=== PATIENT | female | born 1950 | race Caucasian/White ===

== ENCOUNTER → 2016-07-30 | Outpatient (CLI) | payer MEDICARE ==
--- NOTE | 2016-07-30 12:13 | US ---
EXAMINATION TYPE: US pelvis complete transvag DATE OF EXAM: 07/30/2016 11:58 AM COMPARISON: CT scan abdomen pelvis 2012 CLINICAL HISTORY: Menorrhagia N92.4. PMB, hx of tubal ligation TECHNIQUE: Transvaginal (TV) and Transabdominal (TA) Date of LMP: unknown, EXAM MEASUREMENTS: Uterus: 9.9 x 6.2 x 4.5 cm Endometrial Stripe: 2.9 cm Left Ovary: 2.7 x 1.6 x 1.0 cm 1. Uterus: Anteverted 2. Endometrium: thickened, heterogenous, vascular 3. Right Ovary: Obscured by overlying bowel gas 4. Left Ovary: wnl as visualized Spectral, color and waveform doppler imaging shows good arterial and venous flow within the ovaries ; there is no evidence for ovarian torsion. 5. Bilateral Adnexa: wnl 6. Posterior cul-de-sac: no free fluid. Prominent non peristalsing loop of bowel vs mass off MEHDI = 5.9 x 4.3 x 3.5 cm IMPRESSION: 1. Endometrium is thickened measuring 2.9 cm and heterogeneous. Endometrial pathology including hyper plasia or carcinoma in the differential diagnosis. 2. There is fullness in the lower uterine segment. Difficult to determine by ultrasound whether this is related to bowel loops versus mass measuring 5.[address] of the pelvis for further evalua tion.
== END | disposition home or self-care (01) ==
LOC: RADUSWWP 10:22
PROVIDERS: ATTEND Internal Medicine
DX: R93.8 Abnormal findings on diagnostic imaging of other specified body structures (principal); N85.9 Noninflammatory disorder of uterus, unspecified; N92.0 Excessive and frequent menstruation with regular cycle
CPT/HCPCS: 76830; 76856

== ENCOUNTER → 2016-08-01 | Outpatient (CLI) | payer MEDICARE ==
--- NOTE | 2016-08-01 15:14 | CT ---
EXAMINATION TYPE: CT pelvis w con DATE OF EXAM: 08/01/2016 2:50 PM REFERENCE: Previous study dated 03/02/2013 HISTORY: R19.09 pelvic mass HISTORY: Vaginal bleeding/spotting. CT DLP: 1297 mGy Automated exposure control for dose reduction was used. TECHNIQUE: Helical acquisition through the abdomen and pelvis was obtained following the oral ingesti on of with Oral Contrast and following intravenous administration of 100 mL of Omnipaque 300. The ronan a was reformatted in axial, coronal and sagittal projections. FINDINGS: There are multiple gallstones within the gallbladder. The uterus is mildly prominent and anteverted. Endometrial stripe measures 2.1 cm. Both ovaries appea r normal. The bladder is normal. There is no significant diverticular change and there is no radiographic evidence of diverticulitis. The appendix is not visualized. Visualized loops of small bowel appear normal. There is no free fluid and no free air. There is facet arthropathy in the lower lumbar facets. There is disc space loss and a vacuum phenomen a present at L2-3. IMPRESSION: 1. UTERUS IS SLIGHTLY PROMINENT WITH A THICKENED ENDOMETRIAL STRIPE. 2. CHOLELITHIASIS. 3. DEGENERATIVE CHANGES WITHIN THE SPINE. RECOMMENDATION: MRI OF THE PELVIS.
== END | disposition home or self-care (01) ==
LOC: RADCTMAIN 12:11
PROVIDERS: ATTEND Internal Medicine
DX: R93.8 Abnormal findings on diagnostic imaging of other specified body structures (principal); N92.1 Excessive and frequent menstruation with irregular cycle
CPT/HCPCS: 72193; Q9967

== ENCOUNTER → 2016-08-08 | Outpatient (CLI) | payer MEDICARE ==
--- NOTE | 2016-08-09 13:56 | MM ---
Reason for exam: screening (asymptomatic). Last mammogram was performed 5 years and 2 months ago. History: Patient is postmenopausal. Took hormonal contraceptives for 2 years. Took other hormone for 50 years. Physical Findings: A clinical breast exam by your physician is recommended on an annual basis and results should be correlated with mammographic findings. MG 3D Screening Mammo W/Cad Bilateral CC and MLO view(s) were taken. Prior study comparison: June 05, 2011, bilateral digital screening mammo w/CAD. June 28, 2009, mammogram, performed at [facility]. There are scattered fibroglandular densities. No suspicious calcifications. Enlarged right axillary lynph node. ASSESSMENT: Incomplete: need additional imaging evaluation, BI-RAD 0 RECOMMENDATION: Ultrasound of the right breast. [facility] will attempt to contact patient to return for ultrasound. Manage patient on a clinical basis.
== END | disposition home or self-care (01) ==
LOC: RADMAMWWP 13:19
PROVIDERS: ATTEND Internal Medicine
DX: Z12.31 Encounter for screening mammogram for malignant neoplasm of breast (principal); R92.2 Inconclusive mammogram
CPT/HCPCS: 77063; G0202

== ENCOUNTER → 2016-08-15 | Outpatient (CLI) | payer MEDICARE ==
--- NOTE | 2016-08-15 08:56 | USB ---
Reason for exam: additional evaluation requested from abnormal screening. History: Patient is postmenopausal. Took hormonal contraceptives for 2 years. Took other hormone for 50 years. Physical Findings: Nurse did not find any significant physical abnormalities on exam. US Breast Workup RT Right breast ultrasound includes all four quadrants, the retroareolar region and axilla. Finding demonstrate a 6 x 4 x 7mm oval, solid, hypoechoic, vascular lesion at 1 o'clock, multiple lymph nodes, largest 7mm at axilla tail and a 22 x 7 x 20mm irregular, solid, hypoechoic, vascular at boil in the axilla. These results were verbally communicated with the patient and result sheet given to the patient on 08/15/16 ASSESSMENT: Probably benign, BI-RAD 3 RECOMMENDATION: Ultrasound of the right breast in 6 months. 1 o'clock Manage patient on a clinical basis with regard to boil.
== END | disposition home or self-care (01) ==
LOC: RADUSWWP 07:30
PROVIDERS: ATTEND Internal Medicine
DX: R92.8 Other abnormal and inconclusive findings on diagnostic imaging of breast (principal)

== ENCOUNTER 2016-12-09 17:16 | Emergency (ER) | payer MEDICARE, OTHER ==
--- NOTE | 2016-12-09 18:04 | ED ---
General Adult HPI - General Chief complaint: Recheck/Abnormal Lab/Rx Stated complaint: female gu Time Seen by Provider: 12/09/16 17:24 Source: patient, RN notes reviewed Mode of arrival: ambulatory Limitations: no limitations - History of Present Illness Initial comments: 66-year-old female presents to the emergency department with a chief complaint of concern for fistula. Patient has stage III endometrial cancer. She states that for the past 10 days she's been passing some gas through her vaginal area so she is concerned that she may have a fistula. Patient states that she called her cancer doctor and he told her that she needed to see her [employer] oncologist. She states that she is here because she just wants the diagnostic test that when she follows up with her [employer] oncologist. He now what to do admit him start the next step. Patient denies pain with this she states she is not passing stool through the vagina. Patient denies any other symptoms at this time. Patient denies any recent fever, chills, shortness of breath, chest pain, back pain, abdominal pain, nausea vomiting, numbness or tingling, dysuria or hematuria, constipation or diarrhea, headaches or visual changes, or any other current symptoms. - Related Data Home Medications Medication Instructions Recorded Confirmed Diltiazem Oral [Cardizem*] 180 mg PO DAILY 08/19/13 12/09/16 Levothyroxine Sodium [Synthroid] 150 mcg PO DAILY 11/26/14 12/09/16 Citalopram Hydrobromide [CeleXA] 40 mg PO DAILY 12/09/16 12/09/16 Folic Acid 0.4 mg PO DAILY 12/09/16 12/09/16 Hydrocodone/Acetaminophen [[place] 1 tab PO Q6HR PRN 12/09/16 12/09/16 7.5-325] Methocarbamol [Robaxin-750] 750 mg PO Q6HR PRN 12/09/16 12/09/16 Multivitamins, Thera [Multivitamin 1 tab PO DAILY 12/09/16 12/09/16 (formulary)] Allergies Allergy/AdvReac Type Severity Reaction Status Date / Time No Known Allergies Allergy Verified 12/09/16 18:02 Review of Systems ROS Statement: Those systems with pertinent positive or pertinent negative responses have been documented in the HPI. ROS Other: All systems not noted in ROS Statement are negative. 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 Occassional left shoulder pain. Knee Problems progressing, beginning off issues of urinary incontinence. Deteriorating vision due to cataracts and subjective loss of hearing increasing with age. chronic back pain, used to use cpap machine before bariatric sx-no longer needed endometrial ca with mets to bladder and colon History of Any Multi-Drug Resistant Organisms: None Reported Past Surgical History: Bariatric Surgery, Tonsillectomy, Tubal Ligation Additional Past Surgical History / Comment(s): Gastric Stapling 1978, pilonidal cyst removed pain associated with knees. D&C, URSZULA-EN-Y,SUBTOTAL GASTRECTOMY, EGD. Past Anesthesia/Blood Transfusion Reactions: Motion Sickness Past Psychological History: Anxiety, Depression Smoking Status: Never smoker Past Alcohol Use History: None Reported Past Drug Use History: None Reported - Past Family History Mother Family Medical History: Neurologic Disorder Additional Family Medical History / Comment(s): PACEMAKER, PARKINSONS Father Family Medical History: Myocardial Infarction ([place]) Additional Family Medical History / Comment(s): AFTER HAVING HIS 3RD [place] General Exam Limitations: no limitations General appearance: alert, in no apparent distress ENT exam: Present: normal exam, mucous membranes moist Neck exam: Present: normal inspection. Absent: tenderness, meningismus, lymphadenopathy Respiratory exam: Present: normal lung sounds bilaterally. Absent: respiratory distress, wheezes, rales, rhonchi, stridor Cardiovascular Exam: Present: regular rate, normal rhythm, normal heart sounds. Absent: systolic murmur, diastolic murmur, rubs, gallop, clicks GI/Abdominal exam: Present: soft, normal bowel sounds. Absent: distended, tenderness, guarding, rebound, rigid Neurological exam: Present: alert, oriented X3 Psychiatric exam: Present: normal affect, normal mood Skin exam: Present: warm, dry, intact, normal color. Absent: rash Course Vital Signs 12/09/16 12/09/16 17:19 19:13 Temperature 97.7 F Pulse Rate 86 80 Respiratory 16 18 Rate Blood Pressure 113/59 116/57 O2 Sat by Pulse 100 100 Oximetry Medical Decision Making - Medical Decision Making 66-year-old female presents to the emergency department with a chief complaint of passing gas through vagina. At this time patient's CAT scan is been reviewed. We did thoroughly discuss the results and gave her copy of her results as well as a CT. She states she will follow-up with her doctor for this. She understand our hospital. This time we will discharge the patient. We discussed return parameters patient stated that she understood. Disposition Clinical Impression: Endometrial cancer, Fistula Disposition: HOME SELF-CARE Condition: Stable Instructions: Rectal Pain (ED) Additional Instructions: Please use medication as discussed. Please follow up with family doctor if symptoms have not improved over the next two days. Please return to the emergency room if your symptoms increase or worsen or for any other concerns. Referrals: Tereso Brown MD [Primary Care Provider] - 1-2 days Time of Disposition: 19:41
[2016-12-09 19:14] VITALS: BP 116/57; PULSE 80; RESP 18
--- NOTE | 2016-12-09 19:32 | CT ---
EXAMINATION TYPE: CT pelvis wo con DATE OF EXAM: 12/09/2016 COMPARISON: NONE HISTORY: Patient complains of passing gas through vagina. CT DLP: 958 mGycm Automated exposure control for dose reduction was used. FINDINGS: Although no direct fistulous communication is seen through the rectum to the uterus, vagina, or endom etrium, there is concern for fistula versus dehiscence of the known endometrial carcinoma and myometr ium as there is periuterine foci of free air. Small amount of adjacent free fluid is seen as well as diffuse rectal/distal sigmoid colonic eccentric anterior lobulated thickening with concern for invasi on such as on series 7 image 74. Within the remainder the visualized abdomen there are numerous calcified gallstones. Visualized porti on of the liver is grossly unremarkable. Air is noted within the left renal collecting system, howeve r a left ureteral stent is in place. No evidence of hydronephrosis. Small fat filled periumbilical he rnia is noted. Moderate amount of stool is seen within the colon. No evidence of bowel obstruction. P ancreas is atrophied and its visualized portions. Numerous prominent periaortic lymph nodes are seen. Mild degenerative changes of the visualized lumbosacral spine. IMPRESSION: NO DISCRETE FISTULOUS COMMUNICATION WITH THE RECTUM TO UTERUS, VAGINA OR ENDOMETRIUM. NUMEROUS FOCI O F PERIUTERINE FREE AIR INDICATIVE EITHER SMALL NONVISUALIZED RECTAL FISTULA OR DEHISCENCE OF THE KNOW N ENDOMETRIAL CARCINOMA/MYOMETRIUM. ADDITIONALLY ECCENTRIC THICKENING OF THE RECTUM AND DISTAL SIGMOI D COLON IS HIGHLY CONCERNING FOR INVASION OF NEOPLASM VERSUS LESS LIKELY REACTIVE INFLAMMATORY CHANGE .
[2016-12-09 19:49] VITALS: TEMP 98
== END 2016-12-09 19:49 | disposition home or self-care (01) ==
LOC: EC 17:16
DX: C54.1 Malignant neoplasm of endometrium (principal); N82.8 Other female genital tract fistulae; E07.9 Disorder of thyroid, unspecified; I11.0 Hypertensive heart disease with heart failure; I50.9 Heart failure, unspecified; M19.90 Unspecified osteoarthritis, unspecified site; F41.9 Anxiety disorder, unspecified; F32.9 Major depressive disorder, single episode, unspecified; G47.30 Sleep apnea, unspecified; Z99.89 Dependence on other enabling machines and devices; Z79.899 Other long term (current) drug therapy
CPT/HCPCS: 72192; 99283

== ENCOUNTER → 2017-03-02 | Outpatient (CLI) | payer MEDICARE, OTHER ==
--- NOTE | 2017-03-05 11:26 | PE ---
Nuclear medicine PET/CT HISTORY: C 54.1, subsequent Patient received 15.1 mCi F-18 FDG intravenously in delayed scanning was performed from the skull bas e to the mid thighs. Localization and attenuation correction CT scan was performed. Correlation to prior nuclear medicine PET/CT 10/31/2016, prior CT pelvis 12/09/2014 Neck and chest: No suspicious hypermetabolic uptake. No evident adenopathy. There is a port in the le ft pectoral region coursing via the subclavian approach into the superior vena cava. Pulmonary artery appears prominently on the right, correlate to exclude pulmonary artery hypertension. Coronary arter y calcifications are present. No pleural or pericardial effusion. Small prevascular nodes are present . No evident lung mass. Abdomen pelvis: There is postop change to the stomach and bowel in the upper abdomen. Metallic densit ies in the left upper quadrant cause streak artifact which could limit the exam. Gallstones are noted . Liver shows no definite mass on this noncontrast exam, no suspicious hypermetabolic uptake. Ostomy site present in the left lower quadrant. Retroperitoneal adenopathy is present as on prior between the inferior vena cava and aorta, axial monet ge 152 nonfused image showing associated hypermetabolic uptake, SUV is 10.5. Bilateral double-J ureteral stents are in place. Within the right iliac distribution at the level of the proximal external iliac vasculature there is an enlarged node which is more conspicuous than prior exam, axial image 205, there is associated hype rmetabolic uptake, SUV is 11.6. At the level of the rectosigmoid junction there is postop change pres ent, focal abnormal thickening of the bowel with associated tethering is present at this level, SUV i s 6.1. Uterus is not present. MUSCULOSKELETAL: Muscle uptake is thought to be physiologic. Bone show a stable appearance. IMPRESSION: Retroperitoneal, right pelvic adenopathy as on prior nuclear medicine PET/CT. Difficult t o exclude local recurrence of the anastomotic site at the rectosigmoid junction, consider endoscopy a lthough findings may be postoperative. Additional findings above.
== END | disposition home or self-care (01) ==
LOC: RADPETMAIN 07:51
PROVIDERS: ATTEND Internal Medicine
DX: C54.1 Malignant neoplasm of endometrium (principal); R59.0 Localized enlarged lymph nodes
CPT/HCPCS: 78815; A9552

== ENCOUNTER 2017-08-18 18:06 | Emergency (ER) | payer MEDICARE, OTHER ==
[2017-08-18 18:15] VITALS: TEMP 98.7
[2017-08-18] MEDS ORDERED: SODIUM CHLORIDE 0.9% 1,000 ML IV STA (18:43)
[2017-08-18] MEDS ORDERED: SODIUM CHLORIDE 0.9% 500 ML IV STA (18:43)
[2017-08-18 19:09] LABS: Basophils % (A) 0 %; Eosinophils # (A) 0.2 k/uL (0-0.7); Eosinophils % (A) 2 %; HCT 41.7 % (34.0-46.0); Lymphocytes # (A) 1.2 k/uL (1.0-4.8); Lymphocytes % (A) 15 %; MCH 32.5 pg (25.0-35.0); MCHC 33.5 g/dL (31.0-37.0); Mean Platelet Volume 6.3; Monocytes # (A) 0.5 k/uL (0-1.0); Monocytes % (A) 6 %; Neutrophils # (A) 5.8 k/uL (1.3-7.7); Neutrophils % (A) 73 %; Platelet Count 300 k/uL (150-450); RDW 12.9 % (11.5-15.5)
[2017-08-18 19:16] LABS: Albumin 4.1 g/dL (3.5-5.0); Calcium 9.4 mg/dL (8.4-10.2); Total Bilirubin 0.4 mg/dL (0.2-1.3)
[2017-08-18 19:18] LABS: Appearance,Urine Cloudy (Clear); Bacteria,Urine Few /hpf; Bilirubin,Urine Negative (Negative); Blood,Urine Moderate (Negative); Budding Yeast,Urine Rare /hpf; Color,Urine Yellow; Glucose,Urine (UA) Negative (Negative); Ketones,Urine Negative (Negative); Leukocyte Esterase,Urine Large (Negative); Mucus,Urine Rare /hpf; Nitrite,Urine Negative (Negative); PH, Urine 6.5 (5.0-8.0); Protein,Urine 1+ (Negative); RBC,Urine 86 /hpf (0-5); Squamous Epithelial Cell,Urine 2 /hpf (0-4); Urobilinogen,Urine <2.0 mg/dL (<2.0); WBC,Urine >182 /hpf (0-5)
--- NOTE | 2017-08-18 19:20 | ED ---
Abdominal Pain HPI - General Chief Complaint: Abdominal Pain Stated Complaint: Abd Pain, Hernia Time Seen by Provider: 08/18/17 18:28 Source: patient Mode of arrival: ambulatory Limitations: no limitations - History of Present Illness Initial Comments: 66 years O female presents with the abdominal pain and now she feels there is some hardening or there is a rounded lump around her colostomy area also suspect that colostomy maybe is not working adequately. Unfortunately she has a quite complex past surgical history he was diagnosed about 8 months ago with endometrial cancer with metastases to the bowels ureter and bladder, she is not on any chemo or radiation at this point. Denies any fever no chills no nausea no vomiting colostomy is working she had some stool this morning and she denies any nausea vomiting and review of system is unremarkable - Related Data Home Medications Medication Instructions Recorded Confirmed Diltiazem Oral [Cardizem*] 120 mg PO DAILY 08/19/13 05/03/17 Levothyroxine Sodium [Synthroid] 150 mcg PO DAILY 11/26/14 05/03/17 Citalopram Hydrobromide [CeleXA] 40 mg PO DAILY 12/09/16 05/03/17 Folic Acid 0.4 mg PO DAILY 12/09/16 05/03/17 Hydrocodone/Acetaminophen [[place] 1 tab PO Q6HR PRN 12/09/16 05/03/17 7.5-325] Multivitamins, Thera [Multivitamin 1 tab PO DAILY 12/09/16 05/03/17 (formulary)] Nitrofurantoin Monohyd/M-Cryst 100 mg PO BID 04/24/17 05/03/17 [Macrobid] fentaNYL [Duragesic 12MCG/HR] 12 mcg TRANSDERM Q72H 04/24/17 05/03/17 Allergies Allergy/AdvReac Type Severity Reaction Status Date / Time No Known Allergies Allergy Verified 08/18/17 18:10 Review of Systems ROS Statement: Those systems with pertinent positive or pertinent negative responses have been documented in the HPI. ROS Other: All systems not noted in ROS Statement are negative. 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 ENDOMETRIAL AND COLON CANCER. History of Any Multi-Drug Resistant Organisms: None Reported Past Surgical History: Bariatric Surgery, Bladder Surgery, Bowel Resection, Hysterectomy, Tonsillectomy, Tubal Ligation Additional Past Surgical History / Comment(s): Gastric Stapling 1978, pilonidal cyst removed pain associated with knees. D&C, URSZULA-EN-Y,SUBTOTAL GASTRECTOMY, EGD. 2 URINARY STENTS. COLOSTOMY. Past Anesthesia/Blood Transfusion Reactions: Motion Sickness Past Psychological History: Anxiety, Depression Smoking Status: Never smoker Past Alcohol Use History: None Reported Past Drug Use History: None Reported - Past Family History Mother Family Medical History: Neurologic Disorder Additional Family Medical History / Comment(s): PACEMAKER, PARKINSONS Father Family Medical History: Myocardial Infarction ([place]) Additional Family Medical History / Comment(s): AFTER HAVING HIS 3RD [place] General Exam - General Exam Comments Initial Comments: General: The patient is awake and alert, in no distress, and does not appear acutely ill. Skin: Skin is warm and dry and no rashes or lesions are noted. Eye: Pupils are equal, round and reactive to light, extra-ocular movements are intact; there is normal conjunctiva bilaterally. Ears, nose, mouth and throat: There are moist mucous membranes and no oral lesions. Neck: The neck is supple, there is no tenderness or JVD. Cardiovascular: There is a regular rate and rhythm. No murmur, rub or gallop is appreciated. Respiratory: To auscultation bilateral, no wheezing no rhonchi no distress respiratory ellison noticed Gastrointestinal: Noticed a area about 5 cm in width surrounding the colostomy is indurated not tender obvious infection noticed on the scan positive bowel sounds no signs of any peritonitis no guarding no rebounds noticed slight tenderness around the stoma. Back: There is no tenderness to palpation in the midline. There is no obvious deformity. Musculoskeletal: Normal ROM, no tenderness, There is no pedal edema. There is no calf tenderness or swelling. No cords were appreciated. Neurological: CN II-XII intact, Cranial nerves III through XII are intact. There are no obvious motor or sensory deficits. Coordination appears grossly intact. Speech is normal. Psychiatric: Cooperative, appropriate mood & affect, normal judgment. Limitations: no limitations Course Vital Signs 08/18/17 08/18/17 18:10 19:54 Temperature 98.7 F Pulse Rate 86 83 Respiratory 18 16 Rate Blood Pressure 116/72 135/63 O2 Sat by Pulse 97 97 Oximetry Upon reassessment noticed CBC is normal His metabolic panel is unremarkable urinalysis is significantly positive CT of the abdomen showed down stoma herniation of at least 2 separate zhao of small bowel activity left midline ostomy 1 with adepressed and another one is markedly dilated concerning for, his peristomal small bowel obstruction, surgery was done at [facility], I am in touch with him [facility] and trying to reach her surgical team so she could be transferred down there, this was discussed with the patient she is agreeable to go to [facility]. [id number] Arteaga him a she agreed to resume the care, she advised us to transfer the patient to the [facility] ER area as soon as EMS arrangements are made she would part for [facility], patient is agreeable with that Medical Decision Making - Lab Data Result diagrams: 08/18/17 18:55 08/18/17 18:55 Lab Results 08/18/17 08/18/17 08/18/17 Range/Units 18:55 18:55 19:00 WBC 8.0 (3.8-10.6) k/uL RBC 4.30 (3.80-5.40) m/uL Hgb 14.0 (11.4-16.0) gm/dL Hct 41.7 (34.0-46.0) % MCV 97.0 (80.0-100.0) fL MCH 32.5 (25.0-35.0) pg MCHC 33.5 (31.0-37.0) g/dL RDW 12.9 (11.5-15.5) % Plt Count 300 (150-450) k/uL Neutrophils % 73 % Lymphocytes % 15 % Monocytes % 6 % Eosinophils % 2 % Basophils % 0 % Neutrophils # 5.8 (1.3-7.7) k/uL Lymphocytes # 1.2 (1.0-4.8) k/uL Monocytes # 0.5 (0-1.0) k/uL Eosinophils # 0.2 (0-0.7) k/uL Basophils # 0.0 (0-0.2) k/uL Sodium 137 (137-145) mmol/L Potassium 5.0 (3.5-5.1) mmol/L Chloride 101 (98-107) mmol/L Carbon Dioxide 25 (22-30) mmol/L Anion Gap 11 mmol/L BUN 22 H (7-17) mg/dL Creatinine 1.04 (0.52-1.04) mg/dL Est GFR (CKD-EPI)AfAm 65 (>60 ml/min/1.73 sqM) Est GFR (CKD-EPI)NonAf 57 (>60 ml/min/1.73 sqM) Glucose 128 H (74-99) mg/dL Calcium 9.4 (8.4-10.2) mg/dL Total Bilirubin 0.4 (0.2-1.3) mg/dL AST 26 (14-36) U/L ALT 29 (9-52) U/L Alkaline Phosphatase 112 (38-126) U/L Total Protein 7.0 (6.3-8.2) g/dL Albumin 4.1 (3.5-5.0) g/dL Amylase 48 (30-110) U/L Lipase 49 (23-300) U/L Urine Color Yellow Urine Appearance Cloudy H (Clear) Urine pH 6.5 (5.0-8.0) Ur Specific [place] 1.010 (1.001-1.035) Urine Protein 1+ H (Negative) Urine Glucose (UA) Negative (Negative) Urine Ketones Negative (Negative) Urine Blood Moderate H (Negative) Urine Nitrite Negative (Negative) Urine Bilirubin Negative (Negative) Urine Urobilinogen <2.0 (<2.0) mg/dL Ur Leukocyte Esterase Large H (Negative) Urine RBC 86 H (0-5) /hpf Urine WBC >182 H (0-5) /hpf Urine WBC Clumps Moderate H (None) /hpf Ur Squamous Epith Cells 2 (0-4) /hpf Urine Bacteria Few H (None) /hpf Urine Mucus Rare H (None) /hpf Urine Yeast (Budding) Rare H (None) /hpf Disposition Clinical Impression: Abdominal pain, Small bowel obstruction Disposition: OTHER INSTITUTION NOT DEFINED Referrals: Tereso Brown MD [Primary Care Provider] - 1-2 days - Out of Hospital Transfer - Req. Specs Out of Hospital Transfer - Requested Specifics: Other Emergency Center (She will be transferred to [facility], Dr. Arteaga advised that we send the patient to the [facility])
[2017-08-18] MEDS ORDERED: cefTRIAXone 2,000 MG in SODIUM CHLORIDE 0.9% 100 ML IVPB STA (19:23)
[2017-08-18] MEDS ORDERED: cefTRIAXone IN SWFI 2,000 MG/20 ML SYRINGE IVP STA (19:24)
--- NOTE | 2017-08-18 19:28 | XR ---
EXAMINATION TYPE: XR KUB DATE OF EXAM: 08/18/2017 7:23 PM CLINICAL HISTORY: Palpable abnormality of the left lower quadrant. TECHNIQUE: Single upright image of the abdomen is obtained. COMPARISON: 03/15/2013. FINDINGS: Bilateral ureteral stents are noted. Numerous choleliths are seen. Surgical changes are not ed of the left upper quadrant. Moderate amount retained colonic stool is seen. Scattered gas is seen in non-distended small bowel loops. Gas and fecal material is seen in non-distended colon. There is n o visceromegaly, pneumoperitoneum, or abnormal calcification appreciated. The lung bases are clear an d the osseous structures are intact. IMPRESSION: 1. Moderate amount retained colonic stool in an overall nonobstructive bowel gas pattern. 2. Cholelithiasis. 3. Bilateral ureteral stents.
[2017-08-18 19:56] VITALS: RESP 16
--- NOTE | 2017-08-18 21:12 | CT ---
EXAMINATION TYPE: CT abdomen pelvis w con DATE OF EXAM: 08/18/2017 HISTORY: Patient complains of bulge around colostomy. CT DLP: 1624.6mGycm Automated Exposure Control for Dose Reduction was Utilized. CONTRAST: CT scan of the abdomen and pelvis is performed with IV Contrast, patient injected with 100 mL of Isov ue 300. COMPARISON: PET/CT dated 03/02/2017. FINDINGS: LUNG BASES: No significant abnormality is appreciated. LIVER/GB: Multiple lamellated gallstones layer within the gallbladder body and fundus dependently. Un enhanced liver is grossly unremarkable. PANCREAS: Atrophic and partially obscured. SPLEEN: No significant abnormality is seen. ADRENALS: Bilateral adrenal glands are enlarged but maintain adreniform shape suspected to represent underlying adrenal gland hyperplasia. KIDNEYS: Bilateral ureteral stents are identified with residual mild bilateral hydroureter ureteral n ephrosis and periureteral fat stranding in addition to uroepithelial thickening. Distal aspects are w ithin the urinary bladder and proximal aspects are appropriately placed within the renal pelvic colle cting system. BOWEL: In addition to the loop of decompressed presumably transverse colon for which the ostomy was c reated there are least 2 different segments of entering small bowel the more left lateral demonstrate small bowel wall thickening and decompression and entering and exiting loops in the more medial cont aining an anastomotic site and markedly dilated containing small bowel feces sign and just before ent ering measuring up to 6.7 cm, proximally dilated. There is also proximal dilatation and small bowel f eces sign of multiple loops of small bowel in the midline abdomen and low pelvis. Mesenteric congesti on is seen in central surrounding mesenteric haziness. Surgical clips in the left upper cord and crea te extensive spray artifact limiting visualization. Partial gastrectomy appears to have been performe d in addition to the diverting ostomy. Moderate amount retained colonic stool is seen. Colon does not appear dilated. Fat stranding from prior incision site is seen within the ventral abdomen. UTERUS/ADNEXA: Surgically absent. LYMPH NODES: Evaluation for adenopathy is limited given the numerous dilated loops is small bowel. Ho wever there appear to be multiple prominent periaortic and left perirenal lymph nodes such as on seri es 3 image 26 measuring up to 1.1 cm in short axis left paracentrally. Right external chain inguinal adenopathy is also seen measuring up to 1.4 cm in short axis on series 3 image 58 to prominent but no nenlarged superficial inguinal lymph nodes are also noted. OSSEOUS STRUCTURES: Multilevel degenerative change with no suspicious osseous lesion. IMPRESSION: 1. Stomal herniation of at least 2 separate loops of small bowel activity left midline ostomy. One of the loops is decompressed and the other is markedly dilated concerning for stomal/parastomal small b owel obstruction. Correlate with reducibility. 2. Redemonstration of retroperitoneal adenopathy is seen on the prior exam of 03/02/2017 and adenopat hy within the right external iliac chain.
[2017-08-18 23:38] VITALS: BP 119/67; PULSE 79
== END 2017-08-19 00:06 | disposition other institution (70) ==
LOC: EC 18:06
DX: K56.609 Unspecified intestinal obstruction, unspecified as to partial versus complete obstruction (principal); I11.0 Hypertensive heart disease with heart failure; I50.9 Heart failure, unspecified; H91.90 Unspecified hearing loss, unspecified ear; M19.90 Unspecified osteoarthritis, unspecified site; E07.9 Disorder of thyroid, unspecified; G47.30 Sleep apnea, unspecified; F32.9 Major depressive disorder, single episode, unspecified; F41.9 Anxiety disorder, unspecified; Z87.19 Personal history of other diseases of the digestive system; Z99.89 Dependence on other enabling machines and devices; Z98.84 Bariatric surgery status; Z90.710 Acquired absence of both cervix and uterus; Z98.51 Tubal ligation status; Z93.3 Colostomy status; Z96.0 Presence of urogenital implants; Z85.038 Personal history of other malignant neoplasm of large intestine; Z85.51 Personal history of malignant neoplasm of bladder; Z85.54 Personal history of malignant neoplasm of ureter; Z85.42 Personal history of malignant neoplasm of other parts of uterus; Z79.899 Other long term (current) drug therapy
CPT/HCPCS: 36415; 80053; 82150; 83690; 85025; 81001; 87086; 74018; 74177; 99285; 96374; 96361 ×5; J0696; Q9967

== ENCOUNTER 2017-08-28 18:30 | Emergency (ER) | payer MEDICARE, OTHER ==
[2017-08-28 19:07] VITALS: TEMP 98.2
[2017-08-28] MEDS ORDERED: SODIUM CHLORIDE 0.9% 500 ML IV ONE (20:47)
--- NOTE | 2017-08-28 20:51 | ED ---
Abdominal Pain HPI - General Chief Complaint: Abdominal Pain Stated Complaint: Colostomy Problems Time Seen by Provider: 08/28/17 20:30 Source: patient Mode of arrival: ambulatory Limitations: no limitations - History of Present Illness Initial Comments: 67-year-old female patient presents to the emergency department today for evaluation of left lower quadrant abdominal pain and decreased output from her colostomy. Patient states that she has history of colon cancer with subsequent bowel resection and colostomy placement. Patient states that approximately 10 days ago she had similar symptoms with increased pain and decreased output and was transferred to [place] where her surgeon is located. States that she had a hernia repair through the colostomy site 1 week ago. States that over the last 2 days she has had decreased output from the colostomy. Patient states that she has increased pain surrounding the colostomy site with firmness. Patient states she is eating and drinking without difficulty. Denies any nausea or vomiting. Denies any fevers or chills. Denies any hematochezia or melena. States that she does have frequency of urination and dysuria and is concerned she may also have a urinary tract infection. Patient denies any recent rash, shortness breath, chest pain, back pain, numbness, tingling, dizziness, weakness , headache, visual changes, or any other complaints. - Related Data Home Medications Medication Instructions Recorded Confirmed Diltiazem Oral [Cardizem*] 120 mg PO DAILY 08/19/13 05/03/17 Levothyroxine Sodium [Synthroid] 150 mcg PO DAILY 11/26/14 05/03/17 Citalopram Hydrobromide [CeleXA] 40 mg PO DAILY 12/09/16 05/03/17 Folic Acid 0.4 mg PO DAILY 12/09/16 05/03/17 Hydrocodone/Acetaminophen [[place] 1 tab PO Q6HR PRN 12/09/16 05/03/17 7.5-325] Multivitamins, Thera [Multivitamin 1 tab PO DAILY 12/09/16 05/03/17 (formulary)] Nitrofurantoin Monohyd/M-Cryst 100 mg PO BID 04/24/17 05/03/17 [Macrobid] fentaNYL [Duragesic 12MCG/HR] 12 mcg TRANSDERM Q72H 04/24/17 05/03/17 Previous Rx's Medication Instructions Recorded Ciprofloxacin HCl [Cipro] 500 mg PO Q12HR #14 tablet 08/28/17 Allergies Allergy/AdvReac Type Severity Reaction Status Date / Time No Known Allergies Allergy Verified 08/28/17 19:07 Review of Systems ROS Statement: Those systems with pertinent positive or pertinent negative responses have been documented in the HPI. ROS Other: All systems not noted in ROS Statement are negative. 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 ENDOMETRIAL AND COLON CANCER. History of Any Multi-Drug Resistant Organisms: None Reported Past Surgical History: Bariatric Surgery, Bladder Surgery, Bowel Resection, Hysterectomy, Tonsillectomy, Tubal Ligation Additional Past Surgical History / Comment(s): Gastric Stapling 1978, pilonidal cyst removed pain associated with knees. D&C, URSZULA-EN-Y,SUBTOTAL GASTRECTOMY, EGD. 2 URINARY STENTS. COLOSTOMY. Past Anesthesia/Blood Transfusion Reactions: Motion Sickness Past Psychological History: Anxiety, Depression Smoking Status: Never smoker Past Alcohol Use History: None Reported Past Drug Use History: None Reported - Past Family History Mother Family Medical History: Neurologic Disorder Additional Family Medical History / Comment(s): PACEMAKER, PARKINSONS Father Family Medical History: Myocardial Infarction ([place]) Additional Family Medical History / Comment(s): AFTER HAVING HIS 3RD [place] General Exam Limitations: no limitations General appearance: alert, in no apparent distress, other (This is a well- developed, obese adult female patient in no acute distress. Vital signs upon presentation are temperature 98.2F, pulse 77, respirations 16, blood pressure 125/85, pulse ox 97% on room air.) Eye exam: Present: normal appearance, PERRL, EOMI. Absent: scleral icterus, conjunctival injection, periorbital swelling ENT exam: Present: normal exam, normal oropharynx, mucous membranes moist Respiratory exam: Present: normal lung sounds bilaterally. Absent: respiratory distress, wheezes, rales, rhonchi, stridor Cardiovascular Exam: Present: regular rate, normal rhythm, normal heart sounds. Absent: systolic murmur, diastolic murmur, rubs, gallop, clicks GI/Abdominal exam: Present: soft, tenderness (Tenderness surrounding colostomy site), normal bowel sounds, other (firmness just superior to the colostomy. ). Absent: distended, guarding, rebound, rigid Neurological exam: Present: alert, oriented X3, CN II-XII intact Psychiatric exam: Present: normal affect, normal mood Skin exam: Present: warm, dry, intact, normal color. Absent: rash Course Vital Signs 08/28/17 08/28/17 19:05 23:25 Temperature 98.2 F 98.2 F Pulse Rate 77 60 Respiratory 16 18 Rate Blood Pressure 125/85 131/60 O2 Sat by Pulse 97 99 Oximetry Medical Decision Making - Medical Decision Making 67-year-old female patient presents to emergency department today for evaluation of decreased output from her ostomy and is surrounding abdominal pain. Physical examination does reveal some mild tenderness superior to the ostomy site. Labs reviewed and did show evidence of urinary tract infection but no other abnormalities. We did obtain CT of the abdomen and pelvis as patient did have recent procedure for hernia repair. There is no evidence of bowel obstruction at this time and no evidence for acute abdomen and pelvis. I did discuss findings and results with the patient. She is will be given a prescription for urinary tract infection treatment. She is instructed to follow -up with her abdominal surgeon as soon as possible for recheck. Return parameters discussed in detail. She verbalizes understanding and agrees with this plan. - Lab Data Result diagrams: 08/28/17 21:11 08/28/17 21:11 Lab Results 08/28/17 08/28/17 08/28/17 Range/Units 21:11 21:11 21:11 WBC 8.3 (3.8-10.6) k/uL RBC 3.97 (3.80-5.40) m/uL Hgb 12.5 (11.4-16.0) gm/dL Hct 37.7 (34.0-46.0) % MCV 95.0 (80.0-100.0) fL MCH 31.4 (25.0-35.0) pg MCHC 33.0 (31.0-37.0) g/dL RDW 12.6 (11.5-15.5) % Plt Count 349 (150-450) k/uL Neutrophils % 51 % Lymphocytes % 32 % Monocytes % 7 % Eosinophils % 7 % Basophils % 0 % Neutrophils # 4.3 (1.3-7.7) k/uL Lymphocytes # 2.7 (1.0-4.8) k/uL Monocytes # 0.6 (0-1.0) k/uL Eosinophils # 0.6 (0-0.7) k/uL Basophils # 0.0 (0-0.2) k/uL Sodium 137 (137-145) mmol/L Potassium 4.4 (3.5-5.1) mmol/L Chloride 102 (98-107) mmol/L Carbon Dioxide 26 (22-30) mmol/L Anion Gap 9 mmol/L BUN 15 (7-17) mg/dL Creatinine 0.60 (0.52-1.04) mg/dL Est GFR (CKD-EPI)AfAm >90 (>60 ml/min/1.73 sqM) Est GFR (CKD-EPI)NonAf >90 (>60 ml/min/1.73 sqM) Glucose 87 (74-99) mg/dL Calcium 8.7 (8.4-10.2) mg/dL Total Bilirubin 0.2 (0.2-1.3) mg/dL AST 38 H (14-36) U/L ALT 23 (9-52) U/L Alkaline Phosphatase 98 (38-126) U/L Total Protein 6.3 (6.3-8.2) g/dL Albumin 3.4 L (3.5-5.0) g/dL Amylase 45 (30-110) U/L Lipase 109 (23-300) U/L Urine Color Yellow Urine Appearance Turbid H (Clear) Urine pH 7.0 (5.0-8.0) Ur Specific [place] 1.012 (1.001-1.035) Urine Protein Trace H (Negative) Urine Glucose (UA) Negative (Negative) Urine Ketones Negative (Negative) Urine Blood Moderate H (Negative) Urine Nitrite Negative (Negative) Urine Bilirubin Negative (Negative) Urine Urobilinogen <2.0 (<2.0) mg/dL Ur Leukocyte Esterase Large H (Negative) Urine RBC 48 H (0-5) /hpf Urine WBC >182 H (0-5) /hpf Urine WBC Clumps Many H (None) /hpf Ur Squamous Epith Cells 4 (0-4) /hpf Urine Mucus Rare H (None) /hpf - Radiology Data Radiology results: report reviewed, image reviewed CT of the abdomen and pelvis with contrast was obtained. Report was reviewed in its entirety. Impression by Dr. Zaidi shows clearing of mild right- sided hydronephrosis compared to old exam. There is minimal left-sided hydronephrosis that is unchanged. Ureteral stents appear to be in fairly good position. There is less large bowel distention compared to last exam. Disposition Clinical Impression: Abdominal pain, Urinary tract infection Disposition: HOME SELF-CARE Condition: Good Instructions: Abdominal Pain (ED) Additional Instructions: Increase fluids. Follow-up with your abdominal surgeon tomorrow. Complete antibiotic prescription in full. Return here immediately for any new, worsening , or concerning symptoms. Prescriptions: Ciprofloxacin HCl [Cipro] 500 mg PO Q12HR #14 tablet Is patient prescribed a controlled substance at d/c from ED?: No Referrals: Tereso Brown MD [Primary Care Provider] - 1-2 days Time of Disposition: 22:58
[2017-08-28 21:18] LABS: Basophils % (A) 0 %; Eosinophils # (A) 0.6 k/uL (0-0.7); Eosinophils % (A) 7 %; HCT 37.7 % (34.0-46.0); HGB 12.5 gm/dL (11.4-16.0); Lymphocytes # (A) 2.7 k/uL (1.0-4.8); Lymphocytes % (A) 32 %; MCH 31.4 pg (25.0-35.0); Mean Platelet Volume 6.9; Monocytes # (A) 0.6 k/uL (0-1.0); Monocytes % (A) 7 %; Neutrophils # (A) 4.3 k/uL (1.3-7.7); Neutrophils % (A) 51 %; Platelet Count 349 k/uL (150-450); RBC 3.97 m/uL (3.80-5.40); RDW 12.6 % (11.5-15.5); WBC 8.3 k/uL (3.8-10.6)
[2017-08-28 21:35] LABS: ALT 23 U/L (9-52); AST 38 U/L (14-36); Albumin 3.4 g/dL (3.5-5.0); Alkaline Phosphatase 98 U/L (38-126); Amylase 45 U/L (30-110); Anion Gap 9 mmol/L; Blood Urea Nitrogen 15 mg/dL (7-17); Calcium 8.7 mg/dL (8.4-10.2); Carbon Dioxide 26 mmol/L (22-30); Chloride 102 mmol/L (98-107); Glucose 87 mg/dL (74-99); Lipase 109 U/L (23-300); Potassium 4.4 mmol/L (3.5-5.1); Sodium 137 mmol/L (137-145); Total Bilirubin 0.2 mg/dL (0.2-1.3); Total Protein 6.3 g/dL (6.3-8.2)
[2017-08-28 21:45] LABS: Appearance,Urine Turbid (Clear); Bilirubin,Urine Negative (Negative); Blood,Urine Moderate (Negative); Color,Urine Yellow; Glucose,Urine (UA) Negative (Negative); Ketones,Urine Negative (Negative); Leukocyte Esterase,Urine Large (Negative); Mucus,Urine Rare /hpf; Nitrite,Urine Negative (Negative); Protein,Urine Trace (Negative); RBC,Urine 48 /hpf (0-5); Specific Gravity,Urine 1.012 (1.001-1.035); Squamous Epithelial Cell,Urine 4 /hpf (0-4); Urobilinogen,Urine <2.0 mg/dL (<2.0); WBC,Urine >182 /hpf (0-5)
--- NOTE | 2017-08-28 22:24 | CT ---
EXAMINATION TYPE: CT abdomen pelvis w con DATE OF EXAM: 08/28/2017 COMPARISON: 08/18/2017 HISTORY: abdominal pain following hernia repair, recent bowel resection for colon ca CT DLP: 1563.6 mGycm Automated exposure control for dose reduction was used. TECHNIQUE: Helical acquisition of images was performed from the lung bases through the pelvis. CONTRAST: Performed without Oral Contrast and with IV Contrast, patient injected with 100 mL of Isovue 300. FINDINGS: The lung bases are clear of infiltrate. There is no pleural effusion. There is no pericardial effusio n. Liver spleen pancreas appear normal. Bile ducts are not dilated. There are numerous calcified gall stones. There is no adrenal mass. There is mild left-sided hydronephrosis. There are bilateral double-J urete ral stents. These appear in fairly good position. There is anterior abdominal wall surgery. There is a left-sided colostomy. There is some air anterior ly that is probably in loops of bowel. A small pneumoperitoneum cannot be entirely excluded. I see no intestinal wall thickening. There are no dilated loops. Bladder distends smoothly. I see no pelvic m ass. There is no ascites. I see no bony destructive process. IMPRESSION: THERE IS CLEARING OF MILD RIGHT-SIDED HYDRONEPHROSIS COMPARED TO OLD EXAM. THERE IS A MINIMAL LEFT-SI DED HYDRONEPHROSIS THAT IS UNCHANGED. URETERAL STENTS APPEAR TO BE IN FAIRLY GOOD POSITION. THERE IS LESS LARGE BOWEL DISTENTION COMPARED TO LAST EXAM.
[2017-08-28] MEDS ORDERED: cefTRIAXone IN SWFI 1,000 MG/10 ML SYRINGE IVP STA (22:56)
[2017-08-28 23:26] VITALS: BP 131/60; PULSE 60; RESP 18
== END 2017-08-28 23:25 | disposition home or self-care (01) ==
LOC: EC 18:30
DX: N39.0 Urinary tract infection, site not specified (principal); I11.0 Hypertensive heart disease with heart failure; I50.9 Heart failure, unspecified; M19.90 Unspecified osteoarthritis, unspecified site; E07.9 Disorder of thyroid, unspecified; F41.9 Anxiety disorder, unspecified; F32.9 Major depressive disorder, single episode, unspecified; G47.30 Sleep apnea, unspecified; Z99.89 Dependence on other enabling machines and devices; Z85.42 Personal history of malignant neoplasm of other parts of uterus; Z85.038 Personal history of other malignant neoplasm of large intestine; Z98.84 Bariatric surgery status; Z90.710 Acquired absence of both cervix and uterus; Z98.890 Other specified postprocedural states; Z98.51 Tubal ligation status; Z93.3 Colostomy status; Z79.891 Long term (current) use of opiate analgesic; Z79.899 Other long term (current) drug therapy
CPT/HCPCS: 36415; 80053; 82150; 83690; 85025; 81001; 74177; 99284; 96374; 96361; J0696; Q9967

== ENCOUNTER 2018-01-13 22:10 | Emergency (ER) | payer MEDICARE, OTHER ==
[2018-01-13 22:21] VITALS: RESP 18
--- NOTE | 2018-01-13 23:07 | ED ---
General Adult HPI - General Chief complaint: GI Bleed Stated complaint: rectal bleeding;pain from Stage 4 cancer Time Seen by Provider: 01/13/18 22:24 Source: patient, RN notes reviewed Mode of arrival: ambulatory Limitations: no limitations - History of Present Illness Initial comments: This is a 67-year-old female with a history of uterine as well as colorectal cancer status post hysterectomy status post colostomy who states she's been having blood per rectum and blood in her urine for quite a few weeks also states she's been having chronic pain in his been using one half of her fentanyl patches and has since run out also run out of her OxyContin code own is due to be replaced on 2 days now who is here today because of pain also because of bleeding. She is a palliative care. Denies any fevers chills sweats per her friend was whether she does look more pale than usual. She has no other complaints this time. - Related Data Home Medications Medication Instructions Recorded Confirmed Levothyroxine Sodium [Synthroid] 150 mcg PO DAILY 11/26/14 01/13/18 Citalopram Hydrobromide [CeleXA] 40 mg PO DAILY 12/09/16 01/13/18 Multivitamins, Thera [Multivitamin 1 tab PO DAILY 12/09/16 01/13/18 (formulary)] Acetaminophen [Tylenol Arthritis] 650 mg PO BID 01/13/18 01/13/18 Decadron (Unknown) 1 tab PO DAILY 01/13/18 Diltiazem Cd [Cardizem CD] 120 mg PO DAILY 01/13/18 01/13/18 Ergocalciferol (Vitamin D2) 50,000 unit PO Q7D 01/13/18 01/13/18 [Drisdol] Ibuprofen [Motrin] 800 mg PO TID 01/13/18 01/13/18 K-Dur (Unknown) 1 tab PO DAILY 01/13/18 L.acidoph,Paracasei, B.lactis 1 cap PO DAILY 01/13/18 01/13/18 [Probiotic] Lasix (Unknown) 1 tab PO DAILY 01/13/18 Omeprazole 20 mg PO DAILY 01/13/18 01/13/18 SILVER sulfADIAZINE Cream 1 applic TOPICAL DAILY 01/13/18 01/13/18 [Silvadene 1% Cream] Sulfamethoxazole/Trimethoprim 1 tab PO BID 01/13/18 01/13/18 [Bactrim DS 800-160 mg] oxyCODONE-APAP 5-325MG [Percocet 1 tab PO QID 01/13/18 01/13/18 5-325 mg] Previous Rx's Medication Instructions Recorded Hydrocodone/Acetaminophen [Freeburn 1 tab PO Q4HR PRN 3 Days #18 tab 01/14/18 7.5-325] Allergies Allergy/AdvReac Type Severity Reaction Status Date / Time No Known Allergies Allergy Verified 01/13/18 23:18 Review of Systems ROS Statement: Those systems with pertinent positive or pertinent negative responses have been documented in the HPI. ROS Other: All systems not noted in ROS Statement are negative. 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 ENDOMETRIAL AND COLON CANCER. History of Any Multi-Drug Resistant Organisms: None Reported Past Surgical History: Bariatric Surgery, Bladder Surgery, Bowel Resection, Hysterectomy, Tonsillectomy, Tubal Ligation Additional Past Surgical History / Comment(s): Gastric Stapling 1978, pilonidal cyst removed pain associated with knees. D&C, URSZULA-EN-Y,SUBTOTAL GASTRECTOMY, EGD. 2 URINARY STENTS. COLOSTOMY. Past Anesthesia/Blood Transfusion Reactions: Motion Sickness Past Psychological History: Anxiety, Depression Smoking Status: Never smoker Past Alcohol Use History: None Reported Past Drug Use History: None Reported - Past Family History Mother Family Medical History: Neurologic Disorder Additional Family Medical History / Comment(s): PACEMAKER, PARKINSONS Father Family Medical History: Myocardial Infarction ([place]) Additional Family Medical History / Comment(s): AFTER HAVING HIS 3RD CT General Exam - General Exam Comments Initial Comments: Is a well-developed well-nourished awake alert but pale appearing female Limitations: no limitations General appearance: alert, in no apparent distress Head exam: Present: atraumatic, normocephalic, normal inspection Eye exam: Present: other (Pale conjunctiva) Pupils: Present: normal accommodation ENT exam: Present: normal exam, mucous membranes moist Neck exam: Present: normal inspection. Absent: tenderness, meningismus, lymphadenopathy Respiratory exam: Present: normal lung sounds bilaterally. Absent: respiratory distress, wheezes, rales, rhonchi, stridor Cardiovascular Exam: Present: regular rate, normal rhythm, normal heart sounds. Absent: systolic murmur, diastolic murmur, rubs, gallop, clicks GI/Abdominal exam: Present: soft, normal bowel sounds. Absent: distended, tenderness, guarding, rebound, rigid Extremities exam: Present: normal inspection, full ROM, normal capillary refill. Absent: tenderness, pedal edema, joint swelling, calf tenderness Back exam: Present: normal inspection Neurological exam: Present: alert, oriented X3, CN II-XII intact Psychiatric exam: Present: normal affect, normal mood Skin exam: Present: warm, dry, intact, pallor. Absent: normal color, rash Course Vital Signs 01/13/18 22:15 Temperature 99.3 F Pulse Rate 89 Respiratory 18 Rate Blood Pressure 165/82 O2 Sat by Pulse 98 Oximetry Medical Decision Making - Medical Decision Making I did discuss findings with the patient. Hemoglobin is within normal limits the history further workup at this time. She'll be discharged she did receive fentanyl patch and will get a short course of replacement Freeburn until she get her prescription filled 2 days.( - Lab Data Result diagrams: 01/13/18 23:20 01/13/18 23:20 Lab Results 01/13/18 01/13/18 01/13/18 Range/Units 23:20 23:20 23:20 WBC 7.1 (3.8-10.6) k/uL RBC 3.80 (3.80-5.40) m/uL Hgb 12.2 (11.4-16.0) gm/dL Hct 36.8 (34.0-46.0) % MCV 96.9 (80.0-100.0) fL MCH 32.0 (25.0-35.0) pg MCHC 33.0 (31.0-37.0) g/dL RDW 14.4 (11.5-15.5) % Plt Count 210 (150-450) k/uL Neutrophils % 88 % Lymphocytes % 6 % Monocytes % 5 % Eosinophils % 1 % Basophils % 0 % Neutrophils # 6.2 (1.3-7.7) k/uL Lymphocytes # 0.4 L (1.0-4.8) k/uL Monocytes # 0.3 (0-1.0) k/uL Eosinophils # 0.1 (0-0.7) k/uL Basophils # 0.0 (0-0.2) k/uL Sodium 136 L (137-145) mmol/L Potassium 4.1 (3.5-5.1) mmol/L Chloride 108 H (98-107) mmol/L Carbon Dioxide 22 (22-30) mmol/L Anion Gap 6 mmol/L BUN 37 H (7-17) mg/dL Creatinine 0.63 (0.52-1.04) mg/dL Est GFR (CKD-EPI)AfAm >90 (>60 ml/min/1.73 sqM) Est GFR (CKD-EPI)NonAf >90 (>60 ml/min/1.73 sqM) Glucose 132 H (74-99) mg/dL Calcium 8.2 L (8.4-10.2) mg/dL Magnesium 2.3 (1.6-2.3) mg/dL Total Bilirubin 0.4 (0.2-1.3) mg/dL AST 19 (14-36) U/L ALT 22 (9-52) U/L Alkaline Phosphatase 54 (38-126) U/L Total Protein 5.4 L (6.3-8.2) g/dL Albumin 2.9 L (3.5-5.0) g/dL Urine Color Red Urine Appearance Turbid H (Clear) Urine pH 6.0 (5.0-8.0) Ur Specific [place] 1.020 (1.001-1.035) Urine Protein 2+ H (Negative) Urine Glucose (UA) Negative (Negative) Urine Ketones Negative (Negative) Urine Blood Large H (Negative) Urine Nitrite Negative (Negative) Urine Bilirubin Negative (Negative) Urine Urobilinogen <2.0 (<2.0) mg/dL Ur Leukocyte Esterase Large H (Negative) Urine RBC >182 H (0-5) /hpf Urine WBC >182 H (0-5) /hpf Urine WBC Clumps Moderate H (None) /hpf Ur Squamous Epith Cells 4 (0-4) /hpf Urine Bacteria Rare H (None) /hpf Urine Mucus Rare H (None) /hpf Urine Yeast (Budding) Few H (None) /hpf Disposition Clinical Impression: Intractable pain, Metastatic colon cancer in female, Hematuria Disposition: HOME SELF-CARE Condition: Stable Prescriptions: Hydrocodone/Acetaminophen [Freeburn 7.5-325] 1 tab PO Q4HR PRN 3 Days #18 tab PRN Reason: Pain Is patient prescribed a controlled substance at d/c from ED?: Yes If prescribed controlled substance>3 days was MAPS reviewed?: Yes Referrals: Tereso Brown MD [Primary Care Provider] - 1-2 days
[2018-01-13 23:34] LABS: Basophils % (A) 0 %; Eosinophils # (A) 0.1 k/uL (0-0.7); Eosinophils % (A) 1 %; HCT 36.8 % (34.0-46.0); HGB 12.2 gm/dL (11.4-16.0); Lymphocytes # (A) 0.4 k/uL (1.0-4.8); Lymphocytes % (A) 6 %; MCV 96.9 fL (80.0-100.0); Mean Platelet Volume 6.7; Monocytes # (A) 0.3 k/uL (0-1.0); Monocytes % (A) 5 %; Neutrophils # (A) 6.2 k/uL (1.3-7.7); Neutrophils % (A) 88 %; Platelet Count 210 k/uL (150-450); RDW 14.4 % (11.5-15.5); WBC 7.1 k/uL (3.8-10.6)
[2018-01-13 23:43] LABS: ALT 22 U/L (9-52); AST 19 U/L (14-36); Albumin 2.9 g/dL (3.5-5.0); Alkaline Phosphatase 54 U/L (38-126); Anion Gap 6 mmol/L; Blood Urea Nitrogen 37 mg/dL (7-17); Calcium 8.2 mg/dL (8.4-10.2); Carbon Dioxide 22 mmol/L (22-30); Chloride 108 mmol/L (98-107); Glucose 132 mg/dL (74-99); Magnesium 2.3 mg/dL (1.6-2.3); Potassium 4.1 mmol/L (3.5-5.1); Sodium 136 mmol/L (137-145); Total Bilirubin 0.4 mg/dL (0.2-1.3); Total Protein 5.4 g/dL (6.3-8.2)
[2018-01-13 23:53] LABS: Appearance,Urine Turbid (Clear); Bacteria,Urine Rare /hpf; Bilirubin,Urine Negative (Negative); Blood,Urine Large (Negative); Budding Yeast,Urine Few /hpf; Color,Urine Red; Glucose,Urine (UA) Negative (Negative); Ketones,Urine Negative (Negative); Leukocyte Esterase,Urine Large (Negative); Mucus,Urine Rare /hpf; Nitrite,Urine Negative (Negative); Protein,Urine 2+ (Negative); RBC,Urine >182 /hpf (0-5); Squamous Epithelial Cell,Urine 4 /hpf (0-4); Urobilinogen,Urine <2.0 mg/dL (<2.0); WBC,Urine >182 /hpf (0-5)
[2018-01-14] MEDS ORDERED: fentaNYL (PF) 50 MCG/ML 2 ML AMP IV STA (00:53)
[2018-01-14 01:08] VITALS: BP 141/82; PULSE 77
[2018-01-14 01:32] VITALS: TEMP 98.7
== END 2018-01-14 01:32 | disposition home or self-care (01) ==
LOC: EC 22:10
DX: C18.9 Malignant neoplasm of colon, unspecified (principal); R31.9 Hematuria, unspecified; H11.89 Other specified disorders of conjunctiva; R23.1 Pallor; K62.5 Hemorrhage of anus and rectum; I11.0 Hypertensive heart disease with heart failure; I50.9 Heart failure, unspecified; H91.90 Unspecified hearing loss, unspecified ear; G47.30 Sleep apnea, unspecified; M19.90 Unspecified osteoarthritis, unspecified site; E07.9 Disorder of thyroid, unspecified; F32.9 Major depressive disorder, single episode, unspecified; F41.9 Anxiety disorder, unspecified; Z79.1 Long term (current) use of non-steroidal anti-inflammatories (NSAID); Z79.52 Long term (current) use of systemic steroids; Z79.891 Long term (current) use of opiate analgesic; Z79.899 Other long term (current) drug therapy; Z90.710 Acquired absence of both cervix and uterus; Z85.42 Personal history of malignant neoplasm of other parts of uterus; Z93.3 Colostomy status; Z99.89 Dependence on other enabling machines and devices; Z98.84 Bariatric surgery status; Z98.890 Other specified postprocedural states; Z98.51 Tubal ligation status; Z96.0 Presence of urogenital implants; Z90.49 Acquired absence of other specified parts of digestive tract
CPT/HCPCS: 36415; 80053; 83735; 85025; 81001; 99283; 96374; J3010

== ENCOUNTER 2018-01-19 10:14 | Inpatient (IN) | payer MEDICARE, OTHER ==
[2018-01-19] MEDS ORDERED: SODIUM CHLORIDE 0.9% 1,000 ML IV STA ×2 (10:25)
[2018-01-19] MEDS ORDERED: HYDROmorphone 1 MG/ML 1 ML SYRINGE IVP STA ×3 (11:13→15:33)
--- NOTE | 2018-01-19 11:15 | ED ---
Abdominal Pain HPI - General Chief Complaint: Abdominal Pain Stated Complaint: POSS COLOSTOMY BLOCKAGE, Ca PATIENT Time Seen by Provider: 01/19/18 10:24 Source: patient, RN notes reviewed, old records reviewed Mode of arrival: wheelchair - History of Present Illness Initial Comments: This is a 67-year-old female the ER for evaluation of bowel pain severe bowel pain with nausea vomiting decreased appetite no recent bowel movements decreased urinary output. Patient stage IV terminal CA, she is on palliative care with pain management, denies any recent fevers, she states she does have a chronic urinary tract infection she does not believe this is the issue. She is not keeping down some medications at home very nauseous. She has had blockage in her bowels before feels this may be similar to shows is pretty severe abdominal pain MD Complaint: abdominal pain -: days(s), week(s) Location: diffuse, periumbilical, epigastric, bilateral flank Radiation: epigastric, back Migration to: epigastric Severity: severe Severity scale (1-10): 10 Quality: cramping, stabbing, aching Consistency: constant, intermittent Improves With: medication Worsens With: eating, vomiting Associated Symptoms: nausea, vomiting Treatments Prior to Arrival: prescription analgesics - Related Data Home Medications Medication Instructions Recorded Confirmed Levothyroxine Sodium [Synthroid] 150 mcg PO DAILY 11/26/14 01/19/18 Citalopram Hydrobromide [CeleXA] 40 mg PO DAILY 12/09/16 01/19/18 Multivitamins, Thera [Multivitamin 1 tab PO DAILY 12/09/16 01/19/18 (formulary)] Acetaminophen [Tylenol Arthritis] 650 mg PO BID 01/13/18 01/19/18 Diltiazem Cd [Cardizem CD] 120 mg PO DAILY PRN MDD OVER 120 01/13/18 01/19/18 Ergocalciferol (Vitamin D2) 50,000 unit PO MO 01/13/18 01/19/18 [Drisdol] Ibuprofen [Motrin] 800 mg PO TID PRN 01/13/18 01/19/18 L.acidoph,Paracasei, B.lactis 1 cap PO DAILY 01/13/18 01/19/18 [Probiotic] Omeprazole 20 mg PO DAILY 01/13/18 01/19/18 SILVER sulfADIAZINE Cream 1 applic TOPICAL DAILY PRN 01/13/18 01/19/18 [Silvadene 1% Cream] Sulfamethoxazole/Trimethoprim 1 tab PO BID 01/13/18 01/19/18 [Bactrim DS 800-160 mg] Cyanocobalamin [Vitamin B-12 1,000 mcg SQ QMONTH 01/19/18 01/19/18 Injection] Dexamethasone [Decadron] 2 mg PO BID 01/19/18 01/19/18 Furosemide [Lasix] 20 mg PO DAILY PRN 01/19/18 01/19/18 Methocarbamol [Robaxin] 750 mg PO BID PRN 01/19/18 01/19/18 Potassium Chloride ER [K-Dur 10] 10 meq PO DAILY PRN 01/19/18 01/19/18 fentaNYL 100MCG/HR PATCH 1 patch TRANSDERM Q72H 01/19/18 01/19/18 [Duragesic 100MCG/HR] fentaNYL 50MCG/HR PATCH [Duragesic 1 patch TRANSDERM Q72H 01/19/18 01/19/18 50MCG/HR] oxyCODONE HCL 15 mg PO Q4H PRN 01/19/18 01/19/18 Allergies Allergy/AdvReac Type Severity Reaction Status Date / Time No Known Allergies Allergy Verified 01/19/18 15:08 Review of Systems ROS Statement: Those systems with pertinent positive or pertinent negative responses have been documented in the HPI. ROS Other: All systems not noted in ROS Statement are negative. Past Medical History Past Medical History: Blood Disorder, Cancer, Heart Failure, Hearing Disorder / Deafness, Hypertension, Osteoarthritis (OA), Sleep Apnea/CPAP/BIPAP, Thyroid Disorder Additional Past Medical History / Comment(s): Pt stated that she has enlarged heart and two leaky valves. ENDOMETRIAL AND COLON CANCER. History of Any Multi-Drug Resistant Organisms: None Reported Past Surgical History: Bariatric Surgery, Bladder Surgery, Bowel Resection, Hernia Repair, Hysterectomy, Tonsillectomy, Tubal Ligation Additional Past Surgical History / Comment(s): Gastric Stapling 1978, pilonidal cyst removed pain associated with knees. D&C, URSZULA-EN-Y,SUBTOTAL GASTRECTOMY, EGD. 2 URINARY STENTS. COLOSTOMY. Past Anesthesia/Blood Transfusion Reactions: Motion Sickness Past Psychological History: Anxiety, Depression Smoking Status: Never smoker Past Alcohol Use History: None Reported Past Drug Use History: None Reported - Past Family History Mother Family Medical History: Neurologic Disorder Additional Family Medical History / Comment(s): PACEMAKER, PARKINSONS Father Family Medical History: Myocardial Infarction ([place]) Additional Family Medical History / Comment(s): AFTER HAVING HIS 3RD [place] General Exam General appearance: alert, in no apparent distress Head exam: Present: atraumatic, normocephalic, normal inspection Eye exam: Present: normal appearance, PERRL, EOMI. Absent: scleral icterus, conjunctival injection, periorbital swelling ENT exam: Present: normal exam, mucous membranes moist Neck exam: Present: normal inspection. Absent: tenderness, meningismus, lymphadenopathy Respiratory exam: Present: normal lung sounds bilaterally. Absent: respiratory distress, wheezes, rales, rhonchi, stridor Cardiovascular Exam: Present: regular rate, normal rhythm, normal heart sounds. Absent: systolic murmur, diastolic murmur, rubs, gallop, clicks GI/Abdominal exam: Present: soft, normal bowel sounds. Absent: distended, tenderness, guarding, rebound, rigid Extremities exam: Present: normal inspection, full ROM, normal capillary refill. Absent: tenderness, pedal edema, joint swelling, calf tenderness Back exam: Present: normal inspection Neurological exam: Present: alert, oriented X3, CN II-XII intact Psychiatric exam: Present: normal affect, normal mood Skin exam: Present: warm, dry, intact, normal color. Absent: rash Course Vital Signs 01/19/18 01/19/18 01/19/18 10:18 14:20 15:30 Temperature 98.1 F Pulse Rate 92 74 76 Respiratory 18 18 17 Rate Blood Pressure 132/83 144/87 131/95 O2 Sat by Pulse 96 99 98 Oximetry 01/19/18 15:34 Temperature 98.6 F Pulse Rate Respiratory 20 Rate Blood Pressure O2 Sat by Pulse 98 Oximetry - Reevaluation(s) Reevaluation #1: 01/19/18 11:14 Medical record is reviewed Reevaluation #2: 01/19/18 11:14 Patient has adequate pain control Medical Decision Making - Medical Decision Making 67 female the ER for evaluation of severe abdominal pain, they for CVA patient, patient here with pain control, she does have acute on chronic cholecystitis which with surgery evaluate. - Lab Data Result diagrams: 01/20/18 08:03 01/20/18 08:03 Lab Results 01/19/18 01/19/18 01/19/18 Range/Units 10:51 11:31 11:31 WBC 4.1 (3.8-10.6) k/uL RBC 3.88 (3.80-5.40) m/uL Hgb 12.4 (11.4-16.0) gm/dL Hct 39.0 (34.0-46.0) % MCV 100.4 H (80.0-100.0) fL MCH 32.0 (25.0-35.0) pg MCHC 31.9 (31.0-37.0) g/dL RDW 14.4 (11.5-15.5) % Plt Count 277 (150-450) k/uL Neutrophils % 84 % Lymphocytes % 8 % Monocytes % 7 % Eosinophils % 1 % Basophils % 0 % Neutrophils # 3.4 (1.3-7.7) k/uL Lymphocytes # 0.3 L (1.0-4.8) k/uL Monocytes # 0.3 (0-1.0) k/uL Eosinophils # 0.0 (0-0.7) k/uL Basophils # 0.0 (0-0.2) k/uL Macrocytosis Slight Sodium 135 L (137-145) mmol/L Potassium 4.6 (3.5-5.1) mmol/L Chloride 106 (98-107) mmol/L Carbon Dioxide 23 (22-30) mmol/L Anion Gap 6 mmol/L BUN 29 H (7-17) mg/dL Creatinine 1.02 (0.52-1.04) mg/dL Est GFR (CKD-EPI)AfAm 67 (>60 ml/min/1.73 sqM) Est GFR (CKD-EPI)NonAf 58 (>60 ml/min/1.73 sqM) Glucose 123 H (74-99) mg/dL Plasma Lactic Acid Boby (0.7-2.0) mmol/L Calcium 9.0 (8.4-10.2) mg/dL Total Bilirubin 2.4 H (0.2-1.3) mg/dL AST 526 H (14-36) U/L ALT 358 H (9-52) U/L Alkaline Phosphatase 421 H (38-126) U/L Total Protein 6.1 L (6.3-8.2) g/dL Albumin 3.4 L (3.5-5.0) g/dL Amylase 99 (30-110) U/L Lipase 278 (23-300) U/L Urine Color Dark Brown Urine Appearance Turbid H (Clear) Urine pH 6.0 (5.0-8.0) Ur Specific [place] 1.020 (1.001-1.035) Urine Protein 2+ H (Negative) Urine Glucose (UA) Negative (Negative) Urine Ketones Negative (Negative) Urine Blood Large H (Negative) Urine Nitrite Negative (Negative) Urine Bilirubin 1+ H (Negative) Urine Urobilinogen 4.0 (<2.0) mg/dL Ur Leukocyte Esterase Large H (Negative) Urine RBC >182 H (0-5) /hpf Urine WBC >182 H (0-5) /hpf Ur Squamous Epith Cells 2 (0-4) /hpf Amorphous Sediment Rare H (None) /hpf Urine Bacteria Rare H (None) /hpf Urine Mucus Rare H (None) /hpf Urine Yeast (Budding) Occasional H (None) /hpf 01/19/18 Range/Units 11:31 WBC (3.8-10.6) k/uL RBC (3.80-5.40) m/uL Hgb (11.4-16.0) gm/dL Hct (34.0-46.0) % MCV (80.0-100.0) fL MCH (25.0-35.0) pg MCHC (31.0-37.0) g/dL RDW (11.5-15.5) % Plt Count (150-450) k/uL Neutrophils % % Lymphocytes % % Monocytes % % Eosinophils % % Basophils % % Neutrophils # (1.3-7.7) k/uL Lymphocytes # (1.0-4.8) k/uL Monocytes # (0-1.0) k/uL Eosinophils # (0-0.7) k/uL Basophils # (0-0.2) k/uL Macrocytosis Sodium (137-145) mmol/L Potassium (3.5-5.1) mmol/L Chloride (98-107) mmol/L Carbon Dioxide (22-30) mmol/L Anion Gap mmol/L BUN (7-17) mg/dL Creatinine (0.52-1.04) mg/dL Est GFR (CKD-EPI)AfAm (>60 ml/min/1.73 sqM) Est GFR (CKD-EPI)NonAf (>60 ml/min/1.73 sqM) Glucose (74-99) mg/dL Plasma Lactic Acid Boby 1.6 (0.7-2.0) mmol/L Calcium (8.4-10.2) mg/dL Total Bilirubin (0.2-1.3) mg/dL AST (14-36) U/L ALT (9-52) U/L Alkaline Phosphatase (38-126) U/L Total Protein (6.3-8.2) g/dL Albumin (3.5-5.0) g/dL Amylase (30-110) U/L Lipase (23-300) U/L Urine Color Urine Appearance (Clear) Urine pH (5.0-8.0) Ur Specific [place] (1.001-1.035) Urine Protein (Negative) Urine Glucose (UA) (Negative) Urine Ketones (Negative) Urine Blood (Negative) Urine Nitrite (Negative) Urine Bilirubin (Negative) Urine Urobilinogen (<2.0) mg/dL Ur Leukocyte Esterase (Negative) Urine RBC (0-5) /hpf Urine WBC (0-5) /hpf Ur Squamous Epith Cells (0-4) /hpf Amorphous Sediment (None) /hpf Urine Bacteria (None) /hpf Urine Mucus (None) /hpf Urine Yeast (Budding) (None) /hpf - Radiology Data Radiology results: report reviewed (Chest x-ray and x-ray KUB negative for acute disease or structural, ultrasound gallbladder positive), image reviewed Disposition Clinical Impression: Intractable pain, Metastatic colon cancer in female, Cholecystitis, UTI ( urinary tract infection) Disposition: ADMITTED IP TO THIS [facility] Condition: Fair Is patient prescribed a controlled substance at d/c from ED?: No
[2018-01-19 11:43] LABS: Amorphous Sediment,Urine Rare /hpf; Appearance,Urine Turbid (Clear); Bacteria,Urine Rare /hpf; Bilirubin,Urine 1+ (Negative); Blood,Urine Large (Negative); Budding Yeast,Urine Occasional /hpf; Color,Urine Dark Brown; Glucose,Urine (UA) Negative (Negative); Ketones,Urine Negative (Negative); Leukocyte Esterase,Urine Large (Negative); Mucus,Urine Rare /hpf; Nitrite,Urine Negative (Negative); Protein,Urine 2+ (Negative); RBC,Urine >182 /hpf (0-5); Squamous Epithelial Cell,Urine 2 /hpf (0-4); WBC,Urine >182 /hpf (0-5)
[2018-01-19 11:55] LABS: Basophils % (A) 0 %; Eosinophils % (A) 1 %; HGB 12.4 gm/dL (11.4-16.0); Lymphocytes # (A) 0.3 k/uL (1.0-4.8); Lymphocytes % (A) 8 %; MCHC 31.9 g/dL (31.0-37.0); MCV 100.4 fL (80.0-100.0); Macrocytosis Slight; Mean Platelet Volume 6.9; Monocytes # (A) 0.3 k/uL (0-1.0); Monocytes % (A) 7 %; Neutrophils # (A) 3.4 k/uL (1.3-7.7); Neutrophils % (A) 84 %; Platelet Count 277 k/uL (150-450); RBC 3.88 m/uL (3.80-5.40); RDW 14.4 % (11.5-15.5); WBC 4.1 k/uL (3.8-10.6)
[2018-01-19 11:57] LABS: Albumin 3.4 g/dL (3.5-5.0); Potassium 4.6 mmol/L (3.5-5.1); Total Bilirubin 2.4 mg/dL (0.2-1.3); Total Protein 6.1 g/dL (6.3-8.2)
--- NOTE | 2018-01-19 13:44 | XR ---
EXAMINATION TYPE: XR abdomen acute w cxr , 4 VIEWS DATE OF EXAM ORDERED: 01/19/2018 HISTORY: Abdominal pain, nausea and constipation. COMPARISON: None. FINDINGS: Heart size is normal. The lungs are clear. Pleural spaces are clear. There is a left subcl polo catheter in place. Its tip is in the SVC. There has been previous epigastric surgery. There are bilateral double-J stents in place. There are mildly dilated loops of large and small bowel throughout the abdomen. There is no evidence of obstruction or free air. There are multiple faceted gallstones present. IMPRESSION: 1. NO ACTIVE INTRATHORACIC DISEASE. 2. STATUS POST DOUBLE-J STENT. 3. CHOLELITHIASIS.
--- NOTE | 2018-01-19 14:45 | US ---
EXAMINATION TYPE: US gallbladder DATE OF EXAM: 01/19/2018 COMPARISON: NONE CLINICAL HISTORY: Pain. Abdominal pain, nausea and vomiting today, history of gallstones EXAM MEASUREMENTS: Liver Length: 19.6 cm Gallbladder Wall: 0.6 cm CBD: 0.6 cm Right Kidney: 11.1 x 4.9 x 4.6 cm *Technical limitations due to large amount of overlying bowel content Pancreas: Obscured by bowel gas Liver: enlarged Gallbladder: hydropic, measuring 17.3cm, multiple stones noted, thickened GB wall Evidence for sonographic Arnold's sign: no CBD: appears wnl as visualized Right Kidney: minimally dilated collecting system IMPRESSION: Gallbladder is markedly dilated and measures 6 cm in diameter. There are numerous gallsto carol. Gallbladder measures 17 cm in length. No dilated ducts. No focal liver defect. Appearance is consistent with acute and chronic cholecystitis.
[2018-01-19] MEDS ORDERED: AMPICILLIN-SULBACTAM 3 GM in SODIUM CHLORIDE 0.9% 100 ML IVPB STA (14:54)
[2018-01-19] MEDS ORDERED: HYDROmorphone 1 MG/ML 1 ML SYRINGE IVP PRN (14:59)
[2018-01-19 16:44] VITALS: BMI 38.9
[2018-01-19] MEDS ORDERED: hydrALAZINE HCL 20 MG/ML 1 ML VIAL IVP PRN (17:38)
[2018-01-19] MEDS: DEXTROSE 5%-0.9% NACL 1,000 ML IV SCH (17:46)
[2018-01-19] MEDS ORDERED: DEXAMETHASONE SOD PHOSPHATE 4 MG/ML 1 ML VIAL IV PRN (17:48)
[2018-01-19] MEDS: HYDROmorphone 1 MG/ML 1 ML SYRINGE IVP PRN ×3 (17:57→23:54)
[2018-01-19] MEDS: HEPARIN SODIUM,PORCINE 5,000 UNIT/ML 1 ML VIAL SQ SCH (20:40)
[2018-01-19] MEDS ORDERED: AMPICILLIN-SULBACTAM 3 GM in SODIUM CHLORIDE 0.9% 100 ML IVPB SCH (21:00)
--- NOTE | 2018-01-19 21:02 | P.HPIM ---
History of Present Illness This is a pleasant 67 years old female with past medical history of advanced colon AND on palliative chemotherapy, congestive heart failure, and hearing disorder, hypertension, sleep apnea, osteoarthritis, hypothyroidism, who presents because of abdominal pain. Patient states for about a week she has normal bowel movements through the colostomy which was done and regular in hospital for her tumor, patient states that she has an obstructed bowel so she came to emergency room. Her pain is associated with several bouts of nausea vomiting about 10-12 times today, no blood. Patient is known case of colorectal cancer as per patient and caregiver at bedside and she was followed up with Dr. Scott and get some chemotherapy for short time but then referred to palliative care and pain management basically. She has chronic abdominal pain but over the last week as was getting worse although usually it fluctuates, and pain is located in the lower abdomen right dictating op about 7/10 in severity, compared to 4/10 before. Feels like something chewing her down like ache which is constant. She had some bleeding per rectum before but now came down however she currently complains from bleeding from her bladder, and possible dysuria but wasn't sure. No fever On admission Vitas looks stable. CBC and BMP was unremarkable except for mild hyponatremia at 135. Her liver enzymes and bilirubin are elevated. And UA is with high WBC and RBC is with leukocyte esterase. Gallbladder ultrasound: Dilated gallbladder about 6 cm with multiple gallstones. Abdominal x-ray shows moderately dilated loops of the large and small bowel throughout the abdomen with no evidence of obstruction or free air Review of Systems CONSTITUTIONAL: No fever, no malaise, no fatigue. HEENT: No recent visual problems or hearing problems. Denied any sore throat. CARDIOVASCULAR: No orthopnea, PND, no palpitations, no syncope. PULMONARY: No shortness of breath, no cough, no hemoptysis. GASTROINTESTINAL: No diarrhea, no nausea, no vomiting, no abdominal pain. Normoactive bowel sounds. NEUROLOGICAL: No headaches, no weakness, no numbness. HEMATOLOGICAL: Denies any bleeding or petechiae. GENITOURINARY: Denies any burning micturition, frequency, or urgency. MUSCULOSKELETAL/RHEUMATOLOGICAL: Denies any joint pain, swelling, or any muscle pain. ENDOCRINE: Denies any polyuria or polydipsia. GENERAL: The patient is alert and oriented x3, not in any acute distress. Well developed, well nourished. HEENT: Pupils are round and equally reacting to light. EOMI. No scleral icterus. No conjunctival pallor. Normocephalic, atraumatic. No pharyngeal erythema. No thyromegaly. CARDIOVASCULAR: S1 and S2 present. No murmurs, rubs, or gallops. PULMONARY: Chest is clear to auscultation, no wheezing or crackles. ABDOMEN: Soft, nontender, nondistended, normoactive bowel sounds. No palpable organomegaly. MUSCULOSKELETAL: No joint swelling or deformity. EXTREMITIES: No cyanosis, clubbing, or pedal edema. NEUROLOGICAL: Gross neurological examination did not reveal any focal deficits. SKIN: No rashes. Labs and medication were reviewed.. Continue same treatment. Continue with symptomatic treatment. Resume home medication. Monitor lytes and vitals. DVT and GI prophylaxis. Further recommendations of the clinical course of the patient DVT prophylaxis: Subcutaneous heparin GI Prophylaxis: Pepcid PT/OT: Pending Prognosis is guarded Past Medical History Past Medical History: Blood Disorder, Cancer, Heart Failure, Hearing Disorder / Deafness, Hypertension, Osteoarthritis (OA), Sleep Apnea/CPAP/BIPAP, Thyroid Disorder Additional Past Medical History / Comment(s): Pt stated that she has enlarged heart and two leaky valves. ENDOMETRIAL AND COLON CANCER. History of Any Multi-Drug Resistant Organisms: None Reported Past Surgical History: Bariatric Surgery, Bladder Surgery, Bowel Resection, Hernia Repair, Hysterectomy, Tonsillectomy, Tubal Ligation Additional Past Surgical History / Comment(s): Gastric Stapling 1978, pilonidal cyst removed pain associated with knees. D&C, URSZULA-EN-Y,SUBTOTAL GASTRECTOMY, EGD. 2 URINARY STENTS. COLOSTOMY. Past Anesthesia/Blood Transfusion Reactions: Motion Sickness Past Psychological History: Anxiety, Depression Smoking Status: Never smoker Past Alcohol Use History: None Reported Past Drug Use History: None Reported - Past Family History Mother Family Medical History: Neurologic Disorder Additional Family Medical History / Comment(s): PACEMAKER, PARKINSONS Father Family Medical History: Myocardial Infarction ([place]) Additional Family Medical History / Comment(s): AFTER HAVING HIS 3RD [place] Medications and Allergies Home Medications Medication Instructions Recorded Confirmed Type RX: Levothyroxine Sodium 150 mcg PO DAILY 11/26/14 01/19/18 History [Synthroid] Citalopram Hydrobromide [CeleXA] 40 mg PO DAILY 12/09/16 01/19/18 History Multivitamins, Thera [Multivitamin 1 tab PO DAILY 12/09/16 01/19/18 History (formulary)] Acetaminophen [Tylenol Arthritis] 650 mg PO BID 01/13/18 01/19/18 History Diltiazem Cd [Cardizem CD] 120 mg PO DAILY PRN MDD OVER 120 01/13/18 01/19/18 History Ergocalciferol (Vitamin D2) 50,000 unit PO MO 01/13/18 01/19/18 History [Drisdol] Ibuprofen [Motrin] 800 mg PO TID PRN 01/13/18 01/19/18 History L.acidoph,Paracasei, B.lactis 1 cap PO DAILY 01/13/18 01/19/18 History [Probiotic] RX: Omeprazole 20 mg PO DAILY 01/13/18 01/19/18 History SILVER sulfADIAZINE Cream 1 applic TOPICAL DAILY PRN 01/13/18 01/19/18 History [Silvadene 1% Cream] Sulfamethoxazole/Trimethoprim 1 tab PO BID 01/13/18 01/19/18 History [Bactrim DS 800-160 mg] Cyanocobalamin [Vitamin B-12 1,000 mcg SQ QMONTH 01/19/18 01/19/18 History Injection] Dexamethasone [Decadron] 2 mg PO BID 01/19/18 01/19/18 History Furosemide [Lasix] 20 mg PO DAILY PRN 01/19/18 01/19/18 History Methocarbamol [Robaxin] 750 mg PO BID PRN 01/19/18 01/19/18 History Potassium Chloride ER [K-Dur 10] 10 meq PO DAILY PRN 01/19/18 01/19/18 History RX: fentaNYL 100MCG/HR PATCH 1 patch TRANSDERM Q72H 01/19/18 01/19/18 History [Duragesic 100MCG/HR] RX: oxyCODONE HCL 15 mg PO Q4H PRN 01/19/18 01/19/18 History fentaNYL 50MCG/HR PATCH [Duragesic 1 patch TRANSDERM Q72H 01/19/18 01/19/18 History 50MCG/HR] Allergies Allergy/AdvReac Type Severity Reaction Status Date / Time No Known Allergies Allergy Verified 01/19/18 15:08 Physical Exam Vitals: Vital Signs Temp Pulse Resp BP Pulse Ox 01/19/18 14:20 74 18 144/87 99 01/19/18 10:18 98.1 F 92 18 132/83 96 Intake and Output 01/19/18 01/19/18 01/19/18 06:59 14:59 22:59 Other: Weight 99.79 kg Results CBC & Chem 7: 01/19/18 11:31 01/19/18 11:31 Labs: Abnormal Lab Results - Last 24 Hours (Table) 01/19/18 01/19/18 01/19/18 Range/Units 10:51 11:31 11:31 MCV 100.4 H (80.0-100.0) fL Lymphocytes # 0.3 L (1.0-4.8) k/uL Sodium 135 L (137-145) mmol/L BUN 29 H (7-17) mg/dL Glucose 123 H (74-99) mg/dL Total Bilirubin 2.4 H (0.2-1.3) mg/dL AST 526 H (14-36) U/L ALT 358 H (9-52) U/L Alkaline Phosphatase 421 H (38-126) U/L Total Protein 6.1 L (6.3-8.2) g/dL Albumin 3.4 L (3.5-5.0) g/dL Urine Appearance Turbid H (Clear) Urine Protein 2+ H (Negative) Urine Blood Large H (Negative) Urine Bilirubin 1+ H (Negative) Ur Leukocyte Esterase Large H (Negative) Urine RBC >182 H (0-5) /hpf Urine WBC >182 H (0-5) /hpf Amorphous Sediment Rare H (None) /hpf Urine Bacteria Rare H (None) /hpf Urine Mucus Rare H (None) /hpf Urine Yeast (Budding) Occasional H (None) /hpf Assessment and Plan Assessment: Abdominal pain, rule out bowel obstruction or ileus vs gallstone disease Possible acute cholecystitis with gallstone disease Possible urinary tract infection Possible intestinal ileus Colorectal cancer, patient on palliative care with pain management. Status post right abdominal colostomy History of congestive heart failure Essential hypertension Hypothyroidism Plan: this is a pleasant 67 yo F who presents with acute abdomen possible GB disease or acute cholecyctitis and UTI , continue with antibiotics and call surgical consult. continue with the same treatment , continue with symptomatic treatment , resume home medication , monitor lytes and vitals including glucose , c/w iv fluids, cardiology consult is appreciated. infectious disease consult is appreciated . c /w same antibioitc . GI and DVT prophylaxis , further recommendation based upon pt clinical course and progress DVT prophylaxis subcutaneous heparin GI prophylaxis Pepcid PT/OT: pending Prognosis is guarded
[2018-01-20] MEDS: HYDROmorphone 1 MG/ML 1 ML SYRINGE IVP PRN ×7 (03:59→23:04)
[2018-01-20 07:07] VITALS: RESP 16
[2018-01-20] MEDS: PANTOPRAZOLE 40 MG/10 ML VIAL IVP SCH (08:20)
[2018-01-20] MEDS: HEPARIN SODIUM,PORCINE 5,000 UNIT/ML 1 ML VIAL SQ SCH ×2 (08:20→21:00)
[2018-01-20 08:35] LABS: Basophils % (A) 0 %; Eosinophils % (A) 1 %; HCT 34.9 % (34.0-46.0); HGB 10.9 gm/dL (11.4-16.0); Lymphocytes # (A) 0.5 k/uL (1.0-4.8); Lymphocytes % (A) 15 %; MCH 31.3 pg (25.0-35.0); MCHC 31.2 g/dL (31.0-37.0); MCV 100.3 fL (80.0-100.0); Macrocytosis Slight; Mean Platelet Volume 6.6; Monocytes # (A) 0.3 k/uL (0-1.0); Monocytes % (A) 8 %; Neutrophils # (A) 2.6 k/uL (1.3-7.7); Neutrophils % (A) 73 %; Platelet Count 262 k/uL (150-450); RBC 3.48 m/uL (3.80-5.40); RDW 14.3 % (11.5-15.5); WBC 3.6 k/uL (3.8-10.6)
[2018-01-20] MEDS ORDERED: ENOXAPARIN 40 MG/0.4 ML SYRINGE SQ SCH (09:00)
[2018-01-20] MEDS ORDERED: FUROSEMIDE 10 MG/ML 2 ML VIAL IV SCH (09:00)
[2018-01-20 09:11] LABS: ALT 312 U/L (9-52); AST 377 U/L (14-36); Albumin 2.8 g/dL (3.5-5.0); Alkaline Phosphatase 367 U/L (38-126); Anion Gap 4 mmol/L; Blood Urea Nitrogen 22 mg/dL (7-17); Calcium 8.6 mg/dL (8.4-10.2); Carbon Dioxide 26 mmol/L (22-30); Chloride 107 mmol/L (98-107); Glucose 110 mg/dL (74-99); Potassium 4.5 mmol/L (3.5-5.1); Sodium 137 mmol/L (137-145); Total Bilirubin 1.7 mg/dL (0.2-1.3); Total Protein 5.4 g/dL (6.3-8.2)
--- NOTE | 2018-01-20 10:50 | P.PN ---
Subjective This is a pleasant 67 years old female with past medical history of advanced colon AND on palliative chemotherapy, congestive heart failure, and hearing disorder, hypertension, sleep apnea, osteoarthritis, hypothyroidism, who presents because of abdominal pain. Patient states for about a week she has normal bowel movements through the colostomy which was done and regular in hospital for her tumor, patient states that she has an obstructed bowel so she came to emergency room. Her pain is associated with several bouts of nausea vomiting about 10-12 times today, no blood. Patient is known case of colorectal cancer as per patient and caregiver at bedside and she was followed up with Dr. Scott and get some chemotherapy for short time but then referred to palliative care and pain management basically. She has chronic abdominal pain but over the last week as was getting worse although usually it fluctuates, and pain is located in the lower abdomen right dictating op about 7/10 in severity, compared to 4/10 before. Feels like something chewing her down like ache which is constant. She had some bleeding per rectum before but now came down however she currently complains from bleeding from her bladder, and possible dysuria but wasn't sure. No fever On admission Vitas looks stable. CBC and BMP was unremarkable except for mild hyponatremia at 135. Her liver enzymes and bilirubin are elevated. And UA is with high WBC and RBC is with leukocyte esterase. Gallbladder ultrasound: Dilated gallbladder about 6 cm with multiple gallstones. Abdominal x-ray shows moderately dilated loops of the large and small bowel throughout the abdomen with no evidence of obstruction or free air 01/20/2018 Patient states that her abdominal pain is improved but her after she is getting IV opioids and Dilaudid. No more nausea vomiting. However she still have empty colostomy bag Vitas looks stable. Her liver enzymes and bilirubin are trending down. Surgical and GI consults are called.Gallbladder ultrasound: Dilated gallbladder about 6 cm with multiple gallstones. Abdominal x-ray shows moderately dilated loops of the large and small bowel throughout the abdomen with no evidence of obstruction or free air Objective - Vital Signs Vital signs: Vital Signs Temp 97.9 F 01/20/18 07:00 Pulse 75 01/20/18 07:00 Resp 16 01/20/18 07:00 BP 116/71 01/20/18 07:00 Pulse Ox 96 01/20/18 07:00 Intake & Output 01/19/18 01/20/18 01/20/18 18:59 06:59 18:59 Output Total 200 Balance -200 Weight 99.79 kg Output: Urine 200 Other: # Voids 2 - Exam Physical exam, date of service 01/19/2018 GENERAL: The patient is alert and oriented x3, not in any acute distress. Well developed, well nourished. HEENT: Pupils are round and equally reacting to light. EOMI. No scleral icterus. No conjunctival pallor. Normocephalic, atraumatic. No pharyngeal erythema. No thyromegaly. CARDIOVASCULAR: S1 and S2 present. No murmurs, rubs, or gallops. PULMONARY: Chest is clear to auscultation, no wheezing or crackles. -ABDOMEN: distended, generalized tenderness, no rebound tenderness, colostomy back on the left side and is empty. No palpable organomegaly. MUSCULOSKELETAL: No joint swelling or deformity. EXTREMITIES: No cyanosis, clubbing, or pedal edema. NEUROLOGICAL: Gross neurological examination did not reveal any focal deficits. SKIN: No rashes. - Labs CBC & Chem 7: 01/20/18 08:03 01/20/18 08:03 Labs: Abnormal Lab Results - Last 24 Hours (Table) 01/19/18 01/19/18 01/19/18 Range/Units 10:51 11:31 11:31 WBC (3.8-10.6) k/uL RBC (3.80-5.40) m/uL Hgb (11.4-16.0) gm/dL MCV 100.4 H (80.0-100.0) fL Lymphocytes # 0.3 L (1.0-4.8) k/uL Sodium 135 L (137-145) mmol/L BUN 29 H (7-17) mg/dL Glucose 123 H (74-99) mg/dL Total Bilirubin 2.4 H (0.2-1.3) mg/dL AST 526 H (14-36) U/L ALT 358 H (9-52) U/L Alkaline Phosphatase 421 H (38-126) U/L Total Protein 6.1 L (6.3-8.2) g/dL Albumin 3.4 L (3.5-5.0) g/dL Urine Appearance Turbid H (Clear) Urine Protein 2+ H (Negative) Urine Blood Large H (Negative) Urine Bilirubin 1+ H (Negative) Ur Leukocyte Esterase Large H (Negative) Urine RBC >182 H (0-5) /hpf Urine WBC >182 H (0-5) /hpf Amorphous Sediment Rare H (None) /hpf Urine Bacteria Rare H (None) /hpf Urine Mucus Rare H (None) /hpf Urine Yeast (Budding) Occasional H (None) /hpf 01/20/18 01/20/18 Range/Units 08:03 08:03 WBC 3.6 L (3.8-10.6) k/uL RBC 3.48 L (3.80-5.40) m/uL Hgb 10.9 L (11.4-16.0) gm/dL MCV 100.3 H (80.0-100.0) fL Lymphocytes # 0.5 L (1.0-4.8) k/uL Sodium (137-145) mmol/L BUN 22 H (7-17) mg/dL Glucose 110 H (74-99) mg/dL Total Bilirubin 1.7 H (0.2-1.3) mg/dL AST 377 H (14-36) U/L ALT 312 H (9-52) U/L Alkaline Phosphatase 367 H (38-126) U/L Total Protein 5.4 L (6.3-8.2) g/dL Albumin 2.8 L (3.5-5.0) g/dL Urine Appearance (Clear) Urine Protein (Negative) Urine Blood (Negative) Urine Bilirubin (Negative) Ur Leukocyte Esterase (Negative) Urine RBC (0-5) /hpf Urine WBC (0-5) /hpf Amorphous Sediment (None) /hpf Urine Bacteria (None) /hpf Urine Mucus (None) /hpf Urine Yeast (Budding) (None) /hpf Microbiology - Last 24 Hours (Table) 01/19/18 17:05 Urine Culture - Preliminary Urine,Voided 01/19/18 10:51 Urine Culture - Preliminary Urine,Voided Assessment and Plan Assessment: Abdominal pain, rule out bowel obstruction or ileus vs gallstone disease Possible acute cholecystitis with gallstone disease Possible urinary tract infection Possible intestinal ileus Colorectal cancer, patient on palliative care with pain management. Status post right abdominal colostomy History of congestive heart failure Essential hypertension Hypothyroidism Plan: this is a pleasant 67 yo F who presents with acute abdomen possible GB disease or acute cholecyctitis and UTI , continue with antibiotics and call surgical consult. continue with the same treatment , continue with symptomatic treatment , resume home medication , monitor lytes and vitals including glucose , c/w iv fluids, cardiology consult is appreciated. infectious disease consult is appreciated . c /w same antibioitc . GI and DVT prophylaxis , further recommendation based upon pt clinical course and progress DVT prophylaxis subcutaneous heparin GI prophylaxis Pepcid Prognosis is guarded
[2018-01-20] MEDS: DEXTROSE 5%-0.9% NACL 1,000 ML IV SCH (13:08)
[2018-01-20] MEDS ORDERED: IOPAMIDOL-300 CONTRAST 30 ML VIAL (ORAL USE) PO PRN (14:14)
--- NOTE | 2018-01-20 15:13 | P.GSCN ---
History of Present Illness Consult date: 01/20/18 History of present illness: This is a 67-year-old female with a very complex past medical and surgical history as detailed in previous notes. She has had Michael-en-Y gastric bypass she 's had hysterectomy and an APR secondary to ovarian cancer and colorectal cancer. She hasn't and ostomy. She within the last year also had a major abdominal wall reconstruction with mesh. Secondary to a large hernia. She states that she has not had any stool out of her ostomy for 7 days. She does take multiple opioids at home due to pain in her metastatic cancer. She was also found to have hyperbilirubinemia and elevated liver enzymes. She has multiple gallstones. The gallbladder is distended but there is no pericholecystic fluid or wall thickening to indicate acute cholecystitis on ultrasound. She's not complaining of right upper quadrant pain she has no fevers or chills she did have some nausea and bilious emesis yesterday. Past Medical History Past Medical History: Blood Disorder, Cancer, Heart Failure, Hearing Disorder / Deafness, Hypertension, Osteoarthritis (OA), Sleep Apnea/CPAP/BIPAP, Thyroid Disorder Additional Past Medical History / Comment(s): Pt stated that she has enlarged heart and two leaky valves. ENDOMETRIAL AND COLON CANCER. History of Any Multi-Drug Resistant Organisms: None Reported Past Surgical History: Bariatric Surgery, Bladder Surgery, Bowel Resection, Hernia Repair, Hysterectomy, Tonsillectomy, Tubal Ligation Additional Past Surgical History / Comment(s): Gastric Stapling 1978, pilonidal cyst removed pain associated with knees. D&C, MICHAEL-EN-Y,SUBTOTAL GASTRECTOMY, EGD. 2 URINARY STENTS. COLOSTOMY. Past Anesthesia/Blood Transfusion Reactions: Motion Sickness Past Psychological History: Anxiety, Depression Smoking Status: Never smoker Past Alcohol Use History: None Reported Past Drug Use History: None Reported - Past Family History Mother Family Medical History: Neurologic Disorder Additional Family Medical History / Comment(s): PACEMAKER, [place] Father Family Medical History: Myocardial Infarction (AR) Additional Family Medical History / Comment(s): AFTER HAVING HIS 3RD AR Medications and Allergies Home Medications Medication Instructions Recorded Confirmed Type Levothyroxine Sodium [Synthroid] 150 mcg PO DAILY 11/26/14 01/19/18 History Citalopram Hydrobromide [CeleXA] 40 mg PO DAILY 12/09/16 01/19/18 History Multivitamins, Thera [Multivitamin 1 tab PO DAILY 12/09/16 01/19/18 History (formulary)] Acetaminophen [Tylenol Arthritis] 650 mg PO BID 01/13/18 01/19/18 History Diltiazem Cd [Cardizem CD] 120 mg PO DAILY PRN MDD OVER 120 01/13/18 01/19/18 History Ergocalciferol (Vitamin D2) 50,000 unit PO MO 01/13/18 01/19/18 History [Drisdol] Ibuprofen [Motrin] 800 mg PO TID PRN 01/13/18 01/19/18 History L.acidoph,Paracasei, B.lactis 1 cap PO DAILY 01/13/18 01/19/18 History [Probiotic] Omeprazole 20 mg PO DAILY 01/13/18 01/19/18 History SILVER sulfADIAZINE Cream 1 applic TOPICAL DAILY PRN 01/13/18 01/19/18 History [Silvadene 1% Cream] Sulfamethoxazole/Trimethoprim 1 tab PO BID 01/13/18 01/19/18 History [Bactrim DS 800-160 mg] Cyanocobalamin [Vitamin B-12 1,000 mcg SQ QMONTH 01/19/18 01/19/18 History Injection] Dexamethasone [Decadron] 2 mg PO BID 01/19/18 01/19/18 History Furosemide [Lasix] 20 mg PO DAILY PRN 01/19/18 01/19/18 History Methocarbamol [Robaxin] 750 mg PO BID PRN 01/19/18 01/19/18 History Potassium Chloride ER [K-Dur 10] 10 meq PO DAILY PRN 01/19/18 01/19/18 History fentaNYL 100MCG/HR PATCH 1 patch TRANSDERM Q72H 01/19/18 01/19/18 History [Duragesic 100MCG/HR] fentaNYL 50MCG/HR PATCH [Duragesic 1 patch TRANSDERM Q72H 01/19/18 01/19/18 History 50MCG/HR] oxyCODONE HCL 15 mg PO Q4H PRN 01/19/18 01/19/18 History Allergies Allergy/AdvReac Type Severity Reaction Status Date / Time No Known Allergies Allergy Verified 01/19/18 15:08 Surgical - Exam Osteopathic Statement: *. No significant issues noted on an osteopathic structural exam other than those noted in the History and Physical/Consult. Vital Signs Temp Pulse Resp BP Pulse Ox 98.1 F 92 18 132/83 96 01/19/18 10:18 01/19/18 10:18 01/19/18 10:18 01/19/18 10:18 01/19/18 10:18 - General no distress, chronically ill - Eyes PERRL - Neck trachea midline - Respiratory normal expansion, normal respiratory effort - Cardiovascular Rhythm: regular - Abdomen Ostomy is pink and patent digital exam revealed no obstruction down to the fascia and hard stool. Abdomen: soft, non tender - Neurologic normal coordination, normal sensation - Psychiatric oriented to time, oriented to person, oriented to place Results - Labs 01/20/18 08:03 01/20/18 08:03 Abnormal Lab Results - Last 24 Hours (Table) 01/20/18 01/20/18 Range/Units 08:03 08:03 WBC 3.6 L (3.8-10.6) k/uL RBC 3.48 L (3.80-5.40) m/uL Hgb 10.9 L (11.4-16.0) gm/dL MCV 100.3 H (80.0-100.0) fL Lymphocytes # 0.5 L (1.0-4.8) k/uL BUN 22 H (7-17) mg/dL Glucose 110 H (74-99) mg/dL Total Bilirubin 1.7 H (0.2-1.3) mg/dL AST 377 H (14-36) U/L ALT 312 H (9-52) U/L Alkaline Phosphatase 367 H (38-126) U/L Total Protein 5.4 L (6.3-8.2) g/dL Albumin 2.8 L (3.5-5.0) g/dL Microbiology - Last 24 Hours (Table) 01/19/18 10:51 Urine Culture - Preliminary Urine,Voided Yeast species 01/19/18 17:05 Urine Culture - Preliminary Urine,Voided Diabetes panel 01/20/18 Range/Units 08:03 Sodium 137 (137-145) mmol/L Potassium 4.5 (3.5-5.1) mmol/L Chloride 107 (98-107) mmol/L Carbon Dioxide 26 (22-30) mmol/L BUN 22 H (7-17) mg/dL Creatinine 0.78 (0.52-1.04) mg/dL Glucose 110 H (74-99) mg/dL Calcium 8.6 (8.4-10.2) mg/dL AST 377 H (14-36) U/L ALT 312 H (9-52) U/L Alkaline Phosphatase 367 H (38-126) U/L Total Protein 5.4 L (6.3-8.2) g/dL Albumin 2.8 L (3.5-5.0) g/dL Calcium panel 01/20/18 Range/Units 08:03 Calcium 8.6 (8.4-10.2) mg/dL Albumin 2.8 L (3.5-5.0) g/dL Pituitary panel 01/20/18 Range/Units 08:03 Sodium 137 (137-145) mmol/L Potassium 4.5 (3.5-5.1) mmol/L Chloride 107 (98-107) mmol/L Carbon Dioxide 26 (22-30) mmol/L BUN 22 H (7-17) mg/dL Creatinine 0.78 (0.52-1.04) mg/dL Glucose 110 H (74-99) mg/dL Calcium 8.6 (8.4-10.2) mg/dL Adrenal panel 01/20/18 Range/Units 08:03 Sodium 137 (137-145) mmol/L Potassium 4.5 (3.5-5.1) mmol/L Chloride 107 (98-107) mmol/L Carbon Dioxide 26 (22-30) mmol/L BUN 22 H (7-17) mg/dL Creatinine 0.78 (0.52-1.04) mg/dL Glucose 110 H (74-99) mg/dL Calcium 8.6 (8.4-10.2) mg/dL Total Bilirubin 1.7 H (0.2-1.3) mg/dL AST 377 H (14-36) U/L ALT 312 H (9-52) U/L Alkaline Phosphatase 367 H (38-126) U/L Total Protein 5.4 L (6.3-8.2) g/dL Albumin 2.8 L (3.5-5.0) g/dL Assessment and Plan Assessment: It appears the patient has 2 different issues going on. She has what appears to be opioid-induced constipation, she also has hyperbilirubinemia and elevated liver enzymes Plan: Given the patient's complex medical and surgical history she is a very poor surgical candidate at this time. I recommend mag citrate and enemas through the ostomy to relieve the opioid-induced constipation. I also recommend computed tomography scan of the abdomen and pelvis to further evaluate for possible metastatic spread and rule out internal hernia secondary to her history of Michael-en-Y gastric bypass. She does not have signs and symptoms consistent with acute cholecystitis at this time there is no pericholecystic fluid she does have multiple gallstones which have been present on previous imaging as well. Further recommendations to follow
--- NOTE | 2018-01-20 18:35 | CT ---
EXAMINATION TYPE: CT abdomen pelvis w con DATE OF EXAM: 01/20/2018 COMPARISON: Prior CT 08/28/2017 HISTORY: Abdominal pain, no colostomy output x [address] DLP: 1168.2 mGycm Automated exposure control for dose reduction was used. TECHNIQUE: Helical acquisition of images from the lung bases through the pelvis have been completed. CONTRAST: Performed with Oral Contrast and with IV Contrast, patient injected with 100 mL of Isovue 300. FINDINGS: LUNG BASES: No significant abnormality is appreciated. AORTA: No significant abnormality is appreciated. LIVER/GB: There is a distended gallbladder with luminal stones. Mild central biliary ductal dilation is present PANCREAS: No significant abnormality is seen. SPLEEN: No significant abnormality is seen. ADRENALS: No significant abnormality is seen. KIDNEYS: Double-J ureteral stents are present bilaterally. REPRODUCTIVE ORGANS: Not seen BOWEL: Markedly distended small bowel loops are present proximally. At the level of the stoma in the left lower quadrant there is a caliber change present. Contrast is not coursed distally, there is a fluid-filled stomach present, postop changes are present to the proximal aspect of the stomach. Contr ast present in bowel loops in the right lower quadrant, possibly secondary circuit. There are some de compressed loops of bowel in the pelvis. FREE AIR: No Free Air visible. ASCITES: None visible. PELVIC ADENOPATHY: None visualized. RETROPERITONEAL ADENOPATHY: No Retroperitoneal Adenopathy visible. URINARY BLADDER: No significant abnormality is seen. Cystic lesion anterior to the bladder is again noted as on prior exam but now measures approximately 6 cm where as on previous the lesion measured 4 .3 cm. OSSEOUS STRUCTURES: No significant abnormality is seen. IMPRESSION: FINDINGS SUGGEST BOWEL OBSTRUCTION POSSIBLY AT THE LEVEL OF PATIENT'S STOMA. CORRELATE WITH PATIENT'S SURGICAL HISTORY FOR APPROPRIATE ANATOMY. INTERVAL GROWTH OF CYSTIC FOCUS ANTERIOR TO THE URINARY BL ADDER. Additional findings above.
--- NOTE | 2018-01-20 20:05 | P.CONS ---
History of Present Illness - Reason for Consult Consult date: 01/20/18 Abdominal pain, Decreased output per ostomy Requesting physician: Jose Miguel E Sheet - Chief Complaint Abdominal pain and decreased output per ostomy - History of Present Illness The patient is a pleasant 67-year-old female with a complex medical history including congestive heart failure, SWEETIE, hypertension, osteoarthritis, hypertension and both: And ovarian cancer status post extensive surgery with subsequent revisions including APR with colostomy formation. The patient is on opioid therapy at home for pain control as well as a bowel regimen. History was taken from the patient and her caregiver who is sitting bedside. The patient began having decreased output from her ostomy on Saturday after they reports she had a large amount of output. There is been no bleeding from the site and no output at all. She has had associated pain which is diffuse across the abdomen in association with the decreased output. They report a delayed coming to the hospital as a were trying to increase laxative therapy in order to treat the problem at home, however there is no resolution in the decided to come to the emergency department for further evaluation. She had episodes of nausea and vomiting prior to presentation but has had nothing since presentation. Currently she is seen sitting comfortably in bed denying any fevers or chills. Review of Systems REVIEW OF SYSTEMS: CARDIO: Denies any chest pain or palpitations. PULMONARY: Denies any shortness of breath or wheezing. GENITOURINARY: Patient reports hematuria which is frequent since her surgery. MUSCULOSKELETAL: No weakness reported. SKIN: Denies any new rashes or lesions, jaundice or pallor. PSYCHIATRIC: Medical history significant for depression or anxiety. NEUROLOGY: Denies headache, denies any new focal deficits. EARS: No tinnitus, discharge or new hearing loss. NOSE: No discharge or congestion. EYES: No pain in eyes or change in vision. CONSTITUTIONAL: No recent weight loss. No fever, chills, night sweats. Past Medical History Past Medical History: Blood Disorder, Cancer, Heart Failure, Hearing Disorder / Deafness, Hypertension, Osteoarthritis (OA), Sleep Apnea/CPAP/BIPAP, Thyroid Disorder Additional Past Medical History / Comment(s): Pt stated that she has enlarged heart and two leaky valves. ENDOMETRIAL AND COLON CANCER. History of Any Multi-Drug Resistant Organisms: None Reported Past Surgical History: Bariatric Surgery, Bladder Surgery, Bowel Resection, Hernia Repair, Hysterectomy, Tonsillectomy, Tubal Ligation Additional Past Surgical History / Comment(s): Gastric Stapling 1978, pilonidal cyst removed pain associated with knees. D&C, URSZULA-EN-Y,SUBTOTAL GASTRECTOMY, EGD. 2 URINARY STENTS. COLOSTOMY. Past Anesthesia/Blood Transfusion Reactions: Motion Sickness Past Psychological History: Anxiety, Depression Smoking Status: Never smoker Past Alcohol Use History: None Reported Past Drug Use History: None Reported - Past Family History Mother Family Medical History: Neurologic Disorder Additional Family Medical History / Comment(s): PACEMAKER, PARKINSONS Father Family Medical History: Myocardial Infarction ([place]) Additional Family Medical History / Comment(s): AFTER HAVING HIS 3RD [place] Medications and Allergies Home Medications Medication Instructions Recorded Confirmed Type Levothyroxine Sodium [Synthroid] 150 mcg PO DAILY 11/26/14 01/19/18 History Citalopram Hydrobromide [CeleXA] 40 mg PO DAILY 12/09/16 01/19/18 History Multivitamins, Thera [Multivitamin 1 tab PO DAILY 12/09/16 01/19/18 History (formulary)] Acetaminophen [Tylenol Arthritis] 650 mg PO BID 01/13/18 01/19/18 History Diltiazem Cd [Cardizem CD] 120 mg PO DAILY PRN MDD OVER 120 01/13/18 01/19/18 History Ergocalciferol (Vitamin D2) 50,000 unit PO MO 01/13/18 01/19/18 History [Drisdol] Ibuprofen [Motrin] 800 mg PO TID PRN 01/13/18 01/19/18 History L.acidoph,Paracasei, B.lactis 1 cap PO DAILY 01/13/18 01/19/18 History [Probiotic] Omeprazole 20 mg PO DAILY 01/13/18 01/19/18 History SILVER sulfADIAZINE Cream 1 applic TOPICAL DAILY PRN 01/13/18 01/19/18 History [Silvadene 1% Cream] Sulfamethoxazole/Trimethoprim 1 tab PO BID 01/13/18 01/19/18 History [Bactrim DS 800-160 mg] Cyanocobalamin [Vitamin B-12 1,000 mcg SQ QMONTH 01/19/18 01/19/18 History Injection] Dexamethasone [Decadron] 2 mg PO BID 01/19/18 01/19/18 History Furosemide [Lasix] 20 mg PO DAILY PRN 01/19/18 01/19/18 History Methocarbamol [Robaxin] 750 mg PO BID PRN 01/19/18 01/19/18 History Potassium Chloride ER [K-Dur 10] 10 meq PO DAILY PRN 01/19/18 01/19/18 History fentaNYL 100MCG/HR PATCH 1 patch TRANSDERM Q72H 01/19/18 01/19/18 History [Duragesic 100MCG/HR] fentaNYL 50MCG/HR PATCH [Duragesic 1 patch TRANSDERM Q72H 01/19/18 01/19/18 History 50MCG/HR] oxyCODONE HCL 15 mg PO Q4H PRN 01/19/18 01/19/18 History Allergies Allergy/AdvReac Type Severity Reaction Status Date / Time No Known Allergies Allergy Verified 01/19/18 15:08 Physical Exam Vitals: Vital Signs Temp Pulse Resp BP Pulse Ox 01/20/18 17:45 98.4 F 84 110/73 94 L 01/20/18 07:00 97.9 F 75 16 116/71 96 01/20/18 00:07 98 F 80 18 119/77 95 01/19/18 19:49 98.2 F 80 18 119/76 96 Intake and Output 01/20/18 01/20/18 01/20/18 06:59 14:59 22:59 Intake Total 400 Output Total 200 Balance 400 -200 Intake: Intake, IV Titration 400 Amount Dextrose 5%-0.9% NaCl 1, 400 000 ml @ 50 mls/hr IV . Q20H [facility] Rx#:[id number] Output: Urine 200 Other: # Voids 2 3 3 On physical examination, patient appears comfortable in no apparent distress. HEAD: Normocephalic, atraumatic. EYES: No scleral icterus. No conjunctival injection. MOUTH: No lesions, tongue midline, mucous membranes appear dry. NECK: Trachea midline, no gross abnormalities. CHEST: Clear to auscultation with no wheezing or rhonchi appreciated. HEART: Regular rate and rhythm. ABDOMEN: Soft, ostomy with no output noted, surgical scars well-healed. Bowel sounds are positive. No organomegaly. No guarding or rigidity. EXTREMITIES: No pedal edema. SKIN: No rashes, no jaundice. NEUROLOGIC: Alert and oriented x3. No focal deficits. Results CBC & Chem 7: 01/20/18 08:03 01/20/18 08:03 Labs: Abnormal Lab Results - Last 24 Hours (Table) 01/20/18 01/20/18 Range/Units 08:03 08:03 WBC 3.6 L (3.8-10.6) k/uL RBC 3.48 L (3.80-5.40) m/uL Hgb 10.9 L (11.4-16.0) gm/dL MCV 100.3 H (80.0-100.0) fL Lymphocytes # 0.5 L (1.0-4.8) k/uL BUN 22 H (7-17) mg/dL Glucose 110 H (74-99) mg/dL Total Bilirubin 1.7 H (0.2-1.3) mg/dL AST 377 H (14-36) U/L ALT 312 H (9-52) U/L Alkaline Phosphatase 367 H (38-126) U/L Total Protein 5.4 L (6.3-8.2) g/dL Albumin 2.8 L (3.5-5.0) g/dL Microbiology - Last 24 Hours (Table) 01/19/18 10:51 Urine Culture - Preliminary Urine,Voided Yeast species 01/19/18 17:05 Urine Culture - Preliminary Urine,Voided US - abdomen: report reviewed (Ultrasound of the abdomen showing a markedly dilated gallbladder with no dilated ducts noted or no focal liver defects seen. Sonographic Arnold sign was negative.) Assessment and Plan (1) Bowel obstruction Narrative/Plan: Patient with complicated oncologic history including colorectal and ovarian cancer status post extensive surgeries in the past including an APR with ostomy formation. She presents with almost 1 week of no output from the ostomy. Computed tomography scan is suggestive of a bowel obstruction at the level of the ostomy. Currently she is being treated with enemas through the ostomy. Unclear if presentation is secondary to severe constipation in the setting of opioid use, progressive disease or other cause. Current Visit: Yes Status: Acute Code(s): K56.609 - UNSP INTESTNL OBST, UNSP TO PARTIAL VERSUS COMPLETE OBST SNOMED Code(s): 61927623 (2) Elevated liver enzymes Narrative/Plan: Unclear etiology, no liver metastases seen on CT, however this does not exclude parenchymal metastases which are not visible on imaging. Patient also had a distended gallbladder with gallstones on imaging with no biliary dilation noted on ultrasound and mild intrahepatic dilation on CT. No evidence of choledocholithiasis. Current Visit: Yes Status: Acute Code(s): R74.8 - ABNORMAL LEVELS OF OTHER SERUM ENZYMES SNOMED Code(s): 219587960 (3) Intractable pain Narrative/Plan: Secondary to above. Current Visit: Yes Status: Acute Code(s): R52 - PAIN, UNSPECIFIED SNOMED Code(s): 59812297 (4) Metastatic colon cancer in female Current Visit: Yes Status: Acute Code(s): C18.9 - MALIGNANT NEOPLASM OF COLON, UNSPECIFIED SNOMED Code(s): 577791956 Plan: Supportive care Fluid hydration Nothing by mouth Case discussed with surgical service, appreciate the recommendations Trial of enemas through ostomy Continue to monitor liver enzymes Choledocholithiasis is unlikely given findings on ultrasound and CT, no need for ERCP at this time Continue antibiotic therapy Thank you for allowing us to participate in the care of this patient we will continue to follow
[2018-01-20] MEDS ORDERED: SODIUM CHLORIDE 0.9% 1,000 ML IV SCH (20:30)
--- NOTE | 2018-01-20 22:28 | P.CONS ---
History of Present Illness - Reason for Consult Consult date: 01/20/18 metastatic colon adenocarcinoma Requesting physician: Garland Luis - Chief Complaint upper abd pain - History of Present Illness Mrs. King is a pleasant female pt of Dr. Rao who had presented in with c/o blood tinged discharge from vagina. She was seen by Dr. Ventura, had endometrial biopsy, positive for endometrial cancer. She was seen in [place] by Dr. Haney and surgery was planned. CT scans from 08/01/16 showed uterus to be mildly prominent with thickened endometrial stripe at 2.1 cm, no other mass lesions, omental changes or adenopathy was noted. She was supposed to have surgery in August but this was postponed. Attempted surgery on 10/13/16 but the tumor was found to be locally extensive involving the urinary bladder, the sigmoid colon, as well as the left ureter causing hydronephrosis, so, surgery was aborted. Peritoneal washings were done which were negative for malignancy. CT CAP 10/24/16 confirmed a large cystic and solid mass centered within the uterus with invasion of the urinary bladder and sigmoid colon, with obstructive left hydronephrosis, no pelvic adenopathy, PET scan which showed uptake in this mass, as well as apparently in a para-aortic node. The patient was then seen by Oncology, Dr. Mcfarlane, at [place], as well as [facility], , in [place]. Preop chemotherapy was recommended. The patient wanted to have chemo as she lives locally. She started chemo with Carbo and Taxol. She developed recto/ vaginal fistula. Dr. Arteaga decided to proceed to surgery on 01/11/17 and to stop chemo. She had surgery on 01/15/17, with a permanent colostomy. There was a large amount of tumor behind the urinary bladder, with trapping of the ureter, this was fixed and could not be resected, she had resection of the uterus and the rectosigmoid mass, along with placement of bilateral ureteral stents. Lymph node dissection could not be done. 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 Pt malignancy is complicated with residual tumor and nodes noted on PET, from one or both malignancies. She elected against any further active treatment. She has been having pain managed. She had emergency hernia surgery in 08/26, due to her abdominal hernia obstructing her ostomy. She had MRI and biopsy in 11/26 , showing progression, with the pathology too poorly differentiated to distinguish the primary. She has history of Michael-en-Y bypass with iron and B12 deficiency and has been on parenteral supplementation. Pt pain is typically in the lower abd area but, she started having upper abd pain, persistent and progressive, associated with poor appetite, no ostomy output for about 1 week, nausea and vomiting prior to admit, none since, mild BLE swelling. Review of Systems 14 point ROS is negative except as stated in HPI Past Medical History Past Medical History: Blood Disorder, Cancer, Heart Failure, Hearing Disorder / Deafness, Hypertension, Osteoarthritis (OA), Sleep Apnea/CPAP/BIPAP, Thyroid Disorder Additional Past Medical History / Comment(s): Pt stated that she has enlarged heart and two leaky valves. ENDOMETRIAL AND COLON CANCER. History of Any Multi-Drug Resistant Organisms: None Reported Past Surgical History: Bariatric Surgery, Bladder Surgery, Bowel Resection, Hernia Repair, Hysterectomy, Tonsillectomy, Tubal Ligation Additional Past Surgical History / Comment(s): Gastric Stapling 1978, pilonidal cyst removed pain associated with knees. D&C, MICHAEL-EN-Y,SUBTOTAL GASTRECTOMY, EGD. 2 URINARY STENTS. COLOSTOMY. Past Anesthesia/Blood Transfusion Reactions: Motion Sickness Past Psychological History: Anxiety, Depression Smoking Status: Never smoker Past Alcohol Use History: None Reported Past Drug Use History: None Reported - Past Family History Mother Family Medical History: Neurologic Disorder Additional Family Medical History / Comment(s): PACEMAKER, PARKINSONS Father Family Medical History: Myocardial Infarction ([place]) Additional Family Medical History / Comment(s): AFTER HAVING HIS 3RD [place] Medications and Allergies Home Medications Medication Instructions Recorded Confirmed Type Levothyroxine Sodium [Synthroid] 150 mcg PO DAILY 11/26/14 01/19/18 History Citalopram Hydrobromide [CeleXA] 40 mg PO DAILY 12/09/16 01/19/18 History Multivitamins, Thera [Multivitamin 1 tab PO DAILY 12/09/16 01/19/18 History (formulary)] Acetaminophen [Tylenol Arthritis] 650 mg PO BID 01/13/18 01/19/18 History Diltiazem Cd [Cardizem CD] 120 mg PO DAILY PRN MDD OVER 120 01/13/18 01/19/18 History Ergocalciferol (Vitamin D2) 50,000 unit PO MO 01/13/18 01/19/18 History [Drisdol] Ibuprofen [Motrin] 800 mg PO TID PRN 01/13/18 01/19/18 History L.acidoph,Paracasei, B.lactis 1 cap PO DAILY 01/13/18 01/19/18 History [Probiotic] Omeprazole 20 mg PO DAILY 01/13/18 01/19/18 History SILVER sulfADIAZINE Cream 1 applic TOPICAL DAILY PRN 01/13/18 01/19/18 History [Silvadene 1% Cream] Sulfamethoxazole/Trimethoprim 1 tab PO BID 01/13/18 01/19/18 History [Bactrim DS 800-160 mg] Cyanocobalamin [Vitamin B-12 1,000 mcg SQ QMONTH 01/19/18 01/19/18 History Injection] Dexamethasone [Decadron] 2 mg PO BID 01/19/18 01/19/18 History Furosemide [Lasix] 20 mg PO DAILY PRN 01/19/18 01/19/18 History Methocarbamol [Robaxin] 750 mg PO BID PRN 01/19/18 01/19/18 History Potassium Chloride ER [K-Dur 10] 10 meq PO DAILY PRN 01/19/18 01/19/18 History fentaNYL 100MCG/HR PATCH 1 patch TRANSDERM Q72H 01/19/18 01/19/18 History [Duragesic 100MCG/HR] fentaNYL 50MCG/HR PATCH [Duragesic 1 patch TRANSDERM Q72H 01/19/18 01/19/18 History 50MCG/HR] oxyCODONE HCL 15 mg PO Q4H PRN 01/19/18 01/19/18 History Allergies Allergy/AdvReac Type Severity Reaction Status Date / Time No Known Allergies Allergy Verified 01/19/18 15:08 Physical Exam Vitals: Vital Signs Temp Pulse Pulse Resp BP BP Pulse Ox 01/20/18 07:00 97.9 F 75 16 116/71 96 01/20/18 00:07 98 F 80 18 119/77 95 01/19/18 19:49 98.2 F 80 18 119/76 96 01/19/18 15:34 98.6 F 20 98 01/19/18 15:30 76 17 131/95 98 01/19/18 14:20 74 18 144/87 99 Intake and Output 01/19/18 01/20/18 01/20/18 22:59 06:59 14:59 Output Total 200 Balance -200 Output: Urine 200 Other: # Voids 2 Weight 99.79 kg - Constitutional General appearance: cooperative, no acute distress, obese - EENT Eyes: anicteric sclerae, EOMI ENT: hearing grossly normal, normal oropharynx - Neck Neck: no lymphadenopathy - Respiratory Respiratory: bilateral: CTA - Cardiovascular Rhythm: regular Heart sounds: normal: S1, S2 leg Peripheral Edema: bilateral: 1+ - Gastrointestinal ostomy General gastrointestinal: decreased bowel sounds, distended, soft, tenderness Localized gastrointestinal: tender: RUQ - Integumentary Integumentary: pale - Neurologic Neurologic: CNII-XII intact - Musculoskeletal Musculoskeletal: strength equal bilaterally - Psychiatric Psychiatric: A&O x's 3, appropriate affect, intact judgment & insight Results CBC & Chem 7: 01/20/18 08:03 01/20/18 08:03 Labs: Abnormal Lab Results - Last 24 Hours (Table) 01/20/18 01/20/18 Range/Units 08:03 08:03 WBC 3.6 L (3.8-10.6) k/uL RBC 3.48 L (3.80-5.40) m/uL Hgb 10.9 L (11.4-16.0) gm/dL MCV 100.3 H (80.0-100.0) fL Lymphocytes # 0.5 L (1.0-4.8) k/uL BUN 22 H (7-17) mg/dL Glucose 110 H (74-99) mg/dL Total Bilirubin 1.7 H (0.2-1.3) mg/dL AST 377 H (14-36) U/L ALT 312 H (9-52) U/L Alkaline Phosphatase 367 H (38-126) U/L Total Protein 5.4 L (6.3-8.2) g/dL Albumin 2.8 L (3.5-5.0) g/dL Microbiology - Last 24 Hours (Table) 01/19/18 10:51 Urine Culture - Preliminary Urine,Voided Yeast species 01/19/18 17:05 Urine Culture - Preliminary Urine,Voided Assessment and Plan (1) Endometrial adenocarcinoma Current Visit: Yes Status: Chronic Priority: Medium Code(s): C54.1 - MALIGNANT NEOPLASM OF ENDOMETRIUM SNOMED Code(s): 236525588 (2) Metastatic colon cancer in female Current Visit: Yes Status: Chronic Priority: Medium Code(s): C18.9 - MALIGNANT NEOPLASM OF COLON, UNSPECIFIED SNOMED Code(s): 140092283 Plan: Pt has decided against malignancy treatment. She has opted for symptom management and requires pain medication adjustments frequently. She has refused hospice and palliative care does not manage pain meds only. She does have ureteral stent exchanges PRN. Pt has been evaluated by GI and Surgery. Currently she is being treated conservatively for suspect opioid induced constipation.
[2018-01-21] MEDS: HYDROmorphone 1 MG/ML 1 ML SYRINGE IVP PRN ×4 (04:03→12:25)
[2018-01-21 07:14] LABS: Basophils % (A) 0 %; Eosinophils % (A) 1 %; HCT 34.9 % (34.0-46.0); HGB 11.4 gm/dL (11.4-16.0); Lymphocytes # (A) 0.7 k/uL (1.0-4.8); Lymphocytes % (A) 18 %; MCH 32.5 pg (25.0-35.0); MCHC 32.7 g/dL (31.0-37.0); MCV 99.4 fL (80.0-100.0); Macrocytosis Slight; Mean Platelet Volume 6.7; Monocytes # (A) 0.3 k/uL (0-1.0); Monocytes % (A) 8 %; Neutrophils # (A) 2.7 k/uL (1.3-7.7); Neutrophils % (A) 71 %; Platelet Count 278 k/uL (150-450); RBC 3.51 m/uL (3.80-5.40); RDW 14.2 % (11.5-15.5); WBC 3.8 k/uL (3.8-10.6)
[2018-01-21 07:23] LABS: ALT 311 U/L (9-52); AST 368 U/L (14-36); Alkaline Phosphatase 477 U/L (38-126); Anion Gap 5 mmol/L; Blood Urea Nitrogen 19 mg/dL (7-17); Calcium 8.4 mg/dL (8.4-10.2); Carbon Dioxide 25 mmol/L (22-30); Chloride 106 mmol/L (98-107); Glucose 87 mg/dL (74-99); Potassium 3.5 mmol/L (3.5-5.1); Sodium 136 mmol/L (137-145); Total Bilirubin 2.6 mg/dL (0.2-1.3); Total Protein 5.6 g/dL (6.3-8.2)
[2018-01-21 08:18] VITALS: BP 143/75; PULSE 99; TEMP 98.2
[2018-01-21] MEDS: HEPARIN SODIUM,PORCINE 5,000 UNIT/ML 1 ML VIAL SQ SCH (09:28)
[2018-01-21] MEDS: PANTOPRAZOLE 40 MG/10 ML VIAL IVP SCH (09:29)
[2018-01-21] MEDS ORDERED: LEVOTHYROXINE IVP 100 MCG/5 ML VIAL IV SCH (10:30)
[2018-01-21] MEDS ORDERED: ONDANSETRON 4 MG/2 ML VIAL IVP STA (12:27)
--- NOTE | 2018-01-21 12:40 | P.PN ---
Subjective Progress Note Date: 01/21/18 Patient seen and examined. She is having some upper abdominal pain. Some nausea no emesis overnight. No output out of ostomy. Objective - Vital Signs Vital signs: Vital Signs Temp 98.2 F 01/21/18 07:00 Pulse 99 01/21/18 07:00 Resp 16 01/21/18 07:00 BP 143/75 01/21/18 07:00 Pulse Ox 95 01/21/18 07:00 Intake & Output 01/20/18 01/21/18 01/21/18 18:59 06:59 18:59 Intake Total 400 740 Output Total 200 Balance 200 740 Intake: Intake, IV Titration 400 150 Amount Dextrose 5%-0.9% NaCl 1, 400 150 000 ml @ 50 mls/hr IV . Q20H [facility] Rx#:[id number] Oral 590 Output: Urine 200 Other: Voiding Method Toilet Toilet # Voids 3 2 1 - Constitutional General appearance: Present: cooperative - Respiratory Details: Nonlabored - Cardiovascular Rhythm: regular - Gastrointestinal Gastrointestinal Comment(s): Soft mild distention ostomy pink and patent no output in bag mouth and his palpation upper quadrants - Psychiatric Psychiatric: Present: A&O x's 3 - Labs CBC & Chem 7: 01/21/18 06:41 01/21/18 06:41 Labs: Abnormal Lab Results - Last 24 Hours (Table) 01/21/18 01/21/18 Range/Units 06:41 06:41 RBC 3.51 L (3.80-5.40) m/uL Lymphocytes # 0.7 L (1.0-4.8) k/uL Sodium 136 L (137-145) mmol/L BUN 19 H (7-17) mg/dL Total Bilirubin 2.6 H (0.2-1.3) mg/dL AST 368 H (14-36) U/L ALT 311 H (9-52) U/L Alkaline Phosphatase 477 H (38-126) U/L Total Protein 5.6 L (6.3-8.2) g/dL Albumin 3.0 L (3.5-5.0) g/dL Microbiology - Last 24 Hours (Table) 01/19/18 17:05 Urine Culture - Final Urine,Voided Yana albicans 01/19/18 10:51 Urine Culture - Preliminary Urine,Voided Yeast species Assessment and Plan Assessment: Partial risk for obstruction at JJ anastomotic site Plan: Computed tomography scan revealed markedly dilated afferent loop. 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 Due to complex medical and surgical past history patient will be [facility] facility for higher level of care. This is discussed the patient in detail who understood agreed and consented
--- NOTE | 2018-02-03 19:01 | P.DS ---
Providers Date of admission: 01/19/18 14:58 Expected date of discharge: 01/21/18 Attending physician: Padilla Monsalve Consults: 01/19/18 14:58 Consult Physician Routine Consulting Provider: Doug Rao Consult Reason/Comments: known Do you want consulting provider notified?: Yes 01/19/18 15:50 Consult Physician Urgent Consulting Provider: Dhruv Dunne Consult Reason/Comments: abd pain , gall bladder disease Do you want consulting provider notified?: Yes 01/20/18 09:39 Consult Physician Routine Consulting Provider: Vane Nino Consult Reason/Comments: obstruction Do you want consulting provider notified?: Yes Primary care physician: Stephanie Rider Hospital Course: Final DIagnoses: Abdominal pain, Partial risk for obstruction at JJ anastomotic site. 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 Possible acute cholecystitis with gallstone disease Possible urinary tract infection Possible intestinal ileus Colorectal cancer, patient on palliative care with pain management. Status post right abdominal colostomy History of congestive heart failure, type unknown Essential hypertension Hypothyroidism Hospital course:This is a pleasant 67 years old female with past medical history of advanced colon AND on palliative chemotherapy, congestive heart failure, and hearing disorder, hypertension, sleep apnea, osteoarthritis, hypothyroidism, who presents because of abdominal pain. Patient states for about a week she has normal bowel movements through the colostomy which was done and regular in hospital for her tumor, patient states that she has an obstructed bowel so she came to emergency room. Her pain is associated with several bouts of nausea vomiting about 10-12 times today, no blood. Patient is known case of colorectal cancer as per patient and caregiver at bedside and she was followed up with Dr. Scott and get some chemotherapy for short time but then referred to palliative care and pain management basically. She has chronic abdominal pain but over the last week as was getting worse although usually it fluctuates, and pain is located in the lower abdomen right dictating op about 7/ 10 in severity, compared to 4/10 before. Feels like something chewing her down like ache which is constant. She had some bleeding per rectum before but now came down however she currently complains from bleeding from her bladder, and possible dysuria but wasn't sure. No fever On admission Vitas looks stable. CBC and BMP was unremarkable except for mild hyponatremia at 135. Her liver enzymes and bilirubin are elevated. And UA is with high WBC and RBC is with leukocyte esterase. Gallbladder ultrasound: Dilated gallbladder about 6 cm with multiple gallstones. Abdominal x-ray shows moderately dilated loops of the large and small bowel throughout the abdomen with no evidence of obstruction or free air 01/20/2018 Patient states that her abdominal pain is improved but her after she is getting IV opioids and Dilaudid. No more nausea vomiting. However she still have empty colostomy bag Vitas looks stable. Her liver enzymes and bilirubin are trending down. Surgical and GI consults are called.Gallbladder ultrasound: Dilated gallbladder about 6 cm with multiple gallstones. Abdominal x-ray shows moderately dilated loops of the large and small bowel throughout the abdomen with no evidence of obstruction or free air 01/21/2018 evaluated by surgery. Continues to have upper abdominal pain accompanied by nausea, no emesis. Colostomy empty-no output. 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 Per surgery's recommendations, given the complex medical and surgical past history, patient will be transferred to a tertiary care facility for higher level of care-[facility]. Discussed with the patient in detail who understood agreed and consented. Exam Physical exam, date of service 01/19/2018 GENERAL: The patient is alert and oriented x3, not in any acute distress. HEENT: Pupils are round and equally reacting to light. EOMI. No scleral icterus. No conjunctival pallor. Normocephalic, atraumatic. CARDIOVASCULAR: S1 and S2 present. No murmurs, rubs, or gallops. PULMONARY: Chest is clear to auscultation, no wheezing or crackles. -ABDOMEN: Soft, distended, generalized tenderness, no rebound tenderness, colostomy empty. MUSCULOSKELETAL: No joint swelling or deformity. EXTREMITIES: No cyanosis, clubbing, or pedal edema. NEUROLOGICAL: Gross neurological examination did not reveal any focal deficits. SKIN: No rashes. The impression and plan of care has been dictated as directed. : I performed a history and examination of this patient, discussed the same with the dictator. I agree with the dictator's note ,documented as a scribe. Any additional findings or plans will be noted. Time taken: 35 minutes Patient Condition at Discharge: Stable Plan - Discharge Summary Discharge Rx Participant: No New Discharge Prescriptions: New cefTRIAXone [Rocephin] 1,000 mg IVPB Q24H vial fentaNYL 100MCG/HR PATCH [Duragesic 100MCG/HR] 1 patch TRANSDERM Q72H patch fentaNYL 50MCG/HR PATCH [Duragesic 50MCG/HR] 1 patch TRANSDERM Q72H patch Heparin Sodium,Porcine [Heparin Sodium] 5,000 unit SQ Q12HR vial Non-Formulary Drug [Non Formulary Drug] 40 mg IV DAILY #1 misc Non-Formulary Drug [Non Formulary Drug] 2 mg IV Q3H PRN #1 misc PRN Reason: Pain Non-Formulary Drug [Non Formulary Drug] 1 gm IV DAILY #1 misc Ondansetron [Zofran] 4 mg IVP Q6H PRN #1 vial PRN Reason: Nausea Non-Formulary Drug [Non Formulary Drug] 75 mcg IV DAILY #1 misc Continue Cyanocobalamin [Vitamin B-12 Injection] 1,000 mcg SQ QMONTH Discontinued Multivitamins, Thera [Multivitamin (formulary)] 1 tab PO DAILY Citalopram Hydrobromide [CeleXA] 40 mg PO DAILY Ibuprofen [Motrin] 800 mg PO TID PRN PRN Reason: Pain Acetaminophen [Tylenol Arthritis] 650 mg PO BID Sulfamethoxazole/Trimethoprim [Bactrim DS 800-160 mg] 1 tab PO BID Ergocalciferol (Vitamin D2) [Drisdol] 50,000 unit PO MO oxyCODONE HCL 15 mg PO Q4H PRN PRN Reason: Pain Methocarbamol [Robaxin] 750 mg PO BID PRN PRN Reason: Spasms fentaNYL 50MCG/HR PATCH [Duragesic 50MCG/HR] 1 patch TRANSDERM Q72H fentaNYL 100MCG/HR PATCH [Duragesic 100MCG/HR] 1 patch TRANSDERM Q72H Potassium Chloride ER [K-Dur 10] 10 meq PO DAILY PRN PRN Reason: Edema Furosemide [Lasix] 20 mg PO DAILY PRN PRN Reason: Edema Dexamethasone [Decadron] 2 mg PO BID No Action Levothyroxine Sodium [Synthroid] 150 mcg PO DAILY SILVER sulfADIAZINE Cream [Silvadene 1% Cream] 1 applic TOPICAL DAILY PRN PRN Reason: Rash Diltiazem Cd [Cardizem CD] 120 mg PO DAILY PRN MDD OVER 120 PRN Reason: Blood Pressure - High Omeprazole 20 mg PO DAILY L.acidoph,Paracasei, B.lactis [Probiotic] 1 cap PO DAILY Discharge Medication List Levothyroxine Sodium [Synthroid] 150 mcg PO DAILY 11/26/14 [History] Diltiazem Cd [Cardizem CD] 120 mg PO DAILY PRN MDD OVER 120 01/13/18 [History] L.acidoph,Paracasei, B.lactis [Probiotic] 1 cap PO DAILY 01/13/18 [History] Omeprazole 20 mg PO DAILY 01/13/18 [History] SILVER sulfADIAZINE Cream [Silvadene 1% Cream] 1 applic TOPICAL DAILY PRN [History] Cyanocobalamin [Vitamin B-12 Injection] 1,000 mcg SQ QMONTH 01/19/18 [History] Heparin Sodium,Porcine [Heparin Sodium] 5,000 unit SQ Q12HR vial 01/21/18 [Rx] Non-Formulary Drug [Non Formulary Drug] 1 gm IV DAILY #1 [facility] [place] 01/21/18 [Rx] Non-Formulary Drug [Non Formulary Drug] 2 mg IV Q3H PRN #1 [facility] [place] 01/21/18 [Rx] Non-Formulary Drug [Non Formulary Drug] 40 mg IV DAILY #1 [facility] [place] 01/21/18 [Rx] Non-Formulary Drug [Non Formulary Drug] 75 mcg IV DAILY #1 [facility] [place] 01/21/18 [Rx] Ondansetron [Zofran] 4 mg IVP Q6H PRN #1 vial 01/21/18 [Rx] cefTRIAXone [Rocephin] 1,000 mg IVPB Q24H vial 01/21/18 [Rx] fentaNYL 100MCG/HR PATCH [Duragesic 100MCG/HR] 1 patch TRANSDERM Q72H patch [Rx] fentaNYL 50MCG/HR PATCH [Duragesic 50MCG/HR] 1 patch TRANSDERM Q72H patch 01/21 [Rx] Follow up Appointment(s)/Referral(s): Tereso Brown MD [Primary Care Provider] - 3 Days (after dc from [facility]) [facility] Visiting Nurse, [NON-STAFF] - Activity/Diet/Wound Care/Special Instructions: [facility] Main Discharge Disposition: TRANSFER TO [facility]
== END 2018-01-21 12:40 | disposition short-term general hospital (02) | DRG 394 ==
LOC: EC 10:14 → 4MS4W 14:58 → 4SSUR 15:28
PROVIDERS: ADMIT Hospitalist; ATTEND Hospitalist
DX: K95.89 Other complications of other bariatric procedure (principal); K91.31 Postprocedural partial intestinal obstruction; C19 Malignant neoplasm of rectosigmoid junction; K80.12 Calculus of gallbladder with acute and chronic cholecystitis without obstruction; N39.0 Urinary tract infection, site not specified; C79.82 Secondary malignant neoplasm of genital organs; C79.60 Secondary malignant neoplasm of unspecified ovary; I11.0 Hypertensive heart disease with heart failure; I50.9 Heart failure, unspecified; E03.9 Hypothyroidism, unspecified; F32.9 Major depressive disorder, single episode, unspecified; F41.9 Anxiety disorder, unspecified; G47.33 Obstructive sleep apnea (adult) (pediatric); G89.29 Other chronic pain; H91.90 Unspecified hearing loss, unspecified ear; Z30.2 Encounter for sterilization; E53.8 Deficiency of other specified B group vitamins; M19.90 Unspecified osteoarthritis, unspecified site; R74.8 Abnormal levels of other serum enzymes; E61.1 Iron deficiency; K59.03 Drug induced constipation; T40.2X5A Adverse effect of other opioids, initial encounter; Z79.899 Other long term (current) drug therapy; Z79.890 Hormone replacement therapy; Z98.84 Bariatric surgery status; Z93.3 Colostomy status; Z90.710 Acquired absence of both cervix and uterus; Z90.49 Acquired absence of other specified parts of digestive tract; Z82.0 Family history of epilepsy and other diseases of the nervous system; Z82.49 Family history of ischemic heart disease and other diseases of the circulatory system; Y83.2 Surgical operation with anastomosis, bypass or graft as the cause of abnormal reaction of the patient, or of later complication, without mention of misadventure at the time of the procedure
CPT/HCPCS: 36415; 74022; 74177; 76705; 80053; 81001; 82150; 83605; 83690; 85025; 87086; 96361; 96365; 96375; 96376; 99285

== ENCOUNTER 2018-02-07 19:35 | Observation (INO) | payer MEDICARE, OTHER ==
[2018-02-07] MEDS ORDERED: NALOXONE 0.4 MG/ML 1 ML VIAL IV PRN (22:10)
--- NOTE | 2018-02-07 22:10 | ED ---
General Adult HPI - General Chief complaint: Recheck/Abnormal Lab/Rx Stated complaint: Displaced G Tube Time Seen by Provider: 02/07/18 19:59 Source: patient, family, RN notes reviewed, old records reviewed Mode of arrival: EMS Limitations: no limitations - History of Present Illness Initial comments: Chief complaint and history of present illness this is a 67 year old female multiple medical problems. The patient reportedly was having physical therapy today at a local nursing facility and inadvertently pulled out her gastrostomy tube. The patient had a Bustamante catheter placed to keep the opening patent. She continues to drain through the surrounding hole. Currently unknown what type of device had been implanted at [facility]. The patient be admitted to the hospitalist evening with consultation in the morning for evaluation of proper PEG placement. 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 - Related Data Home Medications Medication Instructions Recorded Confirmed Levothyroxine Sodium [Synthroid] 150 mcg PO DAILY 11/26/14 02/07/18 Diltiazem Cd [Cardizem CD] 120 mg PO DAILY PRN MDD OVER 120 01/13/18 02/07/18 SILVER sulfADIAZINE Cream 1 applic TOPICAL DAILY PRN 01/13/18 02/07/18 [Silvadene 1% Cream] Citalopram Hydrobromide [CeleXA] 40 mg PO HS PRN 02/07/18 02/07/18 Cyclobenzaprine [Flexeril] 10 mg PO Q8HR PRN 02/07/18 02/07/18 Docusate [Colace] 100 mg PO PCHS 02/07/18 02/07/18 Ergocalciferol [Vitamin D2 50,000 unit PO WE 02/07/18 02/07/18 (DRISDOL)] Famotidine [Pepcid] 20 mg PO BID 02/07/18 02/07/18 Gabapentin [Neurontin] 300 mg PO Q8HR 02/07/18 02/07/18 Ibuprofen [Motrin] 800 mg PO Q6H PRN 02/07/18 02/07/18 Miconazole 2% Cream [Monistat-Derm] 1 applic VAGINAL Q6HR PRN 02/07/18 02/07/18 Sennosides [Senna] 8.6 mg PO DAILY@1400 PRN 02/07/18 02/07/18 fentaNYL 100MCG/HR PATCH 100 mcg TRANSDERM Q72H 02/07/18 02/07/18 [Duragesic 100MCG/HR] fentaNYL 50MCG/HR PATCH [Duragesic 50 mcg TRANSDERM Q72H 02/07/18 02/07/18 50MCG/HR] oxyCODONE HCL [OxyIR] 5 mg PO Q4HR 02/07/18 02/07/18 Allergies Allergy/AdvReac Type Severity Reaction Status Date / Time No Known Allergies Allergy Verified 02/07/18 20:05 Review of Systems ROS Statement: Those systems with pertinent positive or pertinent negative responses have been documented in the HPI. Review of systems. Patient is not complaining of any headache or chest pain or shortness of breath. The gastrostomy tube had been in place was inadvertently pulled out during physical therapy today. She has temporary indwelling Bustamante catheter to keep the hole patent. Past medical problems blood disorder, states for cancer, CHF, hypertension, hypothyroidism, colon and endometrial cancer. Multiple surgeries include bariatric surgery bladder surgery, bowel resection, hernia repair hysterectomy, tonsillectomy, tubal ligation, 2 urinary stents and colostomy. Family history no major dry. No known ALLERGIES. Nonsmoker nondrinker. ROS Other: All systems not noted in ROS Statement are negative. Past Medical History Past Medical History: Blood Disorder, Cancer, Heart Failure, Hearing Disorder / Deafness, Hypertension, Osteoarthritis (OA), Sleep Apnea/CPAP/BIPAP, Thyroid Disorder Additional Past Medical History / Comment(s): Pt stated that she has enlarged heart and two leaky valves. ENDOMETRIAL AND COLON CANCER. History of Any Multi-Drug Resistant Organisms: None Reported Past Surgical History: Bariatric Surgery, Bladder Surgery, Bowel Resection, Hernia Repair, Hysterectomy, Tonsillectomy, Tubal Ligation Additional Past Surgical History / Comment(s): Gastric Stapling 1978, pilonidal cyst removed pain associated with knees. D&C, URSZULA-EN-Y,SUBTOTAL GASTRECTOMY, EGD. 2 URINARY STENTS. COLOSTOMY. gastric tube. Past Anesthesia/Blood Transfusion Reactions: Motion Sickness Past Psychological History: Anxiety, Depression Smoking Status: Never smoker Past Alcohol Use History: None Reported Past Drug Use History: None Reported - Past Family History Mother Family Medical History: Neurologic Disorder Additional Family Medical History / Comment(s): PACEMAKER, PARKINSONS Father Family Medical History: Myocardial Infarction ([place]) Additional Family Medical History / Comment(s): AFTER HAVING HIS 3RD [place] General Exam - General Exam Comments Initial Comments: General: The patient is awake and alert, here because a feeding gastrostomy tube him out. And the tube placed to maintain the opening is allowing contents the flow around it. Vital signs shows temperature 99.2 pulse 98 respiratory rate 16 pulse ox 95% room air blood pressure 103/65 Eye: Pupils are equal, round and reactive to light, extra-ocular movements are intact ; there is normal conjunctiva bilaterally. No signs of icterus. Ears, nose, mouth and throat: Dry mucous membranes. The patient received IV bolus. Neck: The neck is supple, Cardiovascular: There is a regular rate and rhythm. Respiratory: No complaint of shortness of breath. Lungs are clear. Gastrointestinal: Patient has a colostomy bag as well as a hole that is thought to be for gastrostomy tube. It fell out during physical therapy today fully catheter was placed to maintain the patency of the hole. Unable to determine what kind of tube had been placed for purpose the patient be admitted for evaluation in the morning. Back: No back pain Limitations: no limitations Course Vital Signs 02/07/18 19:41 Temperature 99.2 F Pulse Rate 98 Respiratory 16 Rate Blood Pressure 103/65 O2 Sat by Pulse 95 Oximetry Medical Decision Making - Medical Decision Making Patient be admitted for gastrostomy tube malfunction. Case discussed with cj fermentation scientist for Dr. Dixon. They will return in the morning if a general surgeon needs to be consulted or GI Disposition Clinical Impression: Malfunction of gastrostomy tube Disposition: ADMITTED IP TO THIS HOSP Condition: Fair Referrals: Tereso Brown MD [Primary Care Provider] - 1-2 days
[2018-02-07] MEDS ORDERED: DILTIAZEM CD 120 MG CAP.ER.24H PO PRN (22:13)
[2018-02-07] MEDS ORDERED: CITALOPRAM HYDROBROMIDE 20 MG TAB PO PRN (22:13)
[2018-02-07] MEDS ORDERED: SODIUM CHLORIDE 0.9% 1,000 ML IV SCH (22:15)
[2018-02-07] MEDS ORDERED: oxyCODONE-APAP 5-325MG 1 EACH TAB PO STA (23:13)
[2018-02-07 23:49] LABS: Basophils # (A) 0.1 k/uL (0-0.2); Basophils % (A) 1 %; Eosinophils # (A) 0.1 k/uL (0-0.7); Eosinophils % (A) 1 %; HCT 29.6 % (34.0-46.0); Lymphocytes # (A) 1.9 k/uL (1.0-4.8); Lymphocytes % (A) 21 %; MCH 31.8 pg (25.0-35.0); MCHC 32.4 g/dL (31.0-37.0); Mean Platelet Volume 6.8; Monocytes # (A) 0.5 k/uL (0-1.0); Monocytes % (A) 6 %; Neutrophils # (A) 5.8 k/uL (1.3-7.7); Neutrophils % (A) 67 %; Platelet Count 381 k/uL (150-450); RBC 3.02 m/uL (3.80-5.40); RDW 14.3 % (11.5-15.5); WBC 8.7 k/uL (3.8-10.6)
[2018-02-07 23:57] LABS: HGB 9.6 gm/dL (11.4-16.0)
[2018-02-08 00:03] LABS: ALT 27 U/L (9-52); AST 21 U/L (14-36); Albumin 2.2 g/dL (3.5-5.0); Alkaline Phosphatase 176 U/L (38-126); Anion Gap 4 mmol/L; Blood Urea Nitrogen 23 mg/dL (7-17); Calcium 7.9 mg/dL (8.4-10.2); Carbon Dioxide 32 mmol/L (22-30); Chloride 100 mmol/L (98-107); Glucose 87 mg/dL (74-99); Potassium 4.3 mmol/L (3.5-5.1); Sodium 136 mmol/L (137-145); Total Bilirubin 0.4 mg/dL (0.2-1.3); Total Protein 5.3 g/dL (6.3-8.2)
[2018-02-08] MEDS: GABAPENTIN 300 MG CAP PO SCH ×4 (01:39→23:35)
[2018-02-08] MEDS: IBUPROFEN 800 MG TAB PO PRN ×2 (01:39→16:21)
[2018-02-08 01:40] VITALS: RESP 16
[2018-02-08] MEDS: SODIUM CHLORIDE 0.9% 1,000 ML IV SCH ×2 (04:34→22:00)
[2018-02-08] MEDS: CYCLOBENZAPRINE 10 MG TAB PO PRN ×3 (06:06→17:13)
[2018-02-08] MEDS: LEVOTHYROXINE 75 MCG TAB PO SCH (06:07)
[2018-02-08] MEDS: FAMOTIDINE 20 MG TAB PO SCH ×2 (09:01→19:44)
[2018-02-08 10:30] VITALS: BMI 42.5
--- NOTE | 2018-02-08 12:34 | P.GSCN ---
History of Present Illness Consult date: 02/08/18 Reason for Consult: Malfunctioning G-tube History of present illness: Patient presents to the hospital from the senior living after her gastrostomy tube fell out. She is having significant bilious drainage around the Bustamante catheter that was used in place of the gastrostomy tube. Patient apparently has a bowel obstruction related to intra-abdominal malignancy that is thought to be likely endometrial. I do not have any with the records from her previous hospitalizations at tertiary care centers. Apparently she has had a Michael-en-Y bypass. Apparently she is eating full liquid diet. She states when she eats it does not come out of the catheter in the stomach. I suspect the gastrostomy tube was present in the defunctionalized portion of distal stomach. It is bilious fluid around the gastrostomy site currently. Some skin irritation. Mild pain there. Review of Systems The patient denies any acute changes in vision or hearing, no dysphagia or odynophagia, no chest pain or shortness of breath, no dysuria or hematuria, no headache, no runny nose, no rectal bleeding or melena, no unexplained weight loss Past Medical History Past Medical History: Blood Disorder, Cancer, Heart Failure, Hearing Disorder / Deafness, Hypertension, Osteoarthritis (OA), Sleep Apnea/CPAP/BIPAP, Thyroid Disorder Additional Past Medical History / Comment(s): Pt stated that she has enlarged heart and two leaky valves. ENDOMETRIAL AND COLON CANCER. History of Any Multi-Drug Resistant Organisms: None Reported Past Surgical History: Bariatric Surgery, Bladder Surgery, Bowel Resection, Hernia Repair, Hysterectomy, Tonsillectomy, Tubal Ligation Additional Past Surgical History / Comment(s): Gastric Stapling 1978, pilonidal cyst removed pain associated with knees. D&C, MICHAEL-EN-Y,SUBTOTAL GASTRECTOMY, EGD. 2 URINARY STENTS. COLOSTOMY. gastric tube. Past Anesthesia/Blood Transfusion Reactions: Motion Sickness Past Psychological History: Anxiety, Depression Additional Psychological History / Comment(s): Pt stated that she has taken anti -depressants for 30 years off and on. Smoking Status: Never smoker Past Alcohol Use History: None Reported Past Drug Use History: None Reported - Past Family History Mother Family Medical History: Neurologic Disorder Additional Family Medical History / Comment(s): PACEMAKER, PARKINSONS Father Family Medical History: Myocardial Infarction ([place]) Additional Family Medical History / Comment(s): AFTER HAVING HIS 3RD [place] Medications and Allergies Home Medications Medication Instructions Recorded Confirmed Type Levothyroxine Sodium [Synthroid] 150 mcg PO DAILY 11/26/14 02/07/18 History Diltiazem Cd [Cardizem CD] 120 mg PO DAILY PRN MDD OVER 120 01/13/18 02/07/18 History SILVER sulfADIAZINE Cream 1 applic TOPICAL DAILY PRN 01/13/18 02/07/18 History [Silvadene 1% Cream] Citalopram Hydrobromide [CeleXA] 40 mg PO HS PRN 02/07/18 02/07/18 History Cyclobenzaprine [Flexeril] 10 mg PO Q8HR PRN 02/07/18 02/07/18 History Docusate [Colace] 100 mg PO PCHS 02/07/18 02/07/18 History Ergocalciferol [Vitamin D2 50,000 unit PO WE 02/07/18 02/07/18 History (DRISDOL)] Famotidine [Pepcid] 20 mg PO BID 02/07/18 02/07/18 History Gabapentin [Neurontin] 300 mg PO Q8HR 02/07/18 02/07/18 History Ibuprofen [Motrin] 800 mg PO Q6H PRN 02/07/18 02/07/18 History Miconazole 2% Cream [Monistat-Derm] 1 applic VAGINAL Q6HR PRN 02/07/18 02/07/18 History Sennosides [Senna] 8.6 mg PO DAILY@1400 PRN 02/07/18 02/07/18 History fentaNYL 100MCG/HR PATCH 100 mcg TRANSDERM Q72H 02/07/18 02/07/18 History [Duragesic 100MCG/HR] fentaNYL 50MCG/HR PATCH [Duragesic 50 mcg TRANSDERM Q72H 02/07/18 02/07/18 History 50MCG/HR] oxyCODONE HCL [OxyIR] 5 mg PO Q4HR 02/07/18 02/07/18 History Allergies Allergy/AdvReac Type Severity Reaction Status Date / Time No Known Allergies Allergy Verified 02/07/18 20:05 Surgical - Exam Vital Signs Temp Pulse Resp BP Pulse Ox 99.2 F 98 16 103/65 95 02/07/18 19:41 02/07/18 19:41 02/07/18 19:41 02/07/18 19:41 02/07/18 19:41 Physical exam: General: Well-developed, well-nourished HEENT: Normocephalic, sclerae nonicteric Abdomen: Previous scars noted, left lower abdominal wall ostomy without function , Bustamante catheter seen in a small wound in the epigastric region with bilious fluid emanating around this and mild skin excoriation Extremities: No edema Neuro: Alert and oriented Results - Labs 02/07/18 23:31 02/07/18 23:31 Abnormal Lab Results - Last 24 Hours (Table) 02/07/18 02/07/18 Range/Units 23:31 23:31 RBC 3.02 L (3.80-5.40) m/uL Hgb 9.6 L D (11.4-16.0) gm/dL Hct 29.6 L (34.0-46.0) % Sodium 136 L (137-145) mmol/L Carbon Dioxide 32 H (22-30) mmol/L BUN 23 H (7-17) mg/dL Creatinine 0.50 L (0.52-1.04) mg/dL Calcium 7.9 L (8.4-10.2) mg/dL Alkaline Phosphatase 176 H (38-126) U/L Total Protein 5.3 L (6.3-8.2) g/dL Albumin 2.2 L (3.5-5.0) g/dL Diabetes panel 02/07/18 Range/Units 23:31 Sodium 136 L (137-145) mmol/L Potassium 4.3 (3.5-5.1) mmol/L Chloride 100 (98-107) mmol/L Carbon Dioxide 32 H (22-30) mmol/L BUN 23 H (7-17) mg/dL Creatinine 0.50 L (0.52-1.04) mg/dL Glucose 87 (74-99) mg/dL Calcium 7.9 L (8.4-10.2) mg/dL AST 21 (14-36) U/L ALT 27 (9-52) U/L Alkaline Phosphatase 176 H (38-126) U/L Total Protein 5.3 L (6.3-8.2) g/dL Albumin 2.2 L (3.5-5.0) g/dL Calcium panel 02/07/18 Range/Units 23:31 Calcium 7.9 L (8.4-10.2) mg/dL Albumin 2.2 L (3.5-5.0) g/dL Pituitary panel 02/07/18 Range/Units 23:31 Sodium 136 L (137-145) mmol/L Potassium 4.3 (3.5-5.1) mmol/L Chloride 100 (98-107) mmol/L Carbon Dioxide 32 H (22-30) mmol/L BUN 23 H (7-17) mg/dL Creatinine 0.50 L (0.52-1.04) mg/dL Glucose 87 (74-99) mg/dL Calcium 7.9 L (8.4-10.2) mg/dL Adrenal panel 02/07/18 Range/Units 23:31 Sodium 136 L (137-145) mmol/L Potassium 4.3 (3.5-5.1) mmol/L Chloride 100 (98-107) mmol/L Carbon Dioxide 32 H (22-30) mmol/L BUN 23 H (7-17) mg/dL Creatinine 0.50 L (0.52-1.04) mg/dL Glucose 87 (74-99) mg/dL Calcium 7.9 L (8.4-10.2) mg/dL Total Bilirubin 0.4 (0.2-1.3) mg/dL AST 21 (14-36) U/L ALT 27 (9-52) U/L Alkaline Phosphatase 176 H (38-126) U/L Total Protein 5.3 L (6.3-8.2) g/dL Albumin 2.2 L (3.5-5.0) g/dL Assessment and Plan (1) Malfunction of gastrostomy tube Narrative/Plan: Will replace the patient's Bustamante catheter with a formal gastrostomy tube. Resume full liquid diet. Based on how the patient does we may were need to review previous records from tertiary care centers. Bustamante catheter removed without difficulty. New 18-Austrian balloon gastrostomy replacement advanced without meeting resistance. Balloon was inflated with 10 mL H2O. Bolster was tightened appropriately. Zinc oxide used around the tube site. Sterile dressings applied. Current Visit: Yes Status: Acute Code(s): K94.23 - GASTROSTOMY MALFUNCTION SNOMED Code(s): 437963274
[2018-02-08 12:53] LABS: ALT 18 U/L (9-52); AST 20 U/L (14-36); Albumin 2.1 g/dL (3.5-5.0); Alkaline Phosphatase 172 U/L (38-126); Anion Gap 4 mmol/L; Blood Urea Nitrogen 20 mg/dL (7-17); Calcium 7.8 mg/dL (8.4-10.2); Carbon Dioxide 31 mmol/L (22-30); Chloride 103 mmol/L (98-107); Glucose 78 mg/dL (74-99); Phosphorus 4.9 mg/dL (2.5-4.5); Potassium 3.8 mmol/L (3.5-5.1); Sodium 138 mmol/L (137-145); Total Bilirubin 0.4 mg/dL (0.2-1.3); Total Protein 4.9 g/dL (6.3-8.2); Triglycerides 148 mg/dL (<150)
[2018-02-08 12:55] LABS: Ionized Calcium 4.7 mg/dL (4.5-5.3)
[2018-02-08] MEDS ORDERED: SENNOSIDES 8.6 MG TAB PO PRN (14:00)
[2018-02-08] MEDS ORDERED: MVI, ADULT NO.4 WITH VIT K 10 ML, TRACE (CONC-1ML/DOSE) 1 ML, PARENTERAL ELECTROLYTES 2... IV SCH ×4 (15:30)
--- NOTE | 2018-02-08 15:46 | XR ---
EXAMINATION TYPE: XR chest 2V DATE OF EXAM: 02/08/2018 COMPARISON: Chest radiograph 01/19/2018 HISTORY: Dyspnea, chest pain and concern for congestive heart failure TECHNIQUE: Frontal and lateral views of the chest are obtained. FINDINGS: There is no focal air space opacity, pleural effusion, or pneumothorax seen. The cardiac silhouette size is within normal limits. The osseous structures are intact. Left subclavian vein po rt and left-sided PICC are present. Both distal portions of these catheters terminate in the proximal SVC. Surgical clips are seen in the upper abdomen. IMPRESSION: No acute cardiopulmonary process.
[2018-02-08 17:08] LABS: Glucose,Whole Blood 99 mg/dL (75-99)
[2018-02-08] MEDS: FAT EMULSION 20% 250 ML in EMPTY BAG 1 BAG IV SCH (17:16)
[2018-02-08] MEDS: INSULIN ASPART 100 UNIT/ML 1 ML 10 ML VIAL SQ SCH (17:23)
[2018-02-08] MEDS ORDERED: MICONAZOLE NITRATE 2% CREAM 14 GM TUBE TOPICAL PRN (18:02)
[2018-02-08] MEDS ORDERED: IPRATROPIUM-ALBUTEROL 3 ML NEB INHALATION PRN (18:03)
[2018-02-08 18:57] LABS: Appearance,Urine Turbid (Clear); Bilirubin,Urine Negative (Negative); Blood,Urine Moderate (Negative); Color,Urine Yellow; Glucose,Urine (UA) Negative (Negative); Ketones,Urine Negative (Negative); Leukocyte Esterase,Urine Large (Negative); Mucus,Urine Occasional /hpf; Nitrite,Urine Negative (Negative); PH, Urine 7.5 (5.0-8.0); Protein,Urine 2+ (Negative); RBC,Urine >182 /hpf (0-5); Specific Gravity,Urine 1.016 (1.001-1.035); Squamous Epithelial Cell,Urine 2 /hpf (0-4); Urobilinogen,Urine <2.0 mg/dL (<2.0); WBC,Urine >182 /hpf (0-5)
[2018-02-08] MEDS: DOCUSATE 100 MG CAP PO SCH ×2 (19:42→20:26)
[2018-02-08 20:08] LABS: Glucose,Whole Blood 94 mg/dL (75-99)
[2018-02-08 20:59] LABS: Hemoglobin A1C 5.2 % (4.0-6.0)
[2018-02-08] MEDS: IPRATROPIUM-ALBUTEROL 3 ML NEB INHALATION SCH (21:27)
--- NOTE | 2018-02-08 22:30 | HP ---
HISTORY AND PHYSICAL CHIEF COMPLAINTS: PEG tube malfunction. HISTORY OF PRESENT ILLNESS: This 67-year-old woman with a past medical history of multiple medical problems was recently admitted to [facility] with complaints of abdominal pain. The patient had colorectal cancer on palliative care status and the patient also had colostomy. The patient had a gastrostomy tube, which is basically serves as a drainage tube. There is significant biliary drainage and the tube actually fell out apparently in the correction and the patient was taken to [facility] and was admitted for further evaluation and treatment. There is no history of fever, rigors or chills. No history of headache, loss of consciousness or seizures. The patient also had endometrial cancer apparently. The patient has opted against any treatment at this time. The patient apparently on palliative care at the [facility] at this time. The patient being followed in the outpatient setting by Dr. Brown. PAST MEDICAL HISTORY: History of endometrial cancer, history of colon cancer, CHF, hypertension, hyperlipidemia, hypothyroidism, bariatric surgery, history of anxiety and depression. MEDICATIONS: Prior to admission include home medications are: 1. Oxy IR 5 mg q.4h p.r.n. 2. Duragesic patch 150 mcg q.72 hours. 3. Senna 8.6 daily. 4. Silvadene 1 application daily p.r.n. 5. Monistat 1 q.6h p.r.n. 6. Synthroid 150 mcg p.o. daily. 7. Motrin 800 mg q.6h p.r.n. 8. Neurontin 300 mg q8h p.r.n. 9. Pepcid 20 mg p.o. b.i.d. 10.Drisdol 50,000 p.o. daily. 11.Colace 100 mg q.h.s. 12.Cardizem CD 180 mg p.o. daily. 13.Flexeril 10 mg t.i.d. p.r.n. 14.Celexa 40 mg q.h.s. p.r.n. ALLERGIES: None. FAMILY HISTORY: History of pacemaker problems in the family. SOCIAL HISTORY: No history of smoking. No history of alcohol intake. REVIEW OF SYSTEMS: ENT: No diminished hearing or vision. CARDIOVASCULAR: No angina or palpitations. RESPIRATORY: As mentioned earlier. GI: No nausea or vomiting. no dysuria. Nervous system: No numbness or weakness. ALLERGY/IMMUNOLOGY: No asthma or hayfever. MUSCULOSKELETAL: As mentioned earlier. HEMATOLOGY/ONCOLOGY: No history of anemia. ENDOCRINE: As mentioned earlier. CONSTITUTIONAL: As mentioned earlier. Dermatology: Negative. Rheumatology: Negative. Psychiatry: As mentioned earlier. PHYSICAL EXAMINATION: Alert, oriented x3. Pulse 72, blood pressure 124/70, respiration 16, temp 97.4, pulse ox 94% on room air. HEENT: Conjunctivae normal. Oral mucosa moist. NECK is no jugular venous distention. No carotid bruit. No lymph node enlargement. CARDIOVASCULAR: S1, S2 muffled. RESPIRATORY: Breath sounds diminished in the bases. A few scattered rhonchi and crackles. ABDOMEN: Soft, obese, status post PEG tube reinsertion. Otherwise the bowel sounds diminished. LEGS: Minimal edema. Nervous system: Higher functions as mentioned earlier. Moves all four extremities. No focal deficits. Lymphatics: No lymph nodes palpable in the neck, axillae or groin. SKIN: No ulcer, rash or bleeding. LABS: WBC 8.6, hemoglobin 9.2, sodium 136, otherwise albumin is 2.2. ASSESSMENT: 1. Status post dislodgement of PEG tube placement and reinsertion. 2. History of endometrial adenocarcinoma and as well as metastatic colon cancer on palliative care. 3. History of congestive heart failure. 4. Hypertension. 5. History of degenerative joint disease. 6. History of sleep apnea. 7. History hypothyroidism. 8. History of bariatric surgery. 9. Bowel resection. 10.History of hernia repair. 11.History of gastric stapling. 12.History of anxiety, depression. 13.FULL CODE. 14.Obesity. 15.On TPN. RECOMMENDATIONS AND DISCUSSION: This 67-year-old woman who presented with multiple complex medical issues. We will monitor the patient closely. Continue the current medications, management and symptomatic treatment. We will continue with TPN. The PEG tube is not meant for any feeding purposes at this time. Resume the home medications. DVT prophylaxis. We will continue to monitor, symptomatic treatment will be provided. See orders for details. Prognosis guarded because of multiple complex medical issues. Further recommendations to follow. Discussed with the patient and as well as the family also. Further recommendations to follow. See orders for details. MMODL / IJN: [id number] /
[2018-02-09 00:08] LABS: Glucose,Whole Blood 82 mg/dL (75-99)
[2018-02-09] MEDS: INSULIN ASPART 100 UNIT/ML 1 ML 10 ML VIAL SQ SCH ×4 (00:08→17:33)
[2018-02-09] MEDS: IBUPROFEN 800 MG TAB PO PRN ×3 (02:18→23:29)
[2018-02-09 05:43] LABS: Glucose,Whole Blood 92 mg/dL (75-99)
[2018-02-09] MEDS: LEVOTHYROXINE 75 MCG TAB PO SCH (06:12)
[2018-02-09 07:26] LABS: ALT 18 U/L (9-52); AST 21 U/L (14-36); Albumin 2.2 g/dL (3.5-5.0); Alkaline Phosphatase 180 U/L (38-126); Anion Gap 6 mmol/L; Blood Urea Nitrogen 18 mg/dL (7-17); Calcium 7.7 mg/dL (8.4-10.2); Carbon Dioxide 28 mmol/L (22-30); Chloride 104 mmol/L (98-107); Glucose 86 mg/dL (74-99); Magnesium 1.9 mg/dL (1.6-2.3); Phosphorus 4.6 mg/dL (2.5-4.5); Potassium 4.1 mmol/L (3.5-5.1); Sodium 138 mmol/L (137-145); Total Bilirubin 0.4 mg/dL (0.2-1.3); Total Protein 5.2 g/dL (6.3-8.2)
[2018-02-09] MEDS: IPRATROPIUM-ALBUTEROL 3 ML NEB INHALATION SCH ×3 (08:09→21:58)
[2018-02-09 08:13] LABS: Basophils % (A) 0 %; Eosinophils # (A) 0.1 k/uL (0-0.7); Eosinophils % (A) 1 %; HCT 26.3 % (34.0-46.0); HGB 8.7 gm/dL (11.4-16.0); Lymphocytes # (A) 2.1 k/uL (1.0-4.8); Lymphocytes % (A) 27 %; MCH 32.4 pg (25.0-35.0); MCHC 33.1 g/dL (31.0-37.0); MCV 97.7 fL (80.0-100.0); Mean Platelet Volume 7.8; Monocytes # (A) 0.8 k/uL (0-1.0); Monocytes % (A) 10 %; Neutrophils # (A) 4.4 k/uL (1.3-7.7); Neutrophils % (A) 58 %; Platelet Count 405 k/uL (150-450); RBC 2.69 m/uL (3.80-5.40); RDW 14.2 % (11.5-15.5); WBC 7.6 k/uL (3.8-10.6)
[2018-02-09] MEDS: FAMOTIDINE 20 MG TAB PO SCH ×2 (09:05→20:59)
[2018-02-09] MEDS: GABAPENTIN 300 MG CAP PO SCH ×3 (09:05→23:30)
[2018-02-09] MEDS: DOCUSATE 100 MG CAP PO SCH ×4 (09:05→20:58)
[2018-02-09] MEDS: MAGNESIUM SULFATE-D5W PMX 1 GM in DEXTROSE/WATER 1 100ML.BAG IVPB SCH ×2 (09:35→11:20)
--- NOTE | 2018-02-09 10:14 | P.PN ---
Subjective Progress Note Date: 02/09/18 Principal diagnosis: Malfunctioning G-tube No seen in drainage around the gastrostomy tube since it was placed yesterday. She has had some thickened drainage however and this may be in part related to the patient's recent diet initiation. She has had some stools in the ostomy bag as well. Denies abdominal pain. Objective - Vital Signs Vital signs: Vital Signs Temp 98.2 F 02/09/18 05:00 Pulse 84 02/09/18 08:20 Resp 16 02/09/18 05:00 BP 92/51 02/09/18 05:00 Pulse Ox 95 02/09/18 05:00 Intake & Output 02/08/18 02/09/18 02/09/18 18:59 06:59 18:59 Intake Total 120 Output Total 1600 550 400 Balance -1600 -430 -400 Weight 108.862 kg 103 kg Intake: Oral 120 Output: Gastric Drainage 300 Urine 1300 550 400 Other: Voiding Method Indwelling Catheter Indwelling Catheter Indwelling Catheter - Exam Abdomen: Soft, nondistended, nontender, gastrostomy tube in place, left lower quadrant ostomy with some stool present - Labs CBC & Chem 7: 02/09/18 06:46 02/09/18 06:46 Labs: Abnormal Lab Results - Last 24 Hours (Table) 02/08/18 02/08/18 02/09/18 Range/Units 11:32 18:36 06:46 RBC (3.80-5.40) m/uL Hgb (11.4-16.0) gm/dL Hct (34.0-46.0) % Carbon Dioxide 31 H (22-30) mmol/L BUN 20 H 18 H (7-17) mg/dL Calcium 7.8 L 7.7 L (8.4-10.2) mg/dL Phosphorus 4.9 H 4.6 H (2.5-4.5) mg/dL Alkaline Phosphatase 172 H 180 H (38-126) U/L Total Protein 4.9 L 5.2 L (6.3-8.2) g/dL Albumin 2.1 L 2.2 L (3.5-5.0) g/dL Urine Appearance Turbid H (Clear) Urine Protein 2+ H (Negative) Urine Blood Moderate H (Negative) Ur Leukocyte Esterase Large H (Negative) Urine RBC >182 H (0-5) /hpf Urine WBC >182 H (0-5) /hpf Urine WBC Clumps Many H (None) /hpf Urine Mucus Occasional H (None) /hpf 02/09/18 Range/Units 06:46 RBC 2.69 L (3.80-5.40) m/uL Hgb 8.7 L (11.4-16.0) gm/dL Hct 26.3 L (34.0-46.0) % Carbon Dioxide (22-30) mmol/L BUN (7-17) mg/dL Calcium (8.4-10.2) mg/dL Phosphorus (2.5-4.5) mg/dL Alkaline Phosphatase (38-126) U/L Total Protein (6.3-8.2) g/dL Albumin (3.5-5.0) g/dL Urine Appearance (Clear) Urine Protein (Negative) Urine Blood (Negative) Ur Leukocyte Esterase (Negative) Urine RBC (0-5) /hpf Urine WBC (0-5) /hpf Urine WBC Clumps (None) /hpf Urine Mucus (None) /hpf Assessment and Plan (1) Malfunction of gastrostomy tube Narrative/Plan: Will start flushing the patient's gastrostomy tube as she states that it has at times become plugged up. Other than that would defer management of the patient' s chronic obstruction to [facility] [employer]/ONC team. Current Visit: Yes Status: Acute Code(s): K94.23 - GASTROSTOMY MALFUNCTION SNOMED Code(s): 985637630
--- NOTE | 2018-02-09 11:12 | P.CONS ---
History of Present Illness - Reason for Consult Consult date: 02/09/18 endometrial metastatic malignancy Requesting physician: Padilla Dixon - Chief Complaint GI decompression tube dislodged - History of Present Illness Ms. King is a pleasant female patient of Dr. Rao who is currently receiving supportive care and pain management for metastatic endometrial cancer. She was brought to the hospital due to dislodgment of a GI drainage catheter. Patient states that she was attempting to work with physical therapy , she raised her hands up above her shoulders to grab a hold of the walker and when she pulled up the drainage tube fell out. Patient states that typically the drainage tube is flushed, this had not been done for the prior 3 days. When the tube dislodged there was rather large amounts of bilious drainage ( patient estimates about 300 mL) that drained out. New tube has been placed by Dr. Marquez. It is currently draining well. Patient is denying fevers, chills, abdominal pain, nausea or vomiting, Bustamante catheter is in place and draining urine, patient has rectovaginal fistula. She is denying any current bleeding, she does have occasional vaginal bleeding. Her pain is well managed at this time on current analgesic regimen She has semi-formed stool in her ostomy, states only time there is stool from her ostomy is when she receives TPN. No other complaints on a 14 point review of systems. Malignancy History: Pt presented in 07/25 with c/o blood tinged discharge from vagina, had endometrial biopsy, positive for endometrial cancer. Surgery was planned. CT showed uterus to be mildly prominent with thickened endometrial stripe at 2.1 cm, no other mass lesions, omental changes or adenopathy was noted. Surgery planned for August but, this was postponed. Attempted surgery on 10/13/16, tumor was locally extensive involving the urinary bladder, the sigmoid colon, as well as the left ureter causing hydronephrosis, surgery was aborted. Peritoneal washings were negative for malignancy. CT CAP 10/24/16 confirmed a large cystic and solid mass centered within the uterus with invasion of the urinary bladder and sigmoid colon, with obstructive left hydronephrosis, no pelvic adenopathy, PET scan which showed uptake in this mass, as well as apparently in a para- aortic node. Seen Medical Oncology, Dr. Mcfarlane and [facility], , in [place]. Andrzej-adjuvant chemotherapy was recommended, treated with Carbo and Taxol. She developed recto/vaginal fistula. Dr. Arteaga decided to proceed to surgery on 01/11/17 and to stop chemo. She had surgery on 01/15/17, with a permanent colostomy. There was a large amount of tumor behind the urinary bladder, with trapping of the ureter, this was fixed and could not be resected, she had resection of the uterus and the rectosigmoid mass, along with placement of bilateral ureteral stents. Lymph node dissection could not be done. 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 Malignancy is complicated with residual tumor and nodes noted on PET. She elected against any further active treatment. She had emergency hernia surgery in 08/26, due to her abdominal hernia obstructing her ostomy. She had MRI and biopsy in 11/26 , showing progression, with the pathology too poorly differentiated to distinguish the primary. She has history of Michael-en-Y bypass with iron and B12 deficiency and has been on parenteral supplementation. One month ago patient was admitted for small bowel obstruction, treated conservatively with resolution. Suspect related to disease. Review of Systems 14 point review of systems is negative except as stated in HPI Past Medical History Past Medical History: Blood Disorder, Cancer, Heart Failure, Hearing Disorder / Deafness, Hypertension, Osteoarthritis (OA), Sleep Apnea/CPAP/BIPAP, Thyroid Disorder Additional Past Medical History / Comment(s): Pt stated that she has enlarged heart and two leaky valves. ENDOMETRIAL AND COLON CANCER. History of Any Multi-Drug Resistant Organisms: None Reported Past Surgical History: Bariatric Surgery, Bladder Surgery, Bowel Resection, Hernia Repair, Hysterectomy, Tonsillectomy, Tubal Ligation Additional Past Surgical History / Comment(s): Gastric Stapling 1978, pilonidal cyst removed pain associated with knees. D&C, MICHAEL-EN-Y,SUBTOTAL GASTRECTOMY, EGD. 2 URINARY STENTS. COLOSTOMY. gastric tube. Past Anesthesia/Blood Transfusion Reactions: Motion Sickness Past Psychological History: Anxiety, Depression Additional Psychological History / Comment(s): Pt stated that she has taken anti -depressants for 30 years off and on. Smoking Status: Never smoker Past Alcohol Use History: None Reported Past Drug Use History: None Reported - Past Family History Mother Family Medical History: Neurologic Disorder Additional Family Medical History / Comment(s): PACEMAKER, [employer] Father Family Medical History: Myocardial Infarction (SD) Additional Family Medical History / Comment(s): AFTER HAVING HIS 3RD SD Medications and Allergies Home Medications Medication Instructions Recorded Confirmed Type Levothyroxine Sodium [Synthroid] 150 mcg PO DAILY 11/26/14 02/07/18 History Diltiazem Cd [Cardizem CD] 120 mg PO DAILY PRN MDD OVER 120 01/13/18 02/07/18 History SILVER sulfADIAZINE Cream 1 applic TOPICAL DAILY PRN 01/13/18 02/07/18 History [Silvadene 1% Cream] Citalopram Hydrobromide [CeleXA] 40 mg PO HS PRN 02/07/18 02/07/18 History Cyclobenzaprine [Flexeril] 10 mg PO Q8HR PRN 02/07/18 02/07/18 History Docusate [Colace] 100 mg PO PCHS 02/07/18 02/07/18 History Ergocalciferol [Vitamin D2 50,000 unit PO WE 02/07/18 02/07/18 History (DRISDOL)] Famotidine [Pepcid] 20 mg PO BID 02/07/18 02/07/18 History Gabapentin [Neurontin] 300 mg PO Q8HR 02/07/18 02/07/18 History Ibuprofen [Motrin] 800 mg PO Q6H PRN 02/07/18 02/07/18 History Miconazole 2% Cream [Monistat-Derm] 1 applic VAGINAL Q6HR PRN 02/07/18 02/07/18 History Sennosides [Senna] 8.6 mg PO DAILY@1400 PRN 02/07/18 02/07/18 History fentaNYL 100MCG/HR PATCH 100 mcg TRANSDERM Q72H 02/07/18 02/07/18 History [Duragesic 100MCG/HR] fentaNYL 50MCG/HR PATCH [Duragesic 50 mcg TRANSDERM Q72H 02/07/18 02/07/18 History 50MCG/HR] oxyCODONE HCL [OxyIR] 5 mg PO Q4HR 02/07/18 02/07/18 History Allergies Allergy/AdvReac Type Severity Reaction Status Date / Time No Known Allergies Allergy Verified 02/07/18 20:05 Physical Exam Vitals: Vital Signs Temp Pulse Pulse Resp BP Pulse Ox 02/09/18 08:20 84 02/09/18 08:11 90 02/09/18 05:00 98.2 F 89 16 92/51 95 02/08/18 23:00 16 02/08/18 21:38 72 02/08/18 21:30 98.1 F 84 16 100/50 94 L 02/08/18 21:29 72 02/08/18 12:02 97.5 F L 72 16 124/76 95 Intake and Output 02/08/18 02/09/18 02/09/18 22:59 06:59 14:59 Intake Total 120 Output Total 600 550 400 Balance -480 -550 -400 Intake: Oral 120 Output: Gastric Drainage 300 Urine 300 550 400 Other: Voiding Method Indwelling Catheter Indwelling Catheter Weight 103 kg - Constitutional General appearance: cooperative, morbidly obese, no acute distress - EENT Eyes: anicteric sclerae, EOMI ENT: hearing grossly normal - Neck Neck: no lymphadenopathy - Respiratory Respiratory: bilateral: rhonchi (Anterior) - Cardiovascular Rhythm: regular Heart sounds: normal: S1, S2 Abnormal Heart Sounds: no systolic murmur, no diastolic murmur, no rub, no S3 Gallop, no S4 Gallop, no click, no other leg Peripheral Edema: bilateral: None - Gastrointestinal Right upper quadrant tube draining bilious fluid. Left lower quadrant ostomy, semi-formed, soft, brown stool General gastrointestinal: no absent bowel sounds, no decreased bowel sounds, no distended, no hepatomegaly, no hyperactive bowel sounds, normal bowel sounds, no organomegaly, no rigid, no scaphoid, soft, no splenomegaly, tenderness, no umbilical hernia, no ventral hernia - Integumentary Integumentary: pale - Neurologic Neurologic: CNII-XII intact - Musculoskeletal Musculoskeletal: generalized weakness, strength equal bilaterally - Psychiatric Psychiatric: A&O x's 3, appropriate affect, intact judgment & insight Results CBC & Chem 7: 02/09/18 06:46 02/09/18 06:46 Labs: Abnormal Lab Results - Last 24 Hours (Table) 02/08/18 02/08/18 02/09/18 Range/Units 11:32 18:36 06:46 RBC (3.80-5.40) m/uL Hgb (11.4-16.0) gm/dL Hct (34.0-46.0) % Carbon Dioxide 31 H (22-30) mmol/L BUN 20 H 18 H (7-17) mg/dL Calcium 7.8 L 7.7 L (8.4-10.2) mg/dL Phosphorus 4.9 H 4.6 H (2.5-4.5) mg/dL Alkaline Phosphatase 172 H 180 H (38-126) U/L Total Protein 4.9 L 5.2 L (6.3-8.2) g/dL Albumin 2.1 L 2.2 L (3.5-5.0) g/dL Urine Appearance Turbid H (Clear) Urine Protein 2+ H (Negative) Urine Blood Moderate H (Negative) Ur Leukocyte Esterase Large H (Negative) Urine RBC >182 H (0-5) /hpf Urine WBC >182 H (0-5) /hpf Urine WBC Clumps Many H (None) /hpf Urine Mucus Occasional H (None) /hpf 02/09/18 Range/Units 06:46 RBC 2.69 L (3.80-5.40) m/uL Hgb 8.7 L (11.4-16.0) gm/dL Hct 26.3 L (34.0-46.0) % Carbon Dioxide (22-30) mmol/L BUN (7-17) mg/dL Calcium (8.4-10.2) mg/dL Phosphorus (2.5-4.5) mg/dL Alkaline Phosphatase (38-126) U/L Total Protein (6.3-8.2) g/dL Albumin (3.5-5.0) g/dL Urine Appearance (Clear) Urine Protein (Negative) Urine Blood (Negative) Ur Leukocyte Esterase (Negative) Urine RBC (0-5) /hpf Urine WBC (0-5) /hpf Urine WBC Clumps (None) /hpf Urine Mucus (None) /hpf Chest x-ray: report reviewed Assessment and Plan (1) Malfunction of gastrostomy tube Narrative/Plan: This is the reason for patient admission. Tube has been replaced. Appears to be draining well. Current Visit: Yes Status: Acute Priority: High Code(s): K94.23 - GASTROSTOMY MALFUNCTION SNOMED Code(s): 413539865 (2) Pain of metastatic malignancy Narrative/Plan: Patient does continue to see Dr. Rao for pain management. Patient states current analgesic regimen adequate. Patient also encouraged to continue bowel regimen for prevention of narcotic- induced constipation. Current Visit: Yes Status: Chronic Priority: High Code(s): G89.3 - NEOPLASM RELATED PAIN (ACUTE) (CHRONIC) SNOMED Code(s): 791085619 (3) Anemia Narrative/Plan: This is of new onset for patient. Suspect deficiency as patient does have episodes of vaginal bleeding. Anemia workup ordered. Supplementation will be ordered based on deficiencies. Current Visit: Yes Status: Acute Priority: High Code(s): D64.9 - ANEMIA, UNSPECIFIED SNOMED Code(s): 926828113 (4) Endometrial adenocarcinoma Narrative/Plan: Continue with supportive care as well as pain management. Current Visit: No Status: Chronic Priority: Medium Code(s): C54.1 - MALIGNANT NEOPLASM OF ENDOMETRIUM SNOMED Code(s): 622356815
[2018-02-09 11:22] LABS: Glucose,Whole Blood 135 mg/dL (75-99)
[2018-02-09] MEDS: CYCLOBENZAPRINE 10 MG TAB PO PRN ×2 (14:25→23:38)
[2018-02-09 14:30] LABS: Glucose,Whole Blood 118 mg/dL (75-99)
[2018-02-09] MEDS: 1: MVI, ADULT NO.4 WITH VIT K 10 ML, TRACE (CONC-1ML/DOSE) 1 ML, PARENTERAL ELECTROLYTES IV SCH ×4 (16:08)
[2018-02-09 17:08] LABS: Glucose,Whole Blood 162 mg/dL (75-99)
[2018-02-09] MEDS: FAT EMULSION 20% 250 ML in EMPTY BAG 1 BAG IV SCH (17:34)
--- NOTE | 2018-02-09 18:46 | PN ---
PROGRESS NOTE DATE OF SERVICE: 02/09/2018 This 64-year-old woman who was admitted with a PEG tube dislodgement is being closely monitored. Patient also had features of UTI. Patient has multiple complex medical issues. The patient also has some cough at this time. Multiple consultants are following the patient closely. Originally the patient had features of metastatic endometrial cancer and as well as history of colon cancer also. The GI drainage catheter has been replaced by Dr. Marquez at this time. PAST MEDICAL HISTORY: Reviewed. REVIEW OF SYSTEMS: CARDIOVASCULAR: No angina or palpitations. Respiration: As mentioned earlier. GI mentioned earlier. : No dysuria. Central nervous system: No numbness or weakness. CURRENT MEDICATIONS ARE: Noted and include: 1. DuoNeb q.i.d. and p.r.n. 2. Rocephin 1 g daily. 3. Celexa 40 mg q.h.s. 4. Flexeril 10 mg q.p.m. 5. Cardizem 120 mg daily. 6. Colace 100 mg q.h.s. 7. Vitamin D2 50,000 p.o. Saturday. 8. Pepcid 20 mg daily. 9. TPN. 10.Duragesic patch 150 mcg daily. 11.Neurontin 300 mg. 12.Motrin. 13.NovoLog scale. 14.Synthroid. 15.Narcan. 16.Oxy IR. 18.Silvadene. PHYSICAL EXAM: Patient is alert, oriented. Pulse is 86. Blood pressure 113/56, respirations 16, temperature normal, pulse ox 98% on room air. HEENT: Conjunctivae normal. Oral mucosa moist. Neck is no jugular venous distention. No carotid bruit. No lymph node enlargement. RESPIRATORY SYSTEM: Breath sounds diminished at the bases. A few scattered rhonchi and crackles. ABDOMEN: Soft, nontender. No mass palpable. Legs: No edema. No swelling. CENTRAL NERVOUS SYSTEM: Higher functions as mentioned earlier. Moves all 4 limbs. ABDOMEN: Soft. Gastric drainage to be sensitive. Otherwise legs no edema. No swelling. Central nervous system: No focal deficits. Colostomy also present. ASSESSMENT: 1. Status post dislodgement of the G-tube and reinsertion. 2. History of endometrial adenocarcinoma, metastatic as well as history of metastatic colon cancer on palliative care. 3. History of congestive heart failure. 4. On TPN. 5. Hypertension. 6. History of degenerative joint disease. 7. Urinary tract infection. 8. History of sleep apnea. 9. Hypothyroidism. 10.History of bariatric surgery. 11.History of bowel resection. 12.History of hernia repair. 13.History of gastric stapling. 14.History anxiety and depression. 15.Obesity. 16.Possible chronic bronchitis. 17.FULL CODE. RECOMMENDATIONS AND DISCUSSION: In this 67-year-old woman who presented with multiple complex medical issues, we will monitor the patient closely. Continue the current medications, management and symptomatic treatment. Continue with TPN at this time. Otherwise, continue with bronchodilators. Repeat labs and I would also recommend empiric antibiotics and set of cultures as well to rule out the possibility of UTI. Prognosis extremely guarded because of multiple complex medical issues. Further recommendations to follow. BART / MINDYN: [id number] / LIAN
[2018-02-10 00:27] LABS: Glucose,Whole Blood 128 mg/dL (75-99)
[2018-02-10] MEDS: INSULIN ASPART 100 UNIT/ML 1 ML 10 ML VIAL SQ SCH ×3 (00:56→12:10)
[2018-02-10] MEDS: 1: MVI, ADULT NO.4 WITH VIT K 10 ML, TRACE (CONC-1ML/DOSE) 1 ML, PARENTERAL ELECTROLYTES IV SCH ×4 (03:55)
[2018-02-10] MEDS: LEVOTHYROXINE 75 MCG TAB PO SCH (06:06)
[2018-02-10] MEDS: IBUPROFEN 800 MG TAB PO PRN (06:06)
[2018-02-10 06:07] LABS: Glucose,Whole Blood 113 mg/dL (75-99)
[2018-02-10] MEDS: GABAPENTIN 300 MG CAP PO SCH (07:29)
[2018-02-10] MEDS: FAMOTIDINE 20 MG TAB PO SCH (07:29)
[2018-02-10] MEDS: DOCUSATE 100 MG CAP PO SCH ×2 (07:29→14:25)
[2018-02-10] MEDS: IPRATROPIUM-ALBUTEROL 3 ML NEB INHALATION SCH ×2 (08:30→14:16)
[2018-02-10 10:26] LABS: Basophils % (A) 0 %; Eosinophils # (A) 0.1 k/uL (0-0.7); Eosinophils % (A) 1 %; HGB 9.6 gm/dL (11.4-16.0); Hypochromasia Slight; Lymphocytes # (A) 1.6 k/uL (1.0-4.8); Lymphocytes % (A) 23 %; MCH 31.7 pg (25.0-35.0); MCHC 32.1 g/dL (31.0-37.0); MCV 98.9 fL (80.0-100.0); Mean Platelet Volume 7.1; Monocytes # (A) 0.5 k/uL (0-1.0); Monocytes % (A) 8 %; Neutrophils # (A) 4.6 k/uL (1.3-7.7); Neutrophils % (A) 66 %; Platelet Count 358 k/uL (150-450); RBC 3.03 m/uL (3.80-5.40); RDW 13.8 % (11.5-15.5); WBC 6.9 k/uL (3.8-10.6)
[2018-02-10] MEDS: CYCLOBENZAPRINE 10 MG TAB PO PRN (10:38)
[2018-02-10 10:43] LABS: ALT 21 U/L (9-52); AST 20 U/L (14-36); Albumin 2.4 g/dL (3.5-5.0); Alkaline Phosphatase 185 U/L (38-126); Anion Gap 5 mmol/L; Blood Urea Nitrogen 20 mg/dL (7-17); Carbon Dioxide 29 mmol/L (22-30); Chloride 104 mmol/L (98-107); Glucose 103 mg/dL (74-99); Phosphorus 4.1 mg/dL (2.5-4.5); Potassium 4.3 mmol/L (3.5-5.1); Sodium 138 mmol/L (137-145); Total Bilirubin 0.3 mg/dL (0.2-1.3); Total Protein 5.5 g/dL (6.3-8.2)
--- NOTE | 2018-02-10 10:54 | P.DS ---
Providers Date of admission: 02/07/18 22:10 Attending physician: Padilla Dixon Consults: 02/08/18 04:37 Consult Physician Routine Consulting Provider: Pipe Arboleda Consult Reason/Comments: gastric tube malfunction Do you want consulting provider notified?: Yes 02/08/18 14:06 Consult Physician Routine Consulting Provider: Doug Rao Consult Reason/Comments: Known hx of endometrial and colorectal cancer Do you want consulting provider notified?: Already Contacted Primary care physician: Stephanie Rider [facility] Course: Final diagnosis Status post dislodging note for GI drainage catheter and replacement. History of metastatic endometrial adenocarcinoma on palliative care. History of for colon cancer History of CHF On TPN Hypertension History of DJD UTI Bronchitis History of sleep apnea Hypothyroidism History of bariatric surgery History bowel resection History of hernia repair History gastric stapling History of anxiety depression Obesity Discharge disposition patient be discharged in a stable condition with guarded prognosis to [facility]. Total time taken 35 minutes. Continue the current palliative care. Prognosis guarded. Still present illness this 67-year-old woman with a past medical history multiple compress medical issues as mentioned earlier being followed in the [facility] was admitted with the GI drainage tube with displacement. The patient wasn on palliative care for metastatic endometrial carcinoma. The GI drainage tube was replaced by Dr. Marquez. The patient was continue the TPN. Patient also had a features are UTI. Treated with antibiotics. Patient also had features of bronchitis. Bronchodilators given. Overall patient may significant improvement. Patient be discharged in a stable condition with guarded prognosis. On exam vitals are stable. Cardio S1 and S2 normal. Respirator system few scattered rhonchi and crackles. Abdomen soft colostomy and gastric darinage catheter present nervous system no focal deficit. Patient Condition at Discharge: Fair Plan - Discharge Summary Discharge Rx Participant: No New Discharge Prescriptions: New Cefuroxime Oral Susp [Ceftin Susp] 250 mg PO BID #50 ml Ipratropium-Albuterol Nebulize [Duoneb 0.5 mg-3 mg/3 ml Soln] 3 ml INHALATION RT-TID ampul.neb Ipratropium-Albuterol Nebulize [Duoneb 0.5 mg-3 mg/3 ml Soln] 3 ml INHALATION RT-TID PRN ampul.neb PRN Reason: Shortness Of Breath Or Wheezing Continue Levothyroxine Sodium [Synthroid] 150 mcg PO DAILY SILVER sulfADIAZINE Cream [Silvadene 1% Cream] 1 applic TOPICAL DAILY PRN PRN Reason: Rash Diltiazem Cd [Cardizem CD] 120 mg PO DAILY PRN MDD OVER 120 PRN Reason: Blood Pressure - High Miconazole 2% Cream [Monistat-Derm] 1 applic VAGINAL Q6HR PRN PRN Reason: Itching Ibuprofen [Motrin] 800 mg PO Q6H PRN PRN Reason: Pain fentaNYL 100MCG/HR PATCH [Duragesic 100MCG/HR] 100 mcg TRANSDERM Q72H Cyclobenzaprine [Flexeril] 10 mg PO Q8HR PRN PRN Reason: CRAMP AND MUSCLE SPASM Gabapentin [Neurontin] 300 mg PO Q8HR Famotidine [Pepcid] 20 mg PO BID Ergocalciferol [Vitamin D2 (DRISDOL)] 50,000 unit PO WE Sennosides [Senna] 8.6 mg PO DAILY@1400 PRN PRN Reason: Constipation Docusate [Colace] 100 mg PO PCHS Citalopram Hydrobromide [CeleXA] 40 mg PO HS PRN PRN Reason: DEPRESSION fentaNYL 50MCG/HR PATCH [Duragesic 50MCG/HR] 50 mcg TRANSDERM Q72H #1 patch oxyCODONE HCL [OxyIR] 5 mg PO Q4HR #10 tab Discharge Medication List Levothyroxine Sodium [Synthroid] 150 mcg PO DAILY 11/26/14 [History] Diltiazem Cd [Cardizem CD] 120 mg PO DAILY PRN MDD OVER 120 01/13/18 [History] SILVER sulfADIAZINE Cream [Silvadene 1% Cream] 1 applic TOPICAL DAILY PRN [History] Citalopram Hydrobromide [CeleXA] 40 mg PO HS PRN 02/07/18 [History] Cyclobenzaprine [Flexeril] 10 mg PO Q8HR PRN 02/07/18 [History] Docusate [Colace] 100 mg PO PCHS 02/07/18 [History] Ergocalciferol [Vitamin D2 (DRISDOL)] 50,000 unit PO WE 02/07/18 [History] Famotidine [Pepcid] 20 mg PO BID 02/07/18 [History] Gabapentin [Neurontin] 300 mg PO Q8HR 02/07/18 [History] Ibuprofen [Motrin] 800 mg PO Q6H PRN 02/07/18 [History] Miconazole 2% Cream [Monistat-Derm] 1 applic VAGINAL Q6HR PRN 02/07/18 [History] Sennosides [Senna] 8.6 mg PO DAILY@1400 PRN 02/07/18 [History] fentaNYL 100MCG/HR PATCH [Duragesic 100MCG/HR] 100 mcg TRANSDERM Q72H 02/07/18 [ History] Cefuroxime Oral Susp [Ceftin Susp] 250 mg PO BID #50 ml 02/10/18 [Rx] Ipratropium-Albuterol Nebulize [Duoneb 0.5 mg-3 mg/3 ml Soln] 3 ml INHALATION RT -TID ampul.neb 02/10/18 [Rx] Ipratropium-Albuterol Nebulize [Duoneb 0.5 mg-3 mg/3 ml Soln] 3 ml INHALATION RT -TID PRN ampul.neb 02/10/18 [Rx] fentaNYL 50MCG/HR PATCH [Duragesic 50MCG/HR] 50 mcg TRANSDERM Q72H #1 patch 05/26 [Rx] oxyCODONE HCL [OxyIR] 5 mg PO Q4HR #10 tab 02/10/18 [Rx] Follow up Appointment(s)/Referral(s): Tereso Brown MD [Primary Care Provider] - 1-2 days Activity/Diet/Wound Care/Special Instructions: Per Dr. Zack ABD Binder with activity/getting out of bed. Barrier cream around gastrostomy tube PRN for drainage, thin split guaze around g tube then reinforce with ABD or guaze over the tube PRN for drainage, change when soiled.
[2018-02-10 11:11] LABS: Glucose,Whole Blood 107 mg/dL (75-99)
[2018-02-10 12:25] VITALS: BP 111/56; TEMP 98
[2018-02-10 14:27] VITALS: PULSE 88
[2018-02-10 16:59] LABS: Iron Saturation 13.57 (12.00-45.00)
[2018-02-12] MEDS ORDERED: ERGOCALCIFEROL 50,000 UNIT CAP PO SCH (09:00)
== END 2018-02-10 14:50 ==
LOC: EC 19:35 → 3NMEDONC 22:10
PROVIDERS: ADMIT Hospitalist; ATTEND Hospitalist
DX: K94.23 Gastrostomy malfunction (principal); D64.9 Anemia, unspecified; E03.9 Hypothyroidism, unspecified; E66.9 Obesity, unspecified; E78.5 Hyperlipidemia, unspecified; G47.30 Sleep apnea, unspecified; I11.0 Hypertensive heart disease with heart failure; I50.9 Heart failure, unspecified; Z98.84 Bariatric surgery status; Z79.890 Hormone replacement therapy; Z93.3 Colostomy status; G89.3 Neoplasm related pain (acute) (chronic); Z51.5 Encounter for palliative care; C19 Malignant neoplasm of rectosigmoid junction; C54.1 Malignant neoplasm of endometrium; H91.90 Unspecified hearing loss, unspecified ear; J40 Bronchitis, not specified as acute or chronic; N39.0 Urinary tract infection, site not specified; Z90.710 Acquired absence of both cervix and uterus; Z90.49 Acquired absence of other specified parts of digestive tract; Z82.49 Family history of ischemic heart disease and other diseases of the circulatory system; Z82.0 Family history of epilepsy and other diseases of the nervous system
CPT/HCPCS: 96365; 96366 ×3; 96367; 96368; 99285; 94640 ×5; 97530; 97161; 82747; 80053 ×4; 82330; 82607; 82728; 83540; 83550; 83735 ×3; 84100 ×3; 84478; 85025 ×3; 81001; 87040; 87086; 83036; 71046; G0378 ×4; J0696 ×2; J3475

== ENCOUNTER 2018-02-15 01:22 | Emergency (ER) | payer MEDICARE, OTHER ==
[2018-02-15 01:25] VITALS: RESP 16; TEMP 98.9
--- NOTE | 2018-02-15 02:21 | ED ---
Recheck HPI - General Chief Complaint: Recheck/Abnormal Lab/Rx Stated Complaint: PEG tube Source: patient, EMS Mode of arrival: EMS Limitations: no limitations - History of Present Illness Initial Comments: 67yo female with PMH of stage IV endometrial cancer presenting today for cc of gastrotomy tube leakage. Pt recently had tube torn out at physical therapy appointment. It was replaced on February [address] Marquez. Pt states that for the past 12 hours it has been leaking. There is output in bag, appears to be draining appropriately. Patient denies any redness, increased tenderness, fever , chills or night sweats. Patient [facility]. Remainder of ROS (-), patient denies any recent shortness of breath, chest pain , back pain, abdominal pain, nausea or vomiting, numbness or tingling, dysuria or hematuria, constipation or diarrhea, headaches or visual changes, or any other complaints. Upon arrival pt afebrile, pt appears well. - Related Data Home Medications Medication Instructions Recorded Confirmed Levothyroxine Sodium [Synthroid] 150 mcg PO DAILY 11/26/14 02/07/18 Diltiazem Cd [Cardizem CD] 120 mg PO DAILY PRN MDD OVER 120 01/13/18 02/07/18 SILVER sulfADIAZINE Cream 1 applic TOPICAL DAILY PRN 01/13/18 02/07/18 [Silvadene 1% Cream] Citalopram Hydrobromide [CeleXA] 40 mg PO HS PRN 02/07/18 02/07/18 Cyclobenzaprine [Flexeril] 10 mg PO Q8HR PRN 02/07/18 02/07/18 Docusate [Colace] 100 mg PO PCHS 02/07/18 02/07/18 Ergocalciferol [Vitamin D2 50,000 unit PO WE 02/07/18 02/07/18 (DRISDOL)] Famotidine [Pepcid] 20 mg PO BID 02/07/18 02/07/18 Gabapentin [Neurontin] 300 mg PO Q8HR 02/07/18 02/07/18 Ibuprofen [Motrin] 800 mg PO Q6H PRN 02/07/18 02/07/18 Miconazole 2% Cream [Monistat-Derm] 1 applic VAGINAL Q6HR PRN 02/07/18 02/07/18 Sennosides [Senna] 8.6 mg PO DAILY@1400 PRN 02/07/18 02/07/18 fentaNYL 100MCG/HR PATCH 100 mcg TRANSDERM Q72H 02/07/18 02/07/18 [Duragesic 100MCG/HR] Previous Rx's Medication Instructions Recorded Cefuroxime Oral Susp [Ceftin Susp] 250 mg PO BID #50 ml 02/10/18 Ipratropium-Albuterol Nebulize 3 ml INHALATION RT-TID ampul.neb 02/10/18 [Duoneb 0.5 mg-3 mg/3 ml Soln] Ipratropium-Albuterol Nebulize 3 ml INHALATION RT-TID PRN 02/10/18 [Duoneb 0.5 mg-3 mg/3 ml Soln] ampul.neb fentaNYL 50MCG/HR PATCH [Duragesic 50 mcg TRANSDERM Q72H #1 patch 02/10/18 50MCG/HR] oxyCODONE HCL [OxyIR] 5 mg PO Q4HR #10 tab 02/10/18 Allergies Allergy/AdvReac Type Severity Reaction Status Date / Time No Known Allergies Allergy Verified 02/07/18 20:05 Review of Systems ROS Statement: Those systems with pertinent positive or pertinent negative responses have been documented in the HPI. ROS Other: All systems not noted in ROS Statement are negative. Past Medical History Past Medical History: Blood Disorder, Cancer, Heart Failure, Hearing Disorder / Deafness, Hypertension, Osteoarthritis (OA), Sleep Apnea/CPAP/BIPAP, Thyroid Disorder Additional Past Medical History / Comment(s): Pt stated that she has enlarged heart and two leaky valves. ENDOMETRIAL AND COLON CANCER. History of Any Multi-Drug Resistant Organisms: None Reported Past Surgical History: Bariatric Surgery, Bladder Surgery, Bowel Resection, Hernia Repair, Hysterectomy, Tonsillectomy, Tubal Ligation Additional Past Surgical History / Comment(s): Gastric Stapling 1978, pilonidal cyst removed pain associated with knees. D&C, URSZULA-EN-Y,SUBTOTAL GASTRECTOMY, EGD. 2 URINARY STENTS. COLOSTOMY. gastric tube. Past Anesthesia/Blood Transfusion Reactions: Motion Sickness Past Psychological History: Anxiety, Depression Smoking Status: Never smoker Past Alcohol Use History: None Reported Past Drug Use History: None Reported - Past Family History Mother Family Medical History: Neurologic Disorder Additional Family Medical History / Comment(s): PACEMAKER, PARKINSONS Father Family Medical History: Myocardial Infarction ([place]) Additional Family Medical History / Comment(s): AFTER HAVING HIS 3RD [place] General Exam - General Exam Comments Initial Comments: General: The patient is awake and alert, in no distress, and does not appear acutely ill. Eye: Pupils are equal, round and reactive to light, extra-ocular movements are intact. No nystagmus. There is normal conjunctiva bilaterally. No signs of icterus. Ears, nose, mouth and throat: There are moist mucous membranes and no oral lesions. Neck: The neck is supple, there is no tenderness or JVD. Cardiovascular: There is a regular rate and rhythm. No murmur, rub or gallop is appreciated. Respiratory: Lungs are clear to auscultation, respirations are non-labored, breath sounds are equal. No wheezes, stridor, rales, or rhonchi. Gastrointestinal: Multiple scars upon inspection of the abdomen. Soft, obese , non-tender abdomen without masses or organomegaly noted. There is no rebound or guarding present. No CVA tenderness. Bowel sounds are unremarkable. I see bag in place, no surrounding erythema, no pain to palpation. G-tube to in place , there is noted mild leakage on gauze pad, no erythema surrounding G-tube or purulent drainage. No pain to palpation of the G-tube site. No warmth to palpation. Musculoskeletal: Normal ROM, no tenderness. Sensation intact. Radial pulses equal bilaterally 2+. Neurological: A&O x 3. CN II-XII intact, There are no obvious motor or sensory deficits. Coordination appears grossly intact. Speech is normal. Skin: Skin is warm and dry and no rashes or lesions are noted. Psychiatric: Cooperative, appropriate mood & affect, normal judgment. Limitations: no limitations Course Vital Signs 02/15/18 02/15/18 01:23 02:36 Temperature 98.9 F Pulse Rate 88 92 Respiratory 16 16 Rate Blood Pressure 98/58 97/65 O2 Sat by Pulse 97 92 L Oximetry Medical Decision Making - Medical Decision Making 67 or female presenting with chief complaint of leakage from G-tube site. Upon evaluation, there is no signs of infection, there is mild leakage from the G- tube site. Tube draining. Patient stated that she is often told to quit pulling on the tube. Because surrounding the G-tube was replaced. I discussed the case at [facility] with attending provider at this time feel patient complained to me addressed outpatient given no signs of infection or tube malfunction. Patient's vital signs stable, afebrile. Pt is well appearing. Pt will be discharged with follow-up with Dr. Marquez in next 1-2 days for evaluation of leaking from G-tube site. Pt is agreeable with plan, i discussed importance of frequent gauze changes, and monitoring for signs of infection. Pt verbalized understanding. Pt was discharged to [facility] via EMS in stable condition. Denies questions at this time, verbalized understanding of making an appointment with Dr. Marquez. I reviewed nursing discharge asssement, pt was given written summary with instruction and phone number for Dr. Lincoln to contact for appointment, in addition to verbal instructions of g-tube care and return parameters. Disposition Clinical Impression: Leakage of gastrostomy site Disposition: HOME SELF-CARE Condition: Good Additional Instructions: Please change dressing around G-tube every 2 hours. Please follow-up with general surgery in the next 1-2 days. Please return to emergency room if the symptoms increase or worsen or for any other concerns, including redness at site , increasing pain, fever, chills. Is patient prescribed a controlled substance at d/c from ED?: No Referrals: Rojas Vanegas DO [Primary Care Provider] - 1-2 days Chas Marquez MD [Medical Doctor] - 1-2 days Time of Disposition: 02:19
[2018-02-15 02:37] VITALS: BP 97/65; PULSE 92
== END 2018-02-15 03:11 | disposition home or self-care (01) ==
LOC: EC 01:22
DX: K94.29 Other complications of gastrostomy (principal); I11.0 Hypertensive heart disease with heart failure; I50.9 Heart failure, unspecified; M19.90 Unspecified osteoarthritis, unspecified site; E07.9 Disorder of thyroid, unspecified; G47.30 Sleep apnea, unspecified; Z99.89 Dependence on other enabling machines and devices; Z85.038 Personal history of other malignant neoplasm of large intestine; Z85.42 Personal history of malignant neoplasm of other parts of uterus; Z79.891 Long term (current) use of opiate analgesic; Z79.899 Other long term (current) drug therapy
CPT/HCPCS: 99283

== ENCOUNTER 2018-02-23 23:28 | Inpatient (IN) | payer MEDICARE, OTHER ==
[2018-02-24] MEDS ORDERED: ACETAMINOPHEN TAB 325 MG TAB PO STA (01:02)
[2018-02-24 01:29] LABS: Partial Thromboplastin Time 27.3 sec (22.0-30.0); Prothrombin Time 10.7 sec (9.0-12.0)
[2018-02-24 01:31] LABS: Basophils % (A) 1 %; Eosinophils # (A) 0.2 k/uL (0-0.7); Eosinophils % (A) 2 %; HCT 29.8 % (34.0-46.0); HGB 9.3 gm/dL (11.4-16.0); Lymphocytes # (A) 1.2 k/uL (1.0-4.8); Lymphocytes % (A) 14 %; MCH 30.5 pg (25.0-35.0); MCHC 31.3 g/dL (31.0-37.0); MCV 97.3 fL (80.0-100.0); Mean Platelet Volume 7.4; Monocytes # (A) 0.8 k/uL (0-1.0); Monocytes % (A) 10 %; Neutrophils # (A) 5.8 k/uL (1.3-7.7); Neutrophils % (A) 70 %; Platelet Count 461 k/uL (150-450); RBC 3.06 m/uL (3.80-5.40); RDW 13.9 % (11.5-15.5); WBC 8.3 k/uL (3.8-10.6)
[2018-02-24 01:38] LABS: ALT 22 U/L (9-52); AST 24 U/L (14-36); Albumin 2.5 g/dL (3.5-5.0); Alkaline Phosphatase 173 U/L (38-126); Anion Gap 8 mmol/L; Blood Urea Nitrogen 32 mg/dL (7-17); Carbon Dioxide 26 mmol/L (22-30); Chloride 103 mmol/L (98-107); Glucose 78 mg/dL (74-99); Potassium 4.5 mmol/L (3.5-5.1); Sodium 137 mmol/L (137-145); Total Bilirubin 0.5 mg/dL (0.2-1.3); Total Protein 5.5 g/dL (6.3-8.2)
--- NOTE | 2018-02-24 01:53 | XR ---
EXAMINATION TYPE: XR Hip Limited LT DATE OF EXAM: 02/24/2018 COMPARISON: NONE HISTORY: Left hip pain TECHNIQUE: Single view FINDINGS: Left hip joint space is normal. I see no fracture nor dislocation. There is bilateral urete ral stents noted. IMPRESSION: Negative left hip exam.
--- NOTE | 2018-02-24 01:55 | XR ---
EXAMINATION TYPE: XR chest 1V portable DATE OF EXAM: 02/24/2018 COMPARISON: 02/08/2018 HISTORY: Fever TECHNIQUE: Single frontal view of the chest is obtained. FINDINGS: There is left side central venous catheter with the tip in the superior vena cava. There i s also a second left-sided central venous catheter also with tip in superior vena cava. There is mild infiltrate and atelectasis in the right upper lobe and to a lesser extent the right lower lobe. The left lung is clear. There is no heart failure. Thoracic aorta is atheromatous. IMPRESSION: There is some new mild infiltrate and atelectasis in the right lung compared to old exam . No heart failure seen.
--- NOTE | 2018-02-24 01:57 | XR ---
EXAMINATION TYPE: XR KUB portable DATE OF EXAM: 02/24/2018 COMPARISON: 01/26 HISTORY: Check PEG tube placement TECHNIQUE: Single view supine FINDINGS: A single view shows contrast injected into the PEG tube. The contrast appears to flow freel y into the duodenum. I see no evidence of contrast extravasation. There are numerous surgical clips o selwyn the left upper quadrant. There are bilateral ureteral stents. There is no sign of free air. IMPRESSION: PEG tube appears to be in good position. No contrast extravasation seen.
--- NOTE | 2018-02-24 02:52 | ED ---
General Adult HPI - General Chief complaint: Abdominal Pain Stated complaint: altered LOC Time Seen by Provider: 02/23/18 23:49 Source: EMS Mode of arrival: EMS Limitations: altered mental status - History of Present Illness Initial comments: This patient is a 67-year-old woman, with history of stage IV metastatic cancer , who presents with complaint that her G-tube has become displaced. Mostly history is from patient's family. They still do state that the patient had the G-tube placed for palliative purposes. They state that it has been draining some bile. Tonight the tube reportedly fell out and it appeared that the balloon had deflated. There were no other complaints, but family member noted that the patient did feel warm, and noted in triage to have a fever. -: hour(s) Location: abdomen Consistency: other Treatments Prior to Arrival: none - Related Data Home Medications Medication Instructions Recorded Confirmed Levothyroxine Sodium [Synthroid] 150 mcg PO DAILY 11/26/14 02/07/18 Diltiazem Cd [Cardizem CD] 120 mg PO DAILY PRN MDD OVER 120 01/13/18 02/07/18 SILVER sulfADIAZINE Cream 1 applic TOPICAL DAILY PRN 01/13/18 02/07/18 [Silvadene 1% Cream] Citalopram Hydrobromide [CeleXA] 40 mg PO HS PRN 02/07/18 02/24/18 Ergocalciferol [Vitamin D2 50,000 unit PO WE 02/07/18 02/24/18 (DRISDOL)] Famotidine [Pepcid] 20 mg PO BID 02/07/18 02/24/18 Gabapentin [Neurontin] 300 mg PO Q8HR 02/07/18 02/24/18 fentaNYL 100MCG/HR PATCH 100 mcg TRANSDERM Q72H 02/07/18 02/24/18 [Duragesic 100MCG/HR] Tpn 1 dose IV DIRECTED 02/24/18 02/24/18 Previous Rx's Medication Instructions Recorded fentaNYL 50MCG/HR PATCH [Duragesic 50 mcg TRANSDERM Q72H #1 patch 02/10/18 50MCG/HR] Allergies Allergy/AdvReac Type Severity Reaction Status Date / Time No Known Allergies Allergy Verified 02/24/18 08:03 Review of Systems ROS Statement: Those systems with pertinent positive or pertinent negative responses have been documented in the HPI. ROS Other: All systems not noted in ROS Statement are negative. Limitations: ROS unobtainable due to patients medical condition Constitutional: Reports: fever Respiratory: Denies: cough, dyspnea Cardiovascular: Denies: chest pain Gastrointestinal: Reports: as per HPI, other (PEG tube failure). Denies: abdominal pain, vomiting, diarrhea Genitourinary: Reports: other (Indwelling Bustamante catheter) Musculoskeletal: Reports: arthralgia (Left hip pain since a fall about a week ago). Denies: back pain Neurological: Denies: headache Past Medical History Past Medical History: Blood Disorder, Cancer, Heart Failure, Hearing Disorder / Deafness, Hypertension, Osteoarthritis (OA), Sleep Apnea/CPAP/BIPAP, Thyroid Disorder Additional Past Medical History / Comment(s): Pt stated that she has enlarged heart and two leaky valves. ENDOMETRIAL AND COLON CANCER. History of Any Multi-Drug Resistant Organisms: None Reported Past Surgical History: Bariatric Surgery, Bladder Surgery, Bowel Resection, Hernia Repair, Hysterectomy, Tonsillectomy, Tubal Ligation Additional Past Surgical History / Comment(s): Gastric Stapling 1978, pilonidal cyst removed pain associated with knees. D&C, URSZULA-EN-Y,SUBTOTAL GASTRECTOMY, EGD. 2 URINARY STENTS. COLOSTOMY. gastric tube. Past Anesthesia/Blood Transfusion Reactions: Motion Sickness Past Psychological History: Anxiety, Depression Smoking Status: Never smoker Past Alcohol Use History: None Reported Past Drug Use History: None Reported - Past Family History Mother Family Medical History: Neurologic Disorder Additional Family Medical History / Comment(s): PACEMAKER, PARKINSONS Father Family Medical History: Myocardial Infarction ([place]) Additional Family Medical History / Comment(s): AFTER HAVING HIS 3RD [place] General Exam Limitations: no limitations General appearance: alert, in no apparent distress, obese Head exam: Present: atraumatic, normocephalic Eye exam: Present: normal appearance ENT exam: Present: mucous membranes dry Respiratory exam: Present: rhonchi. Absent: respiratory distress, wheezes, rales, stridor Cardiovascular Exam: Present: tachycardia, normal heart sounds. Absent: systolic murmur, diastolic murmur, rubs, gallop GI/Abdominal exam: Present: soft, other (The patient's gastrotomy in the right upper quadrant does have some skin irritation and there is a small amount of gastric drainage. The tube has come out.). Absent: distended, tenderness, guarding, rebound Extremities exam: Present: normal inspection, normal capillary refill. Absent: pedal edema Neurological exam: Present: alert Skin exam: Present: warm, dry, intact, normal color. Absent: rash Course Vital Signs 02/23/18 02/24/18 02/24/18 23:36 02:00 03:47 Temperature 102.9 F H 102.7 F H 100.5 F H Pulse Rate 112 H 116 H 108 H Respiratory 20 18 18 Rate Blood Pressure 131/69 138/77 104/81 O2 Sat by Pulse 93 L 95 94 L Oximetry 02/24/18 06:07 Temperature 99.3 F Pulse Rate 98 Respiratory 18 Rate Blood Pressure 114/75 O2 Sat by Pulse 96 Oximetry Medical Decision Making - Medical Decision Making This patient is a 67-year-old woman with history of stage IV metastatic cancer. She is transported here from a long-term after her PEG tube fall out. The patient here is found to have fever and it does appear this is due to pneumonia. The urine specimen is also dirty but suspect this is due to a colonized indwelling Bustamante catheter. The patient is started on healthcare associated pneumonia coverage. Was able to replace the patient's gastric tube without complication and the x- ray confirms appropriate position placement. - Lab Data Result diagrams: 02/23/18 23:50 02/23/18 23:50 Lab Results 02/23/18 02/23/18 02/23/18 Range/Units 23:50 23:50 23:50 WBC 8.3 (3.8-10.6) k/uL RBC 3.06 L (3.80-5.40) m/uL Hgb 9.3 L (11.4-16.0) gm/dL Hct 29.8 L (34.0-46.0) % MCV 97.3 (80.0-100.0) fL MCH 30.5 (25.0-35.0) pg MCHC 31.3 (31.0-37.0) g/dL RDW 13.9 (11.5-15.5) % Plt Count 461 H (150-450) k/uL Neutrophils % 70 % Lymphocytes % 14 % Monocytes % 10 % Eosinophils % 2 % Basophils % 1 % Neutrophils # 5.8 (1.3-7.7) k/uL Lymphocytes # 1.2 (1.0-4.8) k/uL Monocytes # 0.8 (0-1.0) k/uL Eosinophils # 0.2 (0-0.7) k/uL Basophils # 0.0 (0-0.2) k/uL PT (9.0-12.0) sec INR (<1.2) APTT (22.0-30.0) sec Sodium 137 (137-145) mmol/L Potassium 4.5 (3.5-5.1) mmol/L Chloride 103 (98-107) mmol/L Carbon Dioxide 26 (22-30) mmol/L Anion Gap 8 mmol/L BUN 32 H (7-17) mg/dL Creatinine 0.52 (0.52-1.04) mg/dL Est GFR (CKD-EPI)AfAm >90 (>60 ml/min/1.73 sqM) Est GFR (CKD-EPI)NonAf >90 (>60 ml/min/1.73 sqM) Glucose 78 (74-99) mg/dL Plasma Lactic Acid Boby 0.8 (0.7-2.0) mmol/L Calcium 7.0 L (8.4-10.2) mg/dL Total Bilirubin 0.5 (0.2-1.3) mg/dL AST 24 (14-36) U/L ALT 22 (9-52) U/L Alkaline Phosphatase 173 H (38-126) U/L Total Protein 5.5 L (6.3-8.2) g/dL Albumin 2.5 L (3.5-5.0) g/dL Urine Color Urine Appearance (Clear) Urine pH (5.0-8.0) Ur Specific Umbarger (1.001-1.035) Urine Protein (Negative) Urine Glucose (UA) (Negative) Urine Ketones (Negative) Urine Blood (Negative) Urine Nitrite (Negative) Urine Bilirubin (Negative) Urine Urobilinogen (<2.0) mg/dL Ur Leukocyte Esterase (Negative) Urine RBC (0-5) /hpf Urine WBC (0-5) /hpf Urine WBC Clumps (None) /hpf Urine Bacteria (None) /hpf Urine Mucus (None) /hpf Influenza Type A RNA (Not Detectd) Influenza Type B (PCR) (Not Detectd) 02/23/18 02/24/18 02/24/18 Range/Units 23:50 01:09 02:00 WBC (3.8-10.6) k/uL RBC (3.80-5.40) m/uL Hgb (11.4-16.0) gm/dL Hct (34.0-46.0) % MCV (80.0-100.0) fL MCH (25.0-35.0) pg MCHC (31.0-37.0) g/dL RDW (11.5-15.5) % Plt Count (150-450) k/uL Neutrophils % % Lymphocytes % % Monocytes % % Eosinophils % % Basophils % % Neutrophils # (1.3-7.7) k/uL Lymphocytes # (1.0-4.8) k/uL Monocytes # (0-1.0) k/uL Eosinophils # (0-0.7) k/uL Basophils # (0-0.2) k/uL PT 10.7 (9.0-12.0) sec INR 1.0 (<1.2) APTT 27.3 (22.0-30.0) sec Sodium (137-145) mmol/L Potassium (3.5-5.1) mmol/L Chloride (98-107) mmol/L Carbon Dioxide (22-30) mmol/L Anion Gap mmol/L BUN (7-17) mg/dL Creatinine (0.52-1.04) mg/dL Est GFR (CKD-EPI)AfAm (>60 ml/min/1.73 sqM) Est GFR (CKD-EPI)NonAf (>60 ml/min/1.73 sqM) Glucose (74-99) mg/dL Plasma Lactic Acid Boby (0.7-2.0) mmol/L Calcium (8.4-10.2) mg/dL Total Bilirubin (0.2-1.3) mg/dL AST (14-36) U/L ALT (9-52) U/L Alkaline Phosphatase (38-126) U/L Total Protein (6.3-8.2) g/dL Albumin (3.5-5.0) g/dL Urine Color Yellow Urine Appearance Cloudy H (Clear) Urine pH 7.0 (5.0-8.0) Ur Specific Umbarger 1.012 (1.001-1.035) Urine Protein Trace H (Negative) Urine Glucose (UA) Negative (Negative) Urine Ketones Negative (Negative) Urine Blood Moderate H (Negative) Urine Nitrite Negative (Negative) Urine Bilirubin Negative (Negative) Urine Urobilinogen <2.0 (<2.0) mg/dL Ur Leukocyte Esterase Large H (Negative) Urine RBC 103 H (0-5) /hpf Urine WBC >182 H (0-5) /hpf Urine WBC Clumps Many H (None) /hpf Urine Bacteria Many H (None) /hpf Urine Mucus Rare H (None) /hpf Influenza Type A RNA Not Detected (Not Detectd) Influenza Type B (PCR) Not Detected (Not Detectd) Disposition Clinical Impression: Malfunction of gastrostomy tube, Fever, Pneumonia Disposition: ADMITTED IP TO THIS HOSP Condition: Poor Is patient prescribed a controlled substance at d/c from ED?: No
[2018-02-24 03:06] LABS: Appearance,Urine Cloudy (Clear); Bacteria,Urine Many /hpf; Bilirubin,Urine Negative (Negative); Blood,Urine Moderate (Negative); Color,Urine Yellow; Glucose,Urine (UA) Negative (Negative); Ketones,Urine Negative (Negative); Leukocyte Esterase,Urine Large (Negative); Mucus,Urine Rare /hpf; Nitrite,Urine Negative (Negative); Protein,Urine Trace (Negative); RBC,Urine 103 /hpf (0-5); Specific Gravity,Urine 1.012 (1.001-1.035); Urobilinogen,Urine <2.0 mg/dL (<2.0); WBC,Urine >182 /hpf (0-5)
[2018-02-24] MEDS ORDERED: PIPERACILLIN-TAZOBACTAM 3.375 GM in SODIUM CHLORIDE 0.9% 100 ML IVPB STA (03:30)
[2018-02-24] MEDS ORDERED: LEVOFLOXACIN 750 MG TAB PO STA (03:30)
[2018-02-24] MEDS ORDERED: PNEUMONIA PROTOCOL UTILIZED 1 EACH MISC PO PRN (03:56)
[2018-02-24] MEDS: SODIUM CHLORIDE 0.9% 1,000 ML IV SCH ×2 (08:02→13:17)
[2018-02-24] MEDS: PIPERACILLIN-TAZOBACTAM 3.375 GM in SODIUM CHLORIDE 0.9% 100 ML IVPB SCH ×2 (12:03→21:14)
[2018-02-24] MEDS ORDERED: CITALOPRAM HYDROBROMIDE 20 MG TAB PO PRN (15:05)
[2018-02-24] MEDS ORDERED: LORazepam 2 MG/ML INJ IV PRN (15:05)
[2018-02-24] MEDS ORDERED: TPN IV SCH (15:15)
[2018-02-24 17:03] VITALS: BMI 42.4
[2018-02-24] MEDS: GABAPENTIN 300 MG CAP PO SCH ×2 (17:04→23:47)
--- NOTE | 2018-02-24 18:16 | P.GSCN ---
History of Present Illness Consult date: 02/24/18 Reason for Consult: Leaking PEG tube History of present illness: Patient came to the ER last night with fevers and complaints that her gastrostomy tube had fallen out. The patient is and palliative care apparently for advanced gynecologic malignancy. She has a history of previous gastric bypass. It is unclear exactly what portion of the GI tract the gastrostomy tube was present within. It was replaced while she was in the ER last night. A KUB was obtained with contrast proving that the feeding tube was in the stomach. I suspect this is in the defunctionalized portion of distal stomach. She has had issues related to bilious drainage around the ostomy site. Typically this occurs when the bolster is loose. It appears that the gastrostomy tube that fell out was the same size as the balloon replacement that was placed in the ER. It is unclear whether this was the exact tube or not. She is still eating somewhat. Remains on TPN. Also had significant fevers. Urinalysis suggests the presence of possible UTI. Review of Systems The patient denies any acute changes in vision or hearing, no dysphagia or odynophagia, no chest pain or shortness of breath, no dysuria or hematuria, no headache, no runny nose, no rectal bleeding or melena, no unexplained weight loss Past Medical History Past Medical History: Blood Disorder, Cancer, Heart Failure, Eye Disorder, Hearing Disorder / Deafness, Hypertension, Osteoarthritis (OA), Sleep Apnea/CPAP /BIPAP, Thyroid Disorder Additional Past Medical History / Comment(s): Metastatic endometrial cancer, colon cancer, protein calorie malnutrition, pt states enlarged heart and 2 leaky heart valves, hx SWEETIE but no Cpap use since wt loss, bronchitis, hypothyroid, UTIs, urinary retention/IDC, arthritis bilateral knees, bilateral eyes with cataracts, DJD, pt has G-tube, colostomy, cardenas cath and recieves TPN. History of Any Multi-Drug Resistant Organisms: None Reported Past Surgical History: Bariatric Surgery, Bladder Surgery, Bowel Resection, Hernia Repair, Hysterectomy, Tonsillectomy, Tubal Ligation Additional Past Surgical History / Comment(s): Gastric Stapling 1978, subtotal gastrectomy/deven en Y, bowel resection, incisional hernia repair, bladder repair with hysterectomy, D&C, pilonidal cyst, 2 ureteral stents d/t metastatic cancer. Past Anesthesia/Blood Transfusion Reactions: Motion Sickness Smoking Status: Never smoker - Past Family History Mother Family Medical History: Neurologic Disorder Additional Family Medical History / Comment(s): PACEMAKER, PARKINSONS Father Family Medical History: Myocardial Infarction ([place]) Additional Family Medical History / Comment(s): AFTER HAVING HIS 3RD [place] Medications and Allergies Home Medications Medication Instructions Recorded Confirmed Type Levothyroxine Sodium [Synthroid] 150 mcg PO DAILY 11/26/14 02/24/18 History Citalopram Hydrobromide [CeleXA] 40 mg PO HS PRN 02/07/18 02/24/18 History Ergocalciferol [Vitamin D2 50,000 unit PO WE 02/07/18 02/24/18 History (DRISDOL)] Famotidine [Pepcid] 20 mg PO BID 02/07/18 02/24/18 History Gabapentin [Neurontin] 300 mg PO Q8HR 02/07/18 02/24/18 History fentaNYL 100MCG/HR PATCH 100 mcg TRANSDERM Q72H 02/07/18 02/24/18 History [Duragesic 100MCG/HR] fentaNYL 50MCG/HR PATCH [Duragesic 50 mcg TRANSDERM Q72H #1 patch 02/10/1802/24 Rx 50MCG/HR] Tpn 1 dose IV DIRECTED 02/24/18 02/24/18 History Allergies Allergy/AdvReac Type Severity Reaction Status Date / Time No Known Allergies Allergy Verified 02/24/18 08:03 Surgical - Exam Vital Signs Temp Pulse Resp BP Pulse Ox 102.9 F H 112 H 20 131/69 93 L 02/23/18 23:36 02/23/18 23:36 02/23/18 23:36 02/23/18 23:36 02/23/18 23:36 Physical exam: General: Well-developed, well-nourished HEENT: Normocephalic, sclerae nonicteric Abdomen: Gastrostomy tube upper midline with excoriated skin around it, mild tenderness, the size of the skin opening is larger than the 18-Burundian tube, nondistended Extremities: No edema Neuro: Alert and oriented Results - Labs 02/23/18 23:50 02/23/18 23:50 Abnormal Lab Results - Last 24 Hours (Table) 02/23/18 02/23/18 02/24/18 Range/Units 23:50 23:50 02:00 RBC 3.06 L (3.80-5.40) m/uL Hgb 9.3 L (11.4-16.0) gm/dL Hct 29.8 L (34.0-46.0) % Plt Count 461 H (150-450) k/uL BUN 32 H (7-17) mg/dL Calcium 7.0 L (8.4-10.2) mg/dL Alkaline Phosphatase 173 H (38-126) U/L Total Protein 5.5 L (6.3-8.2) g/dL Albumin 2.5 L (3.5-5.0) g/dL Urine Appearance Cloudy H (Clear) Urine Protein Trace H (Negative) Urine Blood Moderate H (Negative) Ur Leukocyte Esterase Large H (Negative) Urine RBC 103 H (0-5) /hpf Urine WBC >182 H (0-5) /hpf Urine WBC Clumps Many H (None) /hpf Urine Bacteria Many H (None) /hpf Urine Mucus Rare H (None) /hpf Microbiology - Last 24 Hours (Table) 02/24/18 02:00 Urine Culture - Preliminary Urine,Catheterized Diabetes panel 02/23/18 Range/Units 23:50 Sodium 137 (137-145) mmol/L Potassium 4.5 (3.5-5.1) mmol/L Chloride 103 (98-107) mmol/L Carbon Dioxide 26 (22-30) mmol/L BUN 32 H (7-17) mg/dL Creatinine 0.52 (0.52-1.04) mg/dL Glucose 78 (74-99) mg/dL Calcium 7.0 L (8.4-10.2) mg/dL AST 24 (14-36) U/L ALT 22 (9-52) U/L Alkaline Phosphatase 173 H (38-126) U/L Total Protein 5.5 L (6.3-8.2) g/dL Albumin 2.5 L (3.5-5.0) g/dL Calcium panel 02/23/18 Range/Units 23:50 Calcium 7.0 L (8.4-10.2) mg/dL Albumin 2.5 L (3.5-5.0) g/dL Pituitary panel 02/23/18 Range/Units 23:50 Sodium 137 (137-145) mmol/L Potassium 4.5 (3.5-5.1) mmol/L Chloride 103 (98-107) mmol/L Carbon Dioxide 26 (22-30) mmol/L BUN 32 H (7-17) mg/dL Creatinine 0.52 (0.52-1.04) mg/dL Glucose 78 (74-99) mg/dL Calcium 7.0 L (8.4-10.2) mg/dL Adrenal panel 02/23/18 Range/Units 23:50 Sodium 137 (137-145) mmol/L Potassium 4.5 (3.5-5.1) mmol/L Chloride 103 (98-107) mmol/L Carbon Dioxide 26 (22-30) mmol/L BUN 32 H (7-17) mg/dL Creatinine 0.52 (0.52-1.04) mg/dL Glucose 78 (74-99) mg/dL Calcium 7.0 L (8.4-10.2) mg/dL Total Bilirubin 0.5 (0.2-1.3) mg/dL AST 24 (14-36) U/L ALT 22 (9-52) U/L Alkaline Phosphatase 173 H (38-126) U/L Total Protein 5.5 L (6.3-8.2) g/dL Albumin 2.5 L (3.5-5.0) g/dL Assessment and Plan (1) Malfunction of gastrostomy tube Narrative/Plan: Will try to replace the current DAVID tube with a larger diameter tube. The patient and I discussed the options of returning back to [facility]. She believes that they gave up on her case. She states she is not convinced that the obstruction is related to her underlying cancer. Apparently when cold status was discussed with the patient today she mentioned that she was planning to stay full code partly on the basis of receiving ongoing Social Security checks for her family to use. Recommend oncology reevaluation and social work consult. Current Visit: Yes Status: Acute Priority: High Code(s): K94.23 - GASTROSTOMY MALFUNCTION SNOMED Code(s): 646007856
[2018-02-24 19:13] LABS: Ionized Calcium 4.7 mg/dL (4.5-5.3)
[2018-02-24] MEDS ORDERED: IPRATROPIUM-ALBUTEROL 3 ML NEB INHALATION PRN (19:14)
[2018-02-24 19:19] LABS: Magnesium 1.8 mg/dL (1.6-2.3); Phosphorus 4.4 mg/dL (2.5-4.5)
[2018-02-24] MEDS: ACETAMINOPHEN TAB 325 MG TAB PO PRN (19:24)
[2018-02-24] MEDS: IPRATROPIUM-ALBUTEROL 3 ML NEB INHALATION SCH (19:59)
[2018-02-24] MEDS ORDERED: NYSTAT-TRIAMCIN 100,000-0.1 UNIT/GM-% CREAM 30 GM TUBE TOPICAL SCH (21:00)
[2018-02-24] MEDS ORDERED: MVI, ADULT NO.4 WITH VIT K 10 ML, TRACE (CONC-1ML/DOSE) 1 ML in AMINO ACID 5%-D15W+LYTE... IV SCH ×3 (21:00)
[2018-02-24] MEDS: FAT EMULSION 20% 250 ML in EMPTY BAG 1 BAG IV SCH (21:19)
[2018-02-24] MEDS: FAMOTIDINE 20 MG TAB PO SCH (21:27)
[2018-02-24] MEDS: HEPARIN SODIUM,PORCINE 5,000 UNIT/ML 1 ML VIAL SQ SCH (21:27)
--- NOTE | 2018-02-24 22:01 | HP ---
HISTORY AND PHYSICAL CHIEF COMPLAINTS: Dislodged gastrostomy tube. HISTORY OF PRESENT ILLNESS: This 67-year-old woman with a past medical history of multiple medical problems including stage IV metastatic EXECUTIVE STEWARD malignancy, history of CHF, history of hypertension, history of DJD, history of metastatic endometrial cancer, colon cancer, protein calorie malnutrition, history of bariatric surgery being followed by Dr. Brown in the outpatient setting was recently admitted to [facility] with dislodgement of the gastrostomy tube. Patient's tube was inserted. The patient was sent back to the [facility] under the care of Dr. Vanegas and currently the patient is noted to have the tube reportedly fell out and the balloon was deflated and the patient taken to [facility] and was admitted for further evaluation and treatment. There is some biliary leakage around the tube as well. The tube was inserted for palliative care, but however the patient remained FULL CODE at this time. The patient wanted everything to be done according to the patient. Please refer to health care social worker notes and other notes for further information regarding the social issues. Otherwise, currently the patient is being closely monitored. Patient also receiving TPN. There is no history of fever, rigors or chills at this time. PAST MEDICAL HISTORY: History of CHF, history of hypertension, DJD, history of sleep apnea, history of colon cancer. MEDICATIONS: Home medications are: 1. TPN. 2. Neurontin 300 mg p.o. q8h. 3. Pepcid 20 mg p.o. t.i.d. 4. Synthroid 150 mcg p.o. daily. 5. Fentanyl patch 150 mcg q.72h. 6. Drisdol 50,000 p.o. 7. Celexa 40 mg q.h.s. p.r.n. ALLERGIES: None. FAMILY HISTORY: History of neurologic disorders, pacemaker and Parkinson's. SOCIAL HISTORY: No history of smoking. No history of alcohol intake. REVIEW OF SYSTEMS: ENT: Diminished hearing and diminished vision. CARDIOVASCULAR: No angina or palpitations. RESPIRATORY: As mentioned earlier. GI no nausea or vomiting. : No dysuria or hematuria. CENTRAL NERVOUS SYSTEM: No numbness or weakness. ALLERGY/IMMUNOLOGY: No asthma or hayfever. MUSCULOSKELETAL: As mentioned earlier. HEMATOLOGY/ONCOLOGY: As mentioned earlier. ENDOCRINE: As mentioned earlier. CONSTITUTIONAL: As mentioned earlier. Dermatology: Negative. Rheumatology: Negative. Psychiatry: As mentioned earlier. PHYSICAL EXAM: GENERAL: The patient is alert and oriented times three. VITAL SIGNS: Pulse 82, blood pressure 120/82, respiratory rate 16, temperature 99.4, pulse ox 98% on room air. HEENT: Conjunctivae normal. Oral mucosa moist. NECK is no jugular venous distention. No carotid bruit. No lymph node enlargement. CARDIOVASCULAR SYSTEM: S1, S2 muffled. RESPIRATORY SYSTEM: Breath sounds diminished at the bases. A few scattered rhonchi and crackles. ABDOMEN: Soft, obese. Otherwise, gastrostomy tube is present. Some drainage and some leakage around the tube with some macerations of the skin. Otherwise no mass palpable. LEGS: Minimal edema. NERVOUS SYSTEM: Higher functions as mentioned earlier. Moves all four extremities. No focal motor deficits. Lymphatics: No lymph nodes palpable in the neck, axillae or groin. SKIN: No ulcer, rash, bleeding. JOINTS: No active arthropathy. LABS: At this time shows labs are WBC 8.2, hemoglobin is 9.3, and albumin is 2.5. UA noted. Possibly UTI. Chest x-ray repeated as a new mild infiltrate on the right lung. ASSESSMENT: 1. Dislodgement of the gastrostomy tube which is inserted for palliative purposes. 2. History of metastatic endometrial adenocarcinoma on palliative care. 3. History of colon cancer. 4. Possible right lower lobe pneumonia possibly aspiration. 5. History of congestive heart failure. 6. On TPN. 7. Hypertension. 8. History of degenerative joint disease. 9. History of urinary tract infection present on admission. 10.Acute bronchitis. 11.Sleep apnea. 12.Hypothyroidism. 13.History of bariatric surgery. 14.History of bowel resection. 15.History of hernia repair. 16.History of gastric stapling. 17.History of anxiety, depression. 18.Obesity. 19.Anemia, normocytic anemia of chronic disease. RECOMMENDATIONS AND DISCUSSION: This 67-year-old woman who presented with multiple complex medical issues, we will monitor the patient closely, continue the current medications, management and symptomatic treatment. I will initiate broad-spectrum IV antibiotics. The patient is started on Zosyn. Otherwise, closely follow with Dr. Marquez who recommended replacing the gastrostomy tube with large diameter. Otherwise, the patient is not very keen on going back to hospital. I would also recommend broad-spectrum IV antibiotics, bronchodilators. Aspiration precautions to be continued. Prognosis guarded because of multiple complex medical issues. Further recommendations to follow. See orders for details. The patient continues to be FULL CODE. MMODL / IJN: [id number] / MTDD
--- NOTE | 2018-02-24 23:46 | CONS ---
CONSULTATION DATE OF SERVICE: 02/24/2018. REASON FOR CONSULTATION: Fever, cellulitis around the gastric tube. HISTORY OF PRESENT ILLNESS: The patient is a 67-year-old female with a past medical history significant for metastatic endometrial cancer. The patient presented to the ER at [facility] early this morning after apparently the patient's G tube got displaced which apparently has been there for palliative purposes. The tube fell out. Apparently the balloon was deflated and she was noticed to have significant biliary drainage. The ER physician did decrease the tube packing, however, the patient still have significant drainage around the tube and has developed significant redness and erythema to the abdominal wall around the tube. The patient did have pain around the area, more of a sharp pain, 4 to 5 with no radiation. The patient on admission to the hospital also had fever to 102 degrees Fahrenheit. She did have a chest x-ray showing right middle lobe infiltrate, however, the patient denied significant cough or sputum production. The patient denies having any nausea or vomiting. No chest pain or shortness of breath or cough or any diarrhea. She did have a positive UA though. The patient was started on Zosyn. Infectious Disease was consulted for further recommendation regarding antibiotic therapy. REVIEW OF SYSTEMS: Positive for what has been mentioned in HPI. Rest of the systems have been negative. PAST MEDICAL HISTORY: Significant for metastatic endometrial cancer, history of colon cancer, malnutrition, hypertension, osteoarthritis, sleep apnea. PAST SURGICAL HISTORY: bariatric surgery, bowel resection, hernia repair, hysterectomy, tonsillectomy, tubal ligation, gastric stapling in 1978, possible total gastrectomy. SOCIAL HISTORY: No history of smoking, drinking or drug use. FAMILY HISTORY: Mother with history of Parkinson disease. Father history of SC. ALLERGIES: No known drug allergies. MEDICATIONS: 1. Zosyn. 2. Protonix. 3. Synthroid. 4. Levaquin. 5. Heparin. 6. Neurontin. 7. Pepcid. 8. Vitamin D2. 9. Celexa. 10.DuoNeb. 11.Tylenol. EXAMINATION: Blood pressure is 124/82 with a pulse of 82, temperature 98.4, T-max 102, she is saturating 98% on room air. GENERAL DESCRIPTION: An elderly female up in the chair in no distress. No tachypnea or muscle of respiration use. HEENT: Shows slight pallor. No scleral icterus. Oral mucosa is dry. No pharyngeal erythema or thrush. NECK: Trachea central. No thyromegaly. LUNGS: Unlabored breathing with decreased breath sounds in the bases. No wheeze. HEART: S1, S2. Regular rate and rhythm. ABDOMEN: Soft. There was no distention or guarding. The patient did have significant erythema around the gastrostomy tube site which is draining biliary secretion. EXTREMITIES: Some trace edema of the feet. NEUROLOGIC: The patient is awake, alert, oriented. Mood and affect normal. LABS: Hemoglobin 9.8, white count 8.3 with a BUN of 22, creatinine 0.5, white count has been normal. Liver enzymes are normal urine has been positive with large leukocyte esterase with more than 1 to 2 WBC. Cultures pending. Influenza serology has been negative. Chest with right middle lobe infiltrate. DIAGNOSTIC IMPRESSION: 1. Patient admitted to the hospital with dislodgement of gastrostomy tube. The patient apparently did have significant leakage around the tube, mostly bilious secretion, with significant irritation of the surrounding skin and possible cellulitis. 2. The patient did have fever, source could be more likely urinary tract infection or abdominal cellulitis. Clinical suspicion is low for underlying pneumonia. PLAN: 1. We will apply Mycolog cream to the erythematous rash around the G-tube site twice a day. 2. Continue patient on Zosyn while waiting for the culture to finalize. 3. We will follow up on clinical condition and culture and further adjust medication if needed. Thank you for this consultation. Will follow this patient along with you. MMODL / IJN: [id number] /
[2018-02-24] MEDS: NYSTATIN 100,000UNIT/GM CREAM 30 GM TUBE TOPICAL SCH (23:51)
[2018-02-24] MEDS: TRIAMCINOLONE 0.1% CREAM 80 GM TUBE TOPICAL SCH (23:51)
[2018-02-25] MEDS: PIPERACILLIN-TAZOBACTAM 3.375 GM in SODIUM CHLORIDE 0.9% 100 ML IVPB SCH ×3 (03:40→20:44)
[2018-02-25] MEDS: LEVOTHYROXINE 75 MCG TAB PO SCH (06:12)
[2018-02-25] MEDS: LEVOFLOXACIN 750 MG TAB PO SCH ×2 (06:12→09:36)
[2018-02-25] MEDS: ACETAMINOPHEN TAB 325 MG TAB PO PRN ×2 (06:12→18:04)
[2018-02-25] MEDS: IPRATROPIUM-ALBUTEROL 3 ML NEB INHALATION SCH ×3 (06:13→19:20)
[2018-02-25] MEDS: PANTOPRAZOLE 40 MG/10 ML VIAL IVP SCH (09:33)
[2018-02-25] MEDS: GABAPENTIN 300 MG CAP PO SCH ×3 (09:36→23:19)
[2018-02-25] MEDS: FAMOTIDINE 20 MG TAB PO SCH ×2 (09:36→21:13)
[2018-02-25] MEDS: HEPARIN SODIUM,PORCINE 5,000 UNIT/ML 1 ML VIAL SQ SCH ×2 (09:36→21:13)
[2018-02-25] MEDS: TRIAMCINOLONE 0.1% CREAM 80 GM TUBE TOPICAL SCH ×2 (09:37→21:14)
[2018-02-25] MEDS: NYSTATIN 100,000UNIT/GM CREAM 30 GM TUBE TOPICAL SCH ×2 (09:37→21:14)
--- NOTE | 2018-02-25 11:20 | P.PN ---
Subjective Progress Note Date: 02/25/18 Principal diagnosis: G-tube malfunction Patient without new complaints. She was febrile overnight. Blood cultures positive. Urinary cultures pending. Still with some drainage around the G-tube Objective - Vital Signs Vital signs: Vital Signs Temp 101.8 F H 02/25/18 06:54 Pulse 91 02/25/18 06:54 Resp 18 02/25/18 06:54 BP 109/67 02/25/18 06:54 Pulse Ox 96 02/25/18 06:54 Intake & Output 02/24/18 02/25/18 02/25/18 18:59 06:59 18:59 Intake Total 240 Output Total 775 1200 Balance -535 -1200 Weight 108.635 kg Intake: Oral 240 Output: Gastric Drainage 275 Urine 500 1200 Other: Voiding Method Indwelling Catheter Indwelling Catheter Indwelling Catheter - Exam Abdomen: Soft, nondistended, gastrostomy site with induration and mild tenderness - Labs CBC & Chem 7: 02/23/18 23:50 02/23/18 23:50 Labs: Microbiology - Last 24 Hours (Table) 02/23/18 23:50 Blood Culture - Final Blood 02/24/18 02:00 Urine Culture - Preliminary Urine,Catheterized Assessment and Plan (1) Malfunction of gastrostomy tube Narrative/Plan: Will switch the current gastrostomy tube. A 22-Kazakh gastrostomy tube was advanced through the same skin opening without difficulty. No resistance was met. The balloon was inflated with 20 mL H2O. Bolster tightened appropriately. Current Visit: Yes Status: Acute Priority: High Code(s): K94.23 - GASTROSTOMY MALFUNCTION SNOMED Code(s): 440951188
[2018-02-25 11:23] LABS: HGB 9.8 gm/dL (11.4-16.0); RBC 3.15 m/uL (3.80-5.40); WBC 7.1 k/uL (3.8-10.6)
[2018-02-25 11:24] LABS: Basophils % (A) 1 %; Eosinophils # (A) 0.1 k/uL (0-0.7); Eosinophils % (A) 2 %; HCT 30.8 % (34.0-46.0); Hypochromasia Slight; Lymphocytes # (A) 0.9 k/uL (1.0-4.8); Lymphocytes % (A) 12 %; MCH 31.1 pg (25.0-35.0); MCHC 31.9 g/dL (31.0-37.0); MCV 97.6 fL (80.0-100.0); Monocytes # (A) 0.5 k/uL (0-1.0); Monocytes % (A) 6 %; Neutrophils # (A) 5.5 k/uL (1.3-7.7); Neutrophils % (A) 77 %; Platelet Count 381 k/uL (150-450); RDW 13.7 % (11.5-15.5)
[2018-02-25 11:40] LABS: Anion Gap 8 mmol/L; Blood Urea Nitrogen 19 mg/dL (7-17); Carbon Dioxide 26 mmol/L (22-30); Chloride 103 mmol/L (98-107); Glucose 109 mg/dL (74-99); Magnesium 1.6 mg/dL (1.6-2.3); Phosphorus 4.7 mg/dL (2.5-4.5); Potassium 3.8 mmol/L (3.5-5.1); Sodium 137 mmol/L (137-145)
[2018-02-25] MEDS ORDERED: VANCOMYCIN IV PER PHARMACY 1 EACH MISC MISCELLANE PRN (12:16)
[2018-02-25] MEDS ORDERED: VANCOMYCIN 2,000 MG in SODIUM CHLORIDE 0.9% 500 ML 500 ML IVPB ONE (12:30)
--- NOTE | 2018-02-25 14:32 | PN ---
PROGRESS NOTE DATE OF SERVICE: 02/25/2018 This 67-year-old woman is admitted with dislodged PEG tube, is being closely monitored at this time. The patient had a reinsertion in the ER. Dr. Marquez is following the patient closely. Dr. Camacho is recommending antibiotics for the possibility of UTI, abdominal cellulitis or pneumonia. The 22-Norwegian gastrostomy tube was inserted by Dr. Marquez and a balloon was inflated with 20 mL H2O. The bolus was tried inappropriately. PAST MEDICAL HISTORY: Reviewed. REVIEW OF SYSTEMS: CARDIOVASCULAR: No angina. RESPIRATION: As mentioned earlier. GI: As mentioned earlier: : As mentioned earlier. NERVOUS SYSTEMS: As mentioned earlier. CURRENT MEDICATIONS ARE REVIEWED, INCLUDE:: 1. Tylenol 650 q.6 p.r.n. 2. DuoNeb q.i.d. and p.r.n. 3. Celexa 40 mg q.h.s. 4. Vitamin D2 fifty thousand. 5. Pepcid. 6. TPN. 7. Duragesic. 8. Neurontin. 9. Levaquin. 10.Synthroid. 11.Ativan. 12.Mycostatin. 13.Oxy-IR. 14.Protonix TPN. 15.Vancomycin. PHYSICAL EXAM: Patient is alert, oriented x3. Pulse is 91, blood pressure 109/67, respiration 18, temperature 101.8, pulse ox 98% on 2 L. HEENT: Conjunctivae normal. NECK: No jugular venous distension. CARDIOVASCULAR: S1, S2. muffled. RESPIRATION: Breath sounds diminished at the bases, a few scattered rhonchi, no crackles. ABDOMEN: Soft, PEG tube drainage present. LEGS: No edema. NERVOUS SYSTEM: No focal deficits. LABS: WBC is 7.2, hemoglobin is 9.8, and UA noted. The cultures show urine cultures with gram-negative bacilli group enterococcus and blood culture showing Staphylococcus. ASSESSMENT: 1. Dislodgement of gastrostomy tube with reinsertion for palliative purposes. 2. Fever with possible sepsis secondary to urinary tract infection with gram-negative bacilli. 3. Possible pneumonia or cellulitis around the PEG tube site. 4. History of metastatic endometrial carcinoma on palliative care. 5. History of colon cancer. 6. Possible right lower lobe pneumonia, possibly aspiration. 7. History of congestive heart failure, on TPN. 8. Hypertension. 9. History of degenerative joint disease. 10.History of urinary tract infection, present on admission. 11.Acute bronchitis. 12.Sleep apnea. 13.Hypothyroidism. 14.History of bariatric surgery. 15.History of bowel resection. 16.History of hernia repair. 17.History of gastric stapling. 18.Anxiety, depression. 19.Obesity. 20.Anemia, normocytic anemia of chronic disease. RECOMMENDATION: recommend to continue current management and symptomatic treatment. At this time I recommend continue with the broad-spectrum IV antibiotics, cultures and the patient is also complaining of severe pain. Patient is already receiving fentanyl patch at this time. I recommend p.r.n. medications as well. Further recommendations to follow. See orders for further orders. Monitor lytes. Prognosis guarded. MMEDGARDOL / IJN: [id number] /
[2018-02-25] MEDS: 1: MVI, ADULT NO.4 WITH VIT K 10 ML, TRACE (CONC-1ML/DOSE) 1 ML in AMINO ACID 5%-D15W+LY IV SCH ×3 (21:13)
[2018-02-25] MEDS: FAT EMULSION 20% 250 ML in EMPTY BAG 1 BAG IV SCH (21:13)
--- NOTE | 2018-02-26 00:05 | PN ---
PROGRESS NOTE DATE OF SERVICE: 02/25/2018 REASON FOR FOLLOWUP: 1. Abdominal wall cellulitis. 2. Urinary tract infection. 3. Bacteremia. INTERVAL HISTORY: The patient's clinical course has been complicated by developing of bacteremia with blood culture showing gram-positive cocci, urine showing enterococcus species. The patient currently denies having any chest pain or shortness of breath or cough. No nausea or vomiting. The leakage around the G-tube has decreased and the redness has slightly decreased. The patient denies having nausea. No vomiting. No diarrhea. No new symptoms. REVIEW OF SYSTEMS: Positive points have been mentioned in the HPI. The rest of the systems has been negative. Past medical and surgical history reviewed. No change in medication. Reviewed. PHYSICAL EXAMINATION: Her blood pressure is 126/65, pulse of 87, temperature 98.9. She is 94% on 2 L nasal cannula. General description is an elderly female up in a chair in no distress. HEENT EXAMINATION: Pallor. No scleral icterus. Oral mucosa membrane is dry. NECK: Trachea is central. No thyromegaly. LUNGS: Unlabored breathing. Decreased breath sounds in the bases. No wheeze. HEART: S1, S2. Regular rate and rhythm. ABDOMEN: Soft. The erythema around the G-tube site has minimally decreased. No fluctuation, induration or any foul smell. EXTREMITIES: Some chronic swelling. No redness. Neurologically the patient is awake, alert, oriented x3. Mood and affect normal. LABS: Hemoglobin 9.8, white count 7.1. BUN of 19, creatinine 0.72. Urine is showing gram- negative as well as group D Enterococcus. Blood culture with gram-positive cocci in clusters. DIAGNOSTIC IMPRESSION AND PLAN: Patient with a fever. Source is likely urinary tract infection, now with evidence of gram-positive bacteremia; could be the same pathogen that she has in the urine. Currently showing enterococcus; or could be Staphylococcus aureus blood culture. However, the patient also has abdominal wall cellulitis and it could be the source of bacteremia. At this time we will repeat the blood cultures to document clearance of her bacteremia. Will add vancomycin while watching her kidney function closely. Patient to continue with local treatment to the rash with Mycolog cream and the Zosyn to cover for the gram-negative seen in the urine as well. Overall prognosis remains guarded. Continue with supportive care. MMODL / IJN: [id number] /
[2018-02-26] MEDS: VANCOMYCIN 1,750 MG in SODIUM CHLORIDE 0.9% 500 ML 500 ML IVPB SCH ×3 (00:54→16:41)
[2018-02-26] MEDS: ACETAMINOPHEN TAB 325 MG TAB PO PRN ×2 (02:15→20:09)
[2018-02-26] MEDS: PIPERACILLIN-TAZOBACTAM 3.375 GM in SODIUM CHLORIDE 0.9% 100 ML IVPB SCH ×3 (04:00→23:24)
[2018-02-26] MEDS: LEVOTHYROXINE 75 MCG TAB PO SCH (06:10)
[2018-02-26] MEDS: IPRATROPIUM-ALBUTEROL 3 ML NEB INHALATION SCH ×3 (07:07→19:11)
[2018-02-26] MEDS: HEPARIN SODIUM,PORCINE 5,000 UNIT/ML 1 ML VIAL SQ SCH ×2 (08:19→22:00)
[2018-02-26] MEDS: GABAPENTIN 300 MG CAP PO SCH ×3 (08:20→23:35)
[2018-02-26] MEDS: FAMOTIDINE 20 MG TAB PO SCH ×2 (08:20→22:01)
[2018-02-26] MEDS: PANTOPRAZOLE 40 MG/10 ML VIAL IVP SCH (08:20)
[2018-02-26] MEDS: LEVOFLOXACIN 750 MG TAB PO SCH (08:20)
[2018-02-26] MEDS: NYSTATIN 100,000UNIT/GM CREAM 30 GM TUBE TOPICAL SCH ×2 (08:21→22:02)
[2018-02-26] MEDS: TRIAMCINOLONE 0.1% CREAM 80 GM TUBE TOPICAL SCH ×2 (08:21→22:02)
[2018-02-26] MEDS ORDERED: ERGOCALCIFEROL 50,000 UNIT CAP PO SCH (09:00)
[2018-02-26 09:51] LABS: Basophils # (A) 0.1 k/uL (0-0.2); Basophils % (A) 1 %; Eosinophils # (A) 0.3 k/uL (0-0.7); Eosinophils % (A) 4 %; HCT 31.3 % (34.0-46.0); HGB 10.2 gm/dL (11.4-16.0); Hypochromasia Slight; Lymphocytes # (A) 1.1 k/uL (1.0-4.8); Lymphocytes % (A) 15 %; MCH 31.3 pg (25.0-35.0); MCHC 32.5 g/dL (31.0-37.0); MCV 96.3 fL (80.0-100.0); Monocytes # (A) 0.4 k/uL (0-1.0); Monocytes % (A) 5 %; Neutrophils # (A) 5.4 k/uL (1.3-7.7); Neutrophils % (A) 73 %; Platelet Count 413 k/uL (150-450); RBC 3.25 m/uL (3.80-5.40); RDW 13.8 % (11.5-15.5); WBC 7.4 k/uL (3.8-10.6)
[2018-02-26 10:17] LABS: Anion Gap 7 mmol/L; Blood Urea Nitrogen 17 mg/dL (7-17); Calcium 8.1 mg/dL (8.4-10.2); Carbon Dioxide 25 mmol/L (22-30); Chloride 106 mmol/L (98-107); Glucose 136 mg/dL (74-99); Magnesium 1.7 mg/dL (1.6-2.3); Phosphorus 4.1 mg/dL (2.5-4.5); Potassium 3.7 mmol/L (3.5-5.1); Sodium 138 mmol/L (137-145)
[2018-02-26 10:24] LABS: Ionized Calcium 4.9 mg/dL (4.5-5.3)
[2018-02-26] MEDS ORDERED: POTASSIUM CHLORIDE 20 MEQ in WATER FOR INJECTION 1 100ML.BAG IVPB ONE (11:00)
[2018-02-26] MEDS: 1: MVI, ADULT NO.4 WITH VIT K 10 ML, TRACE (CONC-1ML/DOSE) 1 ML in AMINO ACID 5%-D15W+LY IV SCH ×6 (11:05→23:34)
[2018-02-26] MEDS: MAGNESIUM SULFATE-D5W PMX 1 GM in DEXTROSE/WATER 1 100ML.BAG IVPB SCH ×2 (11:07→14:46)
--- NOTE | 2018-02-26 12:19 | P.PN ---
Subjective Progress Note Date: 02/26/18 Principal diagnosis: G-tube malfunction Patient doing well at this time. Minimal drainage around the tube at this point. Denies pain. Objective - Vital Signs Vital signs: Vital Signs Temp 98.9 F 02/26/18 06:00 Pulse 83 02/26/18 08:00 Resp 20 02/26/18 08:00 BP 115/66 02/26/18 06:00 Pulse Ox 97 02/26/18 06:00 Intake & Output 02/25/18 02/26/18 02/26/18 18:59 06:59 18:59 Intake Total 680 360 Output Total 1000 5700 Balance -1000 -5020 360 Weight 108.635 kg Intake: Oral 680 360 Output: Gastric Drainage 500 Urine 1000 5200 Uretheral (Bustamante) 2100 Other: Voiding Method Indwelling Catheter Indwelling Catheter Indwelling Catheter - Exam Gastrostomy tube appropriately placed, minimal drainage on the dressings - Labs CBC & Chem 7: 02/26/18 09:21 02/26/18 09:21 Labs: Abnormal Lab Results - Last 24 Hours (Table) 02/26/18 02/26/18 Range/Units 09:21 09:21 RBC 3.25 L (3.80-5.40) m/uL Hgb 10.2 L (11.4-16.0) gm/dL Hct 31.3 L (34.0-46.0) % Glucose 136 H (74-99) mg/dL Calcium 8.1 L (8.4-10.2) mg/dL Microbiology - Last 24 Hours (Table) 02/23/18 23:50 Blood Culture Gram Stain - Preliminary Blood Blood Culture - Preliminary Coagulase Negative Staph 02/24/18 02:00 Urine Culture - Preliminary Urine,Catheterized Gram Neg Bacilli Group D Enterococcus Assessment and Plan (1) Malfunction of gastrostomy tube Narrative/Plan: Continue gastrostomy tube to dependent drainage. We'll sign off. Please call if needed. Current Visit: Yes Status: Acute Priority: High Code(s): K94.23 - GASTROSTOMY MALFUNCTION SNOMED Code(s): 554460992
[2018-02-26] MEDS ORDERED: HYDROcodone/APAP 15 ML SOLUTION PO PRN (15:02)
--- NOTE | 2018-02-26 21:45 | PN ---
PROGRESS NOTE DATE OF SERVICE: 02/26/2018 REASON FOR FOLLOWUP: 1. Urinary tract infection. 2. Abdominal wall cellulitis. INTERVAL HISTORY: The patient is currently afebrile. She is breathing comfortably. Denies having any chest pain or shortness of breath or cough. Overall drainage around the G-tube site has decreased and the redness has decreased as well. No nausea, vomiting and no diarrhea. PHYSICAL EXAMINATION: Blood pressure 137/75 with a pulse of 88, temperature 98.7. She is 96% on room air. General description is an elderly female up in the chair in no distress. HEENT EXAMINATION : Slight pallor. No scleral icterus. LUNGS: Unlabored breathing. Clear to auscultation anteriorly. Heart S1, S2. Regular rate and rhythm. ABDOMEN: Soft. Abdominal wall redness has decreased. EXTREMITIES: Some trace edema of feet. LABS: Hemoglobin 10.2, white count 7.4, BUN of 17, creatinine 0.70. Urine finalized with Klebsiella pneumoniae and VRE. Blood culture with coagulase-negative staph. DIAGNOSTIC IMPRESSION AND PLAN: 1. Patient with a positive blood culture with coagulase-negative staphylococcus, likely skin contamination. No need for any therapy for the same. 2. Patient with Klebsiella pneumoniae and vancomycin-resistant Enterococcus urinary tract infection. Antibiotic will be changed to oral Cipro and Augmentin. Also advise change of Bustamante catheter. Obtain urine culture from new Bustamante. 3. Abdominal wall cellulitis. Continue local wound care with Mycolog cream twice a day and continue with supportive care. MMODL / IJN: [id number] /
[2018-02-26] MEDS: FAT EMULSION 20% 250 ML in EMPTY BAG 1 BAG IV SCH (21:49)
[2018-02-26] MEDS: CIPROFLOXACIN HCL 500 MG TAB PO SCH (22:01)
[2018-02-26] MEDS: AMOXIC-POT CLAV 875-125MG 1 EACH TAB PO SCH (22:01)
[2018-02-27] MEDS: ACETAMINOPHEN TAB 325 MG TAB PO PRN ×3 (03:05→16:14)
[2018-02-27] MEDS: LEVOTHYROXINE 75 MCG TAB PO SCH (06:23)
[2018-02-27] MEDS: IPRATROPIUM-ALBUTEROL 3 ML NEB INHALATION SCH ×2 (07:39→13:05)
[2018-02-27] MEDS: CIPROFLOXACIN HCL 500 MG TAB PO SCH (08:14)
[2018-02-27] MEDS: PANTOPRAZOLE 40 MG/10 ML VIAL IVP SCH (08:14)
[2018-02-27] MEDS: FAMOTIDINE 20 MG TAB PO SCH (08:14)
[2018-02-27] MEDS: AMOXIC-POT CLAV 875-125MG 1 EACH TAB PO SCH (08:14)
[2018-02-27] MEDS: GABAPENTIN 300 MG CAP PO SCH ×2 (08:14→16:10)
[2018-02-27] MEDS: HEPARIN SODIUM,PORCINE 5,000 UNIT/ML 1 ML VIAL SQ SCH (08:14)
[2018-02-27] MEDS: TRIAMCINOLONE 0.1% CREAM 80 GM TUBE TOPICAL SCH (08:15)
[2018-02-27] MEDS: NYSTATIN 100,000UNIT/GM CREAM 30 GM TUBE TOPICAL SCH (08:15)
[2018-02-27 09:28] LABS: Basophils # (A) 0.1 k/uL (0-0.2); Basophils % (A) 1 %; Eosinophils # (A) 0.3 k/uL (0-0.7); Eosinophils % (A) 4 %; HCT 30.9 % (34.0-46.0); HGB 9.8 gm/dL (11.4-16.0); Hypochromasia Moderate; Lymphocytes # (A) 1.4 k/uL (1.0-4.8); Lymphocytes % (A) 21 %; MCH 30.7 pg (25.0-35.0); MCHC 31.7 g/dL (31.0-37.0); MCV 96.8 fL (80.0-100.0); Mean Platelet Volume 6.8; Monocytes # (A) 0.5 k/uL (0-1.0); Monocytes % (A) 8 %; Neutrophils # (A) 4.3 k/uL (1.3-7.7); Neutrophils % (A) 63 %; Platelet Count 380 k/uL (150-450); RBC 3.19 m/uL (3.80-5.40); RDW 13.7 % (11.5-15.5); WBC 6.8 k/uL (3.8-10.6)
[2018-02-27 09:31] LABS: Ionized Calcium 4.9 mg/dL (4.5-5.3)
[2018-02-27 09:41] LABS: Anion Gap 6 mmol/L; Blood Urea Nitrogen 17 mg/dL (7-17); Carbon Dioxide 27 mmol/L (22-30); Chloride 105 mmol/L (98-107); Glucose 102 mg/dL (74-99); Magnesium 1.9 mg/dL (1.6-2.3); Phosphorus 4.2 mg/dL (2.5-4.5); Potassium 3.8 mmol/L (3.5-5.1); Sodium 138 mmol/L (137-145)
[2018-02-27] MEDS: POTASSIUM CHLORIDE 10 MEQ in WATER FOR INJECTION 1 100ML.BAG IVPB SCH ×2 (11:14→13:16)
[2018-02-27] MEDS: MAGNESIUM SULFATE-D5W PMX 1 GM in DEXTROSE/WATER 1 100ML.BAG IVPB SCH ×2 (11:14→13:16)
[2018-02-27] MEDS: 1: MVI, ADULT NO.4 WITH VIT K 10 ML, TRACE (CONC-1ML/DOSE) 1 ML in AMINO ACID 5%-D15W+LY IV SCH ×3 (11:27)
--- NOTE | 2018-02-27 15:33 | P.DS ---
Providers Date of admission: 02/24/18 03:56 Expected date of discharge: 02/27/18 Attending physician: Padilla Monsalve Consults: 02/24/18 14:58 Consult Physician Routine Consulting Provider: Chas Marquez Consult Reason/Comments: G tube replacement Do you want consulting provider notified?: Yes 02/24/18 14:59 Consult Physician Routine Consulting Provider: Jeanette Camacho Consult Reason/Comments: infection skin around g TUBE Do you want consulting provider notified?: Yes 02/26/18 14:35 Consult Physician Routine Consulting Provider: Doug Rao Consult Reason/Comments: Endometrial cancer with mets Do you want consulting provider notified?: Yes Primary care physician: Rojas Vanegas Final Diagnoses: -Dislodgment of gastrostomy tube with replacement for palliative purposes -Fever, possible sepsis secondary to UTI with Klebsiella pneumoniae and VRE, positive blood cultures with coagulase-negative staphyloccus-suspect contamination. -Abdominal wall cellulitis -Possible right lower lobe pneumonia, possibly aspiration -Possibly cellulitis around the PEG tube site -History of metastatic endometrial carcinoma on palliative care -Acute bronchitis Hospital course: This is 67-year-old female admitted with dislodged PEG tube, evaluated by surgery, status post replacement. Tolerated procedure well. Maintained on IV antibiotics, local wound care as per infectious disease. Afebrile. Pain better controlled. Significant clinical improvement. Met with [facility] for informational meeting. Outpatient follow-up with oncology. Cleared by infectious disease and surgery for discharge. Patient is being discharged to subacute rehab in a stable condition with guarded prognosis. Exam: Sitting up in bed, no acute distress.CV: Regular S1 and S2, trace edema .LUNGS: Unlabored, diminished. ABD: Soft, nontender, decreased abdominal wall redness. Neuro: No focal deficits. Microbiology 02/25/18 15:05 Blood Blood Culture Gram Stain - Preliminary 02/25/18 15:05 Blood Blood Culture - Preliminary Coagulase Negative Staph 02/24/18 02:00 Urine,Catheterized Urine Culture - Preliminary Klebsiella pneumoniae Enterococcus faecalis VRE 02/23/18 23:50 Blood Blood Culture Gram Stain - Final 02/23/18 23:50 Blood Blood Culture - Final Coagulase Negative Staph 02/25/18 15:05 Blood Blood Culture - Final 02/23/18 23:50 Blood Blood Culture - Final The impression and plan of care has been dictated as directed. : I performed a history and examination of this patient, discussed the same with the dictator. I agree with the dictator's note ,documented as a scribe. Any additional findings or plans will be noted. Time taken: 35 minutes - Patient Condition at Discharge: Stable Plan - Discharge Summary Discharge Rx Participant: No New Discharge Prescriptions: New Ipratropium-Albuterol Nebulize [Duoneb 0.5 mg-3 mg/3 ml Soln] 3 ml INHALATION RT-TID ampul.neb Ipratropium-Albuterol Nebulize [Duoneb 0.5 mg-3 mg/3 ml Soln] 3 ml INHALATION RT-TID PRN ampul.neb PRN Reason: Shortness Of Breath Or Wheezing Triamcinolone 0.1% Cream [Kenalog 0.1% Cream] 1 applic TOPICAL BID applic Amoxic-Pot Clav 875-125Mg [Augmentin 875-125] 1 each PO Q12HR #14 tab Ciprofloxacin HCl [Cipro] 500 mg PO BID #14 tab Nystatin 100,000Unit/gm Cream [Mycostatin Cream] 1 applic TOPICAL BID applic oxyCODONE HCL [OxyIR] 5 mg PO Q6H PRN #12 tab PRN Reason: Pain Continue Levothyroxine Sodium [Synthroid] 150 mcg PO DAILY Gabapentin [Neurontin] 300 mg PO Q8HR Famotidine [Pepcid] 20 mg PO BID Ergocalciferol [Vitamin D2 (DRISDOL)] 50,000 unit PO WE Citalopram Hydrobromide [CeleXA] 40 mg PO HS PRN PRN Reason: DEPRESSION Tpn 1 dose IV DIRECTED fentaNYL 100MCG/HR PATCH [Duragesic 100MCG/HR] 100 mcg TRANSDERM Q72H #1 patch fentaNYL 50MCG/HR PATCH [Duragesic 50MCG/HR] 50 mcg TRANSDERM Q72H #1 patch Discharge Medication List Levothyroxine Sodium [Synthroid] 150 mcg PO DAILY 11/26/14 [History] Citalopram Hydrobromide [CeleXA] 40 mg PO HS PRN 02/07/18 [History] Ergocalciferol [Vitamin D2 (DRISDOL)] 50,000 unit PO WE 02/07/18 [History] Famotidine [Pepcid] 20 mg PO BID 02/07/18 [History] Gabapentin [Neurontin] 300 mg PO Q8HR 02/07/18 [History] Tpn 1 dose IV DIRECTED 02/24/18 [History] Amoxic-Pot Clav 875-125Mg [Augmentin 875-125] 1 each PO Q12HR #14 tab 02/27/18 [ Rx] Ciprofloxacin HCl [Cipro] 500 mg PO BID #14 tab 02/27/18 [Rx] Ipratropium-Albuterol Nebulize [Duoneb 0.5 mg-3 mg/3 ml Soln] 3 ml INHALATION RT -TID ampul.neb 02/27/18 [Rx] Ipratropium-Albuterol Nebulize [Duoneb 0.5 mg-3 mg/3 ml Soln] 3 ml INHALATION RT -TID PRN ampul.neb 02/27/18 [Rx] Nystatin 100,000Unit/gm Cream [Mycostatin Cream] 1 applic TOPICAL BID applic [Rx] Triamcinolone 0.1% Cream [Kenalog 0.1% Cream] 1 applic TOPICAL BID applic 02/27 [Rx] fentaNYL 100MCG/HR PATCH [Duragesic 100MCG/HR] 100 mcg TRANSDERM Q72H #1 patch 02/27/18 [Rx] fentaNYL 50MCG/HR PATCH [Duragesic 50MCG/HR] 50 mcg TRANSDERM Q72H #1 patch [Rx] oxyCODONE HCL [OxyIR] 5 mg PO Q6H PRN #12 tab 02/27/18 [Rx] Follow up Appointment(s)/Referral(s): Chas Marquez MD [Medical Doctor] - 1 Week Doug Rao MD [STAFF PHYSICIAN] - 1 Week Rojas Vanegas DO [Primary Care Provider] - 3 Days Jeanette Camacho MD [STAFF PHYSICIAN] - 10 Days Activity/Diet/Wound Care/Special Instructions: Denita Captiva cbc,bmp in 3 days Discharge Disposition: TRANSFER TO SNF/ECF
[2018-02-27 15:36] VITALS: BP 111/60; PULSE 103; RESP 18; TEMP 98.1
--- NOTE | 2018-02-27 17:07 | PN ---
PROGRESS NOTE DATE OF SERVICE: 02/27/2018. REASON FOR FOLLOWUP: 1. Abdominal wall cellulitis. 2. UTI. INTERVAL HISTORY: The patient is afebrile. She is breathing comfortably. The patient denies having any chest pain or shortness of breath or cough. No abdominal pain or any diarrhea. PHYSICAL EXAMINATION: Blood pressure is 111/60 with a pulse of 103. Temperature 98.1. She is 97% on room air. General description is an elderly female up in the chair in no distress. Respiratory system: Unlabored breathing. Clear to auscultation anteriorly. Heart S1, S2. Regular rate and rhythm. ABDOMEN: Soft. The redness around the G-tube site has decreased. LABS: Hemoglobin 9.8, white count 6.2, BUN of 17, creatinine 0.62. DIAGNOSTIC IMPRESSION AND PLAN: 1. Patient with abdominal wall cellulitis. Continue local wound care with Mycolog cream. 2. Urinary tract infection with Klebsiella and VRE. Seven day course of oral Cipro and Augmentin. 3. Continue supportive care. MMODL / IJN: [id number] /
--- NOTE | 2018-02-27 18:17 | P.CONS ---
History of Present Illness - Reason for Consult Consult date: 02/27/18 Pt known to us Requesting physician: Yuli [place] - Chief Complaint Pain - History of Present Illness is a pleasant white female, who had presented in early July with complains of a pinkish discharge per vagina. She was seen by Dr. Ventura at [facility], and had endometrial biopsy done that was positive for endometrial cancer. The patient was then seen at [facility] by Dr. Haney , and surgery was planned. CT scans from 08/01/16 showed uterus to be mildly prominent with thickened endometrial stripe at 2.1 cm. No other mass lesions, omental changes or adenopathy was noted. The patient states that she is supposed to have surgery in August but this was postponed. She will not clear as to the exact reason. She had attempted surgery on . However at that time , the tumor was found to be locally extensive involving the urinary bladder, the sigmoid colon, as well as the left ureter causing hydronephrosis. Therefore surgery was aborted. Peritoneal washings were done which were negative for malignancy. Computed tomography scan of the chest, abdomen and pelvis, from 10/24 confirmed a large cystic and solid mass centered within the uterus with invasion of the urinary bladder and sigmoid colon, with obstructive left hydronephrosis. No pelvic adenopathy was noted. The patient subsequently had a PET scan which showed uptake in this mass, as well as apparently in a para- aortic node. That report is not available to us. The patient was then seen by oncology, Dr. Mcfarlane , at [place], as well as [facility] , , in [place]. Preop chemotherapy was recommended. The patient wanted to have treatment here as she lives in [place]. She was therefore referred here to establish care. She denied any prior history of malignancy. She does have a history of bariatric surgery, which was a Deven-en-Y bypass. She was diagnosed with iron and B12 deficiency during her follow-up and [place], and has been started on parenteral supplementation. She started chemo with Carbo + DD Taxol, and is s/p 1 cycle. completing that on 12/14/16. She has continued IM B12, and is s/p 2 Venofer infusions. 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 She was seen by [facility], Dr Arteaga, at [place], and it was decided to proceed to surgery on 01/11/17 and to stop chemo She had surgery on 01/15/17, with a permanent colostomy. Per the pt lymph node biopsy was negative, but dissection was not done. Pathology report and operative report for subsequently obtained, after her office visit. The operative report indicated the presence of a large amount of tumor behind the urinary bladder, with trapping of the ureter. This area of the tumor was quite fixed and could not be resected. There was also concern of transection of a ureter. Intraoperatively, there appeared to be involvement of the rectosigmoid with a mass. She underwent resection of the uterus and the rectosigmoid mass, along with placement of bilateral ureteral stents. Due to the Extent of tumor behind the bladder, as well as new finding of the rectosigmoid mass, lymph node dissection could not be done. 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 The rectosigmoid tumor was T4, with invasion through the serosa. 0/5 nodes were involved. As noted previously, the pts' situation was quite complicated with residual tumor and nodes noted on PET , from one or both malignancies. She elected against any further active treatment. Palliative care is following her. She had emergency hernia surgery in 08/26, due to her abdominal hernia obstructing her ostomy. She had MRI and biopsy in 11/26 , showing progression, with the pathology too poorly differentiated to distinguish the primary. She was changed to Fentanyl 75 and Percocet 5-325 on 11/04/17. Dose was further increased to Fentanyl 100 mcg , and Percocet 10-325 in 11/26. She subsequently changed to Oxy IR 10 mg Ms. King has had a hard time over the past few months controlling her pain and remaining within the limitiations of her pain medications. She has ran out each month and repeated counseling and referrals have been made. She presented for a displaced G-Tube. Hematology Oncology has been consulted regarding her pain management as we were managing in office, although today when I ran her MAPS she has not been compliant with the narcotic aggreement she has signed in the office. Review of Systems A 14 point review of systems assessed and completed and all negative except hpi Past Medical History Past Medical History: Blood Disorder, Cancer, Heart Failure, Eye Disorder, Hearing Disorder / Deafness, Hypertension, Osteoarthritis (OA), Sleep Apnea/CPAP /BIPAP, Thyroid Disorder Additional Past Medical History / Comment(s): Metastatic endometrial cancer, colon cancer, protein calorie malnutrition, pt states enlarged heart and 2 leaky heart valves, hx SWEETIE but no Cpap use since wt loss, bronchitis, hypothyroid, UTIs, urinary retention/IDC, arthritis bilateral knees, bilateral eyes with cataracts, DJD, pt has G-tube, colostomy, cardenas cath and recieves TPN. History of Any Multi-Drug Resistant Organisms: VRE Year Discovered:: 02-26-2018 MDRO Source:: urine Past Surgical History: Bariatric Surgery, Bladder Surgery, Bowel Resection, Hernia Repair, Hysterectomy, Tonsillectomy, Tubal Ligation Additional Past Surgical History / Comment(s): Gastric Stapling 1978, subtotal gastrectomy/deven en Y, bowel resection, incisional hernia repair, bladder repair with hysterectomy, D&C, pilonidal cyst, 2 ureteral stents d/t metastatic cancer. Past Anesthesia/Blood Transfusion Reactions: Motion Sickness Smoking Status: Never smoker - Past Family History Mother Family Medical History: Neurologic Disorder Additional Family Medical History / Comment(s): PACEMAKER, [place] Father Family Medical History: Myocardial Infarction (MD) Additional Family Medical History / Comment(s): AFTER HAVING HIS 3RD MD Medications and Allergies Home Medications Medication Instructions Recorded Confirmed Type Levothyroxine Sodium [Synthroid] 150 mcg PO DAILY 11/26/14 02/24/18 History Citalopram Hydrobromide [CeleXA] 40 mg PO HS PRN 02/07/18 02/24/18 History Ergocalciferol [Vitamin D2 50,000 unit PO WE 02/07/18 02/24/18 History (DRISDOL)] Famotidine [Pepcid] 20 mg PO BID 02/07/18 02/24/18 History Gabapentin [Neurontin] 300 mg PO Q8HR 02/07/18 02/24/18 History Tpn 1 dose IV DIRECTED 02/24/18 02/24/18 History Amoxic-Pot Clav 875-125Mg 1 each PO Q12HR #14 tab 02/27/18 Rx [Augmentin 875-125] Ciprofloxacin HCl [Cipro] 500 mg PO BID #14 tab 02/27/18 Rx Ipratropium-Albuterol Nebulize 3 ml INHALATION RT-TID ampul.neb 02/27/18 Rx [Duoneb 0.5 mg-3 mg/3 ml Soln] Ipratropium-Albuterol Nebulize 3 ml INHALATION RT-TID PRN 02/27/18 Rx [Duoneb 0.5 mg-3 mg/3 ml Soln] ampul.neb Nystatin 100,000Unit/gm Cream 1 applic TOPICAL BID applic 02/27/18 Rx [Mycostatin Cream] Triamcinolone 0.1% Cream [Kenalog 1 applic TOPICAL BID applic 02/27/18 Rx 0.1% Cream] fentaNYL 100MCG/HR PATCH 100 mcg TRANSDERM Q72H #1 patch 02/27/18 Rx [Duragesic 100MCG/HR] fentaNYL 50MCG/HR PATCH [Duragesic 50 mcg TRANSDERM Q72H #1 patch 02/27/18 Rx 50MCG/HR] oxyCODONE HCL [OxyIR] 5 mg PO Q6H PRN #12 tab 02/27/18 Rx Allergies Allergy/AdvReac Type Severity Reaction Status Date / Time No Known Allergies Allergy Verified 02/24/18 08:03 Physical Exam Vitals: Vital Signs Temp Pulse Pulse Resp BP Pulse Ox 02/27/18 16:00 18 02/27/18 15:00 98.1 F 103 H 18 111/60 97 02/27/18 13:19 90 02/27/18 13:06 84 02/27/18 08:00 20 02/27/18 07:51 86 02/27/18 07:39 86 02/27/18 07:03 98.5 F 88 20 116/59 96 02/26/18 23:00 98.1 F 88 20 120/57 97 Intake and Output 02/27/18 02/27/18 02/27/18 06:59 14:59 22:59 Intake Total 1100 Output Total 3200 1600 1400 Balance -2100 -1600 -1400 Intake: Intake, IV Titration 1000 Amount Amino Acid 5%-D15w+Lytes* 1000 E* 1,000 ml @ 80 mls/hr IV .BY DURATION ENOC Rx#: [id number] Oral 100 Output: Gastric Drainage 200 75 Urine 3000 1600 1325 Uretheral (Cardenas) 1400 1600 Stool 0 Other: Voiding Method Indwelling Catheter Indwelling Catheter # Voids 0 General: Well-developed, well-nourished HEENT: Normocephalic, sclerae nonicteric Abdomen: Gastrostomy tube upper midline with excoriated skin around it, mild tenderness, the size of the skin opening is larger than the 18-Urdu tube, nondistended Extremities: No edema Heart: RRR LEGs: Weak, no edema Neuro: Alert and oriented Results CBC & Chem 7: 02/27/18 08:33 02/27/18 08:33 Labs: Abnormal Lab Results - Last 24 Hours (Table) 02/27/18 02/27/18 Range/Units 08:33 08:33 RBC 3.19 L (3.80-5.40) m/uL Hgb 9.8 L (11.4-16.0) gm/dL Hct 30.9 L (34.0-46.0) % Glucose 102 H (74-99) mg/dL Calcium 8.0 L (8.4-10.2) mg/dL Microbiology - Last 24 Hours (Table) 02/25/18 15:05 Blood Culture Gram Stain - Preliminary Blood Blood Culture - Preliminary Coagulase Negative Staph 02/24/18 02:00 Urine Culture - Preliminary Urine,Catheterized Klebsiella pneumoniae Enterococcus faecalis VRE 02/23/18 23:50 Blood Culture Gram Stain - Final Blood Blood Culture - Final Coagulase Negative Staph 02/25/18 15:05 Blood Culture - Final Blood Assessment and Plan (1) Leakage of gastrostomy site Status: Acute Code(s): K94.23 - GASTROSTOMY MALFUNCTION SNOMED Code(s): 566958277 (2) Malfunction of gastrostomy tube Status: Acute Priority: High Code(s): K94.23 - GASTROSTOMY MALFUNCTION SNOMED Code(s): 932524983 (3) Endometrial adenocarcinoma Status: Chronic Priority: Medium Code(s): C54.1 - MALIGNANT NEOPLASM OF ENDOMETRIUM SNOMED Code(s): 993023047 (4) Pain of metastatic malignancy Status: Chronic Priority: High Code(s): G89.3 - NEOPLASM RELATED PAIN (ACUTE ) (CHRONIC) SNOMED Code(s): 751856466 Plan: - Ms King has not been in regulation with agreement of her pain medication despite persistent counseling during her monthly visits. - She will need to be referred to palliative/Pain management or hospice care for further treatment as outpatient, discussed with her in detail.
--- NOTE | 2018-02-27 22:32 | P.PN ---
Subjective Progress Note Date: 02/26/18 Progress note being dictated for Dr. Dixon. Interval history:This is 67-year-old female admitted with dislodged PEG tube, evaluated by surgery, status post replacement. Tolerated procedure well. Maintained on IV antibiotics, local wound care as per infectious disease. Afebrile. Pain control improving. Significant clinical improvement. Initially patient had been palliative care, states when to subacute rehab, became "full care". Currently full code. CODE STATUS discussed, including returning CODE STATUS to no code as previously, but patient and caregiver first want to further discuss cancer prognosis, options with oncology. Questions regarding hospice care . G-tube draining bile. Denies chest pain, palpitations or increasing shortness of breath. Objective - Vital Signs Vital signs: Vital Signs Temp 98.7 F 02/26/18 15:00 Pulse 105 H 02/26/18 15:00 Resp 18 02/26/18 15:52 BP 137/75 02/26/18 15:00 Pulse Ox 96 02/26/18 15:00 Intake & Output 02/26/18 02/26/18 02/27/18 06:59 18:59 06:59 Intake Total 680 1371 Output Total 5700 900 Balance -5020 471 Weight 108.635 kg Intake: Intake, IV Titration 1011 Amount Mvi, Adult No.4 with Vit 1011 K 10 ml Trace (Conc-1Ml/ Dose) 1 ml In Amino Acid 5%-D15w+Lytes*E* 1,000 ml @ 80 mls/hr IV .BY DURATION [facility] Rx#: [id number] Oral 680 360 Output: Gastric Drainage 500 100 Drainage 100 Right Abdomen 100 Urine 5200 700 Uretheral (Bustamante) 2100 Other: Voiding Method Indwelling Catheter Indwelling Catheter - Exam PHYSICAL EXAM: VITAL SIGNS: [As above] GENERAL: Sitting up in bed, no acute distress HEENT: Conjunctivae normal. eyes normal. Oral mucosa moist NECK: No JVD. No thyroid enlargement. No LNs CARDIOVASCULAR: S1, S2 muffled. No murmur RESPIRATION: Breath sounds diminished in the bases. No rhonchi or crackles. ABDOMEN: Soft, nontender . No guarding. no masses palpable. Decreasing redness around G tube -bile colored drainage.Bowel sounds heard. LEGS: Mild edema. no clubbing, no cyanosis PSYCHIATRY: Alert and oriented -3, mood and affect normal. NERVOUS SYSTEM: Cranial N 2-12 grossly normal. Moves all 4 limbs. Diffuse weakness No focal deficits. Microbiology 02/25/18 15:05 Blood Blood Culture Gram Stain - Preliminary 02/25/18 15:05 Blood Blood Culture - Preliminary Coagulase Negative Staph 02/24/18 02:00 Urine,Catheterized Urine Culture - Preliminary Klebsiella pneumoniae Enterococcus faecalis VRE 02/23/18 23:50 Blood Blood Culture Gram Stain - Final 02/23/18 23:50 Blood Blood Culture - Final Coagulase Negative Staph 02/25/18 15:05 Blood Blood Culture - Final 02/23/18 23:50 Blood Blood Culture - Final - Labs CBC & Chem 7: 02/27/18 08:33 02/27/18 08:33 Labs: Abnormal Lab Results - Last 24 Hours (Table) 02/26/18 02/26/18 Range/Units 09:21 09:21 RBC 3.25 L (3.80-5.40) m/uL Hgb 10.2 L (11.4-16.0) gm/dL Hct 31.3 L (34.0-46.0) % Glucose 136 H (74-99) mg/dL Calcium 8.1 L (8.4-10.2) mg/dL Microbiology - Last 24 Hours (Table) 02/23/18 23:50 Blood Culture Gram Stain - Final Blood Blood Culture - Final Coagulase Negative Staph 02/25/18 15:05 Blood Culture Gram Stain - Preliminary Blood 02/25/18 15:05 Blood Culture - Final Blood 02/24/18 02:00 Urine Culture - Preliminary Urine,Catheterized Klebsiella pneumoniae Enterococcus faecalis VRE Assessment and Plan Assessment: -Dislodgment of gastrostomy tube with replacement for palliative purposes -Fever, possible sepsis secondary to UTI with Klebsiella pneumoniae and VRE, positive blood cultures with coagulase-negative staphyloccus-suspect contamination. -Abdominal wall cellulitis -Possible right lower lobe pneumonia, possibly aspiration -Possibly cellulitis around the PEG tube site -History of metastatic endometrial carcinoma on palliative care -Acute bronchitis Plan: Continue on current medication regime ,monitoring and symptomatic treatment. Antibiotics as per infectious disease. Informational hospice consulted. Dr. Rao oncology consulted. Case management/social work to discuss with patient assurance questions regarding subacute rehab, palliative care and hospice care. Maintain supportive care, full CODE STATUS at this time. Discharge planning in progress for tomorrow. The impression and plan of care has been dictated as directed. : I performed a history and examination of this patient, discussed the same with the dictator. I agree with the dictator's note ,documented as a scribe. Any additional findings or plans will be noted.
--- NOTE | 2018-03-03 08:56 | CDI ---
Documentation Clarification Form Date: 03/03/18 From: Marija Cadena Phone: If you have a question regarding this query, please contact Olivia Loera at [phone] between 8am and 5pm. Admit Date: 02/24/2018 3:56:00 AM Patient Name: Alaina King I Visit Number: [id number] Discharge Date: 02/27/2018 5:28:00 PM ATTENTION: The Clinical Documentation Specialists (CDI) and [facility] Coding Staff appreciate your assistance in clarifying documentation. Please respond to the clarification below the line at the bottom and electronically sign. The CDI & [facility] Coding staff will review the response and follow-up if needed. Please note: Queries are made part of the Legal Health Record. If you have any questions, please contact the author of this message via ITS. Dr. Sheri Monsalve A diagnosis of UTI has been documented in the H&P, Dr. Camacho's consult note and 02/25 - 02/26 progress notes, discharge summary and Dr. Dixon's 02/25 progress notes. History/Risk Factors:The patient presented to the ER with PEG malfunction and fever. Patient also had possible sepsis and pneumonia. Per documentation in the ER note this patient was admitted with an indwelling Bustamante catheter/a suprapubic catheter/ urostomy. Clinical Indicators: Urinalysis: Cloudy, Trace protein, moderate blood, large leukocyte esterase, 102 RBC, > 182 WBC, many bacteria Urine culture: Klebsiella pneumonia, Enterococcus faecalis VRE Lab results: WBC 8.3 Treatment: IV Vancomycin, IV Zosyn, PO Augmentin, PO Levaquin and PO Cipro In your professional opinion, can you please clarify the etiology of the UTI, if known? Bustamante catheter UTI not related to catheter/urostomy Other condition, please specify Unable to determine If an infective organism is present, please specify cause and effect relationship if applicable. My impression was already dictated in the note MTDD
== END 2018-02-27 17:28 | DRG 393 ==
LOC: EC 23:28 → 4MS4W 02-24 03:56
PROVIDERS: ADMIT Hospitalist; ATTEND Hospitalist
DX: K94.22 Gastrostomy infection (principal); J69.0 Pneumonitis due to inhalation of food and vomit; L03.311 Cellulitis of abdominal wall; C78.5 Secondary malignant neoplasm of large intestine and rectum; E46 Unspecified protein-calorie malnutrition; Z68.41 Body mass index [BMI] 40.0-44.9, adult; N39.0 Urinary tract infection, site not specified; J20.9 Acute bronchitis, unspecified; I11.0 Hypertensive heart disease with heart failure; I50.9 Heart failure, unspecified; B96.1 Klebsiella pneumoniae [K. pneumoniae] as the cause of diseases classified elsewhere; B95.2 Enterococcus as the cause of diseases classified elsewhere; C54.1 Malignant neoplasm of endometrium; D63.8 Anemia in other chronic diseases classified elsewhere; E03.9 Hypothyroidism, unspecified; E53.8 Deficiency of other specified B group vitamins; E66.9 Obesity, unspecified; F32.9 Major depressive disorder, single episode, unspecified; F41.9 Anxiety disorder, unspecified; G47.33 Obstructive sleep apnea (adult) (pediatric); G89.3 Neoplasm related pain (acute) (chronic); H91.90 Unspecified hearing loss, unspecified ear; M19.90 Unspecified osteoarthritis, unspecified site; G89.29 Other chronic pain; Z16.21 Resistance to vancomycin; Z51.5 Encounter for palliative care; Z79.890 Hormone replacement therapy; Z79.899 Other long term (current) drug therapy; Z98.84 Bariatric surgery status; Z91.19 Patient's noncompliance with other medical treatment and regimen; Z90.710 Acquired absence of both cervix and uterus; Z90.49 Acquired absence of other specified parts of digestive tract; Z87.440 Personal history of urinary (tract) infections; Z98.51 Tubal ligation status; Z82.49 Family history of ischemic heart disease and other diseases of the circulatory system; Z82.0 Family history of epilepsy and other diseases of the nervous system; Y83.3 Surgical operation with formation of external stoma as the cause of abnormal reaction of the patient, or of later complication, without mention of misadventure at the time of the procedure
CPT/HCPCS: 36415; 51702; 71045; 73501; 74018; 80048; 80053; 81001; 82330; 83605; 83735; 84100; 84478; 85025; 85610; 85730; 87040; 87077; 87086; 87150; 87186; 87502; 93005; 94640; 94760; 96365; 96366; 99285